=== PATIENT | female | born 2005 | race Caucasian/White ===

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

== ENCOUNTER 2024-01-13 11:43 | Outpatient (CLI) | payer BC, SELFPAY | END 2024-01-13 11:44 | disposition home or self-care (01) | LOC: ANHSURGERY 11:47 | PROVIDERS: Visit Provider Obstetrics & Gynecology | DX: N93.9 Abnormal uterine and vaginal bleeding, unspecified (principal) | CPT/HCPCS: 36415; 86850; 86900; 86901 ==

== ENCOUNTER 2024-01-20 01:33 | Day surgery (SDC) | payer BC, SELFPAY ==
[2024-01-12 12:51] VITALS: BMI 36.7
--- NOTE | 2024-01-12 13:01 | PC.NURSE ---
Addendum entered by Amirah Carrasco RN 01/13/24 09:30: Pt informed that she may take Vraylar and Topamax the morning of surgery with a small sip of water and to bring inhaler with her to the hospital. Original Note: Report to the Outpatient Waiting Room, entrance under the green pavilion located off [facility], at time _0815_ on date ___01/20/24__. Planned Procedure Time: 1015_.? Time changes happen often and if your time is changed the preop area will call you the afternoon before. - You and your visitor will be asked to self-screen and do not enter if you have any COVID symptoms. Please call surgeon if you need to reschedule. - A mask is optional within the hospital at this time. Patients may have clear liquids (water, carbonated beverages, clear teas, apple juice) until 3 hours prior to surgery with a maximum of 20 ounces. - No food from midnight until time of surgery and no smoking - Infants may have breast milk until 4 hours before surgery, formula 6 hours prior to surgery. - Children will be allowed to drink immediately following surgery.? If applicable, please bring a bottle or sippy cup to assist with drinking. Juice, water, soda, and popsicles are readily available.? For infants on formula, please bring formula the day of surgery.? Pacifiers are allowed. Take only the following medications with a SIP of water on the morning of surgery: __ESCITALOPRAM DO NOT STOP ANY OF YOUR OTHER PRESCRIPTION MEDICATIONS PRIOR TO SURGERY EXCEPT THE FOLLOWING Medications to discontinue per physician NONE Date to take last dose Please no make-up, nail italian, hairspray, perfume, deodorant, or body powder the day of surgery.? No jewelry (including any body piercings) or valuables the day of surgery, leave them at home.? Please take a shower or bath the night before, or the morning of, surgery with an antibacterial soap.? Wear comfortable, loose fitting clothing.? Children are encouraged to wear pajamas. - Jewelry must be removed prior to entering the operating room.? Rings and piercings that are not removed may be cut off. - The hospital will not accept responsibility for valuables.? - Please leave all valuables, including medications, at home the day of surgery. If you are going home after surgery, a licensed backhaul driver must drive you home.? - NO public transportation without another adult if you receive anesthesia. - We recommend that an adult stay with you for 24 hours following discharge. - We also recommend that you do not drive, make important decision, drink alcoholic beverages, or take any drugs that were not prescribed by your health care provider for at least 24 hours after your discharge time. For Pediatric surgeries, we recommend two adults accompany the child home. Follow any additional instructions given to you from your surgeon. Telephone instructions given to _PATIENT___and asked if any additional questions and then verbalized understanding. Patient advised to call surgeon office or pre surgery nurse liaison [phone] if any additional questions.
--- NOTE | 2024-01-17 12:49 | PM.IMHP ---
H&P: HPI History of Present Illness Date/Time: 01/17/24 12:49 Chief Complaint: pelvic pain Narrative: 19-year-old 0 admitted for diagnostic laparoscopy secondary to severe pelvic pain. Is a family history of endometriosis. She would also like to have her tubes looked at where there was will undertake chromopertubation risks and benefits reviewed this procedure included exclusive of , aspiration voiding bleeding, transfusion, perforation injury to bowel, bladder, ureters, or other internal organs with need for open laparotomy. She received the [employer] handout entitled laparoscopy. She had all questions answered. She asked to proceed PMFSH Past Medical History Medical History Abdominal bloating Constipation Diarrhea Nausea UTI (urinary tract infection) Surgical History Surgical History No pertinent past surgical history Social History Social History Smoking status: Never smoker Tobacco type: e-cigarettes/vaping Additional smoking assessment comments: VAPING FOR 1 YR Alcohol intake: current Alcohol use details: 2 PER MONTH Substance use: never Substance use type: does not use Living arrangements: with family Spiritual care concerns: No Meds Home Medications and Allergies Home Medications Medication Instructions Recorded Confirmed Type escitalopram oxalate 10 mg tablet 10 mg PO DAILY 08/31/23 01/12/24 History albuterol sulfate 90 mcg/actuation 2 puff inhalation QID PRN 01/12/24 01/12/24 History aerosol inhaler Shortness Of Breath Or Wheezing cariprazine 1.5 mg capsule 1.5 mg PO DAILY 01/12/24 01/12/24 History topiramate 25 mg sprinkle capsule 25 mg PO DAILY 01/12/24 01/12/24 History (Topamax) Allergies Allergy/AdvReac Type Severity Reaction Status Date / Time No Known Allergies Allergy Verified 01/12/24 12:48 Exam Const: General: cooperative, healthy appearing, comfortable and average body habitus Nutritional Appearance: overweight Orientation/consciousness: oriented to person, oriented to place and oriented to time HENMT: Head: normal to inspection Resp: Effort & Inspection: normal respiratory effort Cardio: Rate: regular rate Rhythm: regular rhythm Heart sounds: S1 normal heart sound present and S2 normal heart sound present GI: Inspection: normal to inspection : External Female Exam: normal external appearance Speculum Exam - Vagina: normal appearance of the vagina Speculum Exam - Cervix: normal appearance of the cervix Bimanual exam- vagina & uterus: uterine shape normal and Uterine tenderness Bimanual Exam- Adnexa, other: tender bilaterally Assessment and Plan Assessment and plan (1) Pelvic pain: Code(s): R10.2 - Pelvic and perineal pain Status: Acute Assessment and Plan: proceed with diagnostic laparoscopy
[2024-01-20] VITALS (9 sets, daily range): BP systolic 103–120; BP diastolic 54–91; PULSE 67–89; RESP 14–20; TEMP 36.3–36.9; O2SAT 96–100
--- NOTE | 2024-01-20 05:29 | WPDHPUPDATE1 ---
History and Physical Update Update Date/Time: 01/20/24 05:29 History and Physical has been reviewed, including an updated exam of the patient. There are NO changes in the patient's condition. Risks, benefits, and alternatives have been discussed and questions answered. Patient agrees to proceed with procedure.
[2024-01-20] MEDS: ACETAMINOPHEN 500 MG TABLET 1000 MG PO (08:45)
[2024-01-20] MEDS: LACTATED RINGERS 1,000 ML 30 ML IV CONT ×2 (08:50→11:33)
[2024-01-20] MEDS: KETOROLAC 15 MG/ML VIAL (*BKC) IV PUSH (08:55)
--- NOTE | 2024-01-20 10:31 | WPDANESEPPF ---
Anes - Initial Pre Proc Eval Procedure: Operation Date: 01/20/24 10:15 Proposed Procedures p Diagnostic Laparoscopy, Chromopertubation - Kody Stout MD Date/Time: 01/20/24 10:31 Surgeon: Kody Stout MD Pre Op Diagnosis: pelvic pain, dysmennorhea, heavy bleeding Patient Data Age: 19 Gender: F Height: 1.63 m Weight: 98.4 kg Last Vital Signs Temp 36.3 C L 01/20/24 08:36 Pulse 89 01/20/24 08:36 Resp 18 01/20/24 08:36 BP 105/91 H 01/20/24 08:36 Pulse Ox 98 01/20/24 08:36 O2 Del Method Room Air 01/20/24 08:36 Allergies Allergy/AdvReac Type Severity Reaction Status Date / Time No Known Allergies Allergy Verified 01/20/24 08:54 Home Medications Medication Instructions Recorded Confirmed Type escitalopram oxalate 10 mg tablet 10 mg PO DAILY 08/31/23 01/20/24 History albuterol sulfate 90 mcg/actuation 2 puff inhalation QID PRN 01/12/24 01/20/24 History aerosol inhaler Shortness Of Breath Or Wheezing cariprazine 1.5 mg capsule 1.5 mg PO DAILY 01/12/24 01/20/24 History topiramate 25 mg sprinkle capsule 25 mg PO DAILY 01/12/24 01/20/24 History (Topamax) hydrocodone 5 mg-acetaminophen 325 1 tablet PO Q4H PRN pain #20 tabs 01/20/24 Rx mg tablet Patient hx anesthesia problems: none Family hx anesthesia problems: none Results Review: All pre-operative results and documents have been reviewed as part of the pre-operative evaluation. [facility] Past Medical History Medical History Abdominal bloating Constipation Diarrhea Nausea UTI (urinary tract infection) Surgical History Surgical History No pertinent past surgical history Social History Social History Smoking status: Never smoker Tobacco type: e-cigarettes/vaping Additional smoking assessment comments: VAPING FOR 1 YR Alcohol intake: current Alcohol use details: 2 PER MONTH Substance use: never Substance use type: does not use Living arrangements: with family Spiritual care concerns: No Anes - Eval Final PreProcedure Day of Procedure 01/20/24 10:31 Patient weight: obese Heart: regular rate and rhythm Lungs: clear to auscultation Airway: Mallampati scale class II Neurological: alert and oriented Last oral intake: >/= 8 hours ASA classification: III Emergent: no Anesthetic plan: proceed Anesthesia type and monitoring: general ETT and standard monitoring Results Review: All pre-operative results and documents have been reviewed as part of the pre-operative evaluation. Informed Consent: The patient's anesthetic plan and its attendant risks and benefits were discussed with the patient/family/POA. Questions were solicited and answers provided to the satisfaction of the patient/family/POA.
[2024-01-20 11:12] LABS: BEDSIDEPREGUCG Negative (Negative)
--- NOTE | 2024-01-20 11:25 | P.OP_ITS ---
Procedure Note - Detailed Date of Procedure 01/20/24 Pre-op Diagnosis pelvic pain, dysmennorhea, heavy bleeding Post-op Diagnosis Other (Pelvic pain/ dysmenorrhea/ bilateral ovarian cysts/ endometriosis) Procedure Performed laparoscopy destruction bilateral ovarian cysts/cautery of endometriosis/ chromopertubation Surgeon Kody Stout MD Anesthesia General Indications 19-year-old female with pelvic pain dyspareunia Findings normal-appearing uterus. Normal-appearing gallbladder and liver edge. Normal- appearing tubes. Bilateral simple ovarian cyst. Small area of endometriosis on right ovary. Description of Procedure Patient was prepped draped in the sterile fashion placed in dorsal lithotomy position. General tracheal anesthesia weighted speculum placed in posterior fornix vagina. The JORGE was placed in the cervix to be used for uterine manipulation and passage of the methylene blue. Bladder was emptied of clear urine in the weighted speculum was removed. The gloves were changed. Infraumbilical incision made the Veress needle passed in the abdomen. Abdomen filled with CO2 gas [id number]. The 5mm trocar advanced under direct visualization with the disc opened in no injury seen. Patient placed in Trendelenburg and a suprapubic incision made. The 5mm trocar advanced direct visualization assuring injury. The above findings were seen in photo documentation undertaken each of the fallopian tube was were open by passage of methylene blue the right was somewhat more difficult to see the blue but eventually it passed. The area of endometriosis on the right ovary was cauter ized at 35 w per 2nd. Irrigation undertaken to clear and photo documentation was undertaken. The lower site removed. The gas removed from the abdomen. The upper site removed. The incisions closed with 4 Monocryl glue. The instruments removed from the vagina. The patient went to recovery in satisfactory condition. All sponge covered view of a instrument counts were correct. There were no immediate complications Estimated Blood Loss 5 Drains No Packing No Pathology None sent Complications No immediate complications Condition Stable Disposition PACU
[2024-01-20] MEDS: fentaNYL CITRATE INJ (*CRX) 100 MCG/2 ML VIAL 25 MCG IV PUSH ×4 (11:55→12:14)
[2024-01-20] MEDS: oxyCODONE HCL (*CRX) 5 MG TAB IR PO (12:52)
== END 2024-01-20 13:45 | disposition home or self-care (01) ==
PROVIDERS: Visit Provider Obstetrics & Gynecology
PROC: (CPT 49320; principal; 2024-01-20 10:15)
DX: R10.2 Pelvic and perineal pain (principal); N94.6 Dysmenorrhea, unspecified; N83.202 Unspecified ovarian cyst, left side; N83.201 Unspecified ovarian cyst, right side
CPT/HCPCS: 58662; 58350; A9270; J1100; J1885; J2250; J2405; J2704; J3010; J7030; J7120; Q9968

== ENCOUNTER 2024-06-17 23:55 | Emergency (ER) | payer BC, SELFPAY ==
--- OUTSIDE RECORDS SUMMARY | 2024-06-17 23:59 | XMS_ITS ---
Author Organization [facility] Address [address] [place] [address] Care Team Providers Care Curb Supervisor Name Role Phone Amirah Palacios Primary Care Provider Allergies Allergen (clinical drug ingredient) Drug/Non Drug Allergy documented on EMR Reaction Allergy Type Onset Date Status No Known Drug Allergy Unknown Drug Allergy Active REASON FOR VISIT Psych F/U, last seen 03/31/23 Medications Medication SIG (Take, Route, Frequency, Duration) Notes Start Date End Date Status Vraylar 3 MG 1 capsule Orally Once a day for 14 days NEEDS TO SCHEDULE APPOINTMENT Not-Taking Vraylar 4.5 MG 1 capsule Orally Once a day for 30 days Active Escitalopram Oxalate 10 MG 1 tablet Orally Once a day for 30 days Active Amphetamine-Dextroa mphet ER 20 MG 1 capsule in the morning Orally Once a day for 30 days 07/28/2023 Active Social History Tobacco Use: Social History Observation Description Date Details (start date - stop date) Current Smoker NA - NA Sex Assigned At : Social History Observation Description Sex Assigned At Female Dont use, Tobacco Use/Smoking Question Answer Notes Are you a current every day smoker Additional Findings: Tobacco User e-Cigarette Tobacco Control (Standard) Question Answer Notes Tobacco use: Current every day smoker Additional Findings: Tobacco user e-cigarette Vital Signs Height 64.50 in 07/28/2023 Weight 164.8 lbs 07/28/2023 BMI 27.85 kg/m2 07/28/2023 BMI Percentile 89.69 % 07/28/2023 Blood pressure systolic 106 mm Hg 07/28/19 24 Blood pressure diastolic 68 mm Hg 024 Heart Rate 79 /min 07/28/2023 Oximetry 98 % 07/28/2023 Temperature 97.4 degrees Fahrenheit 07/28/19 24 Encounters Encounter Location Date Provider Diagnosis [address] [place] [address] 07/28/2023 Amirah Suzanne Bipolar 2 disorder F31.81 ; ADHD (attention deficit hyperactivity disorder) F90.9 ; JASON (generalized anxiety disorder) F41.1 ; Body mass index (BMI) pediatric, 85th percentile to less than 95th percentile for age Z68.53 ; Nutritional counseling Z71.3 and Exercise counseling Z71.82 Assessments Encounter Date Diagnosis (ICD Code) Assessment Notes Treatment Notes Treatment Clinical Notes Section Notes 07/28/2023 Bipolar 2 disorder (ICD-10 - F31.81) 07/28/2023 ADHD (attention deficit hyperactivity disorder) (ICD-10 - F90.9) 07/28/2023 JASON (generalized anxiety disorder) (ICD-10 - F41.1) 07/28/2023 Body mass index (BMI) pediatric, 85th percentile to less than 95th percentile for age (ICD-10 - Z68.53) 07/28/2023 Nutritional counseling (ICD-10 - Z71.3) 07/28/2023 Exercise counseling (ICD-10 - Z71.82) 07/28/2023 Other May self-administer medications or be administered own oral medications per [facility] protocols. Provided informed consent with understanding of side effects, adverse effects, risks and benefits as well as alternative treatments as previously discussed and with the above recommended medications & other aspects of the treatment program. Agrees to return sooner if symptoms worsen or suicidal or homicidal ideations occur. Plan Of Treatment Medication Medication Name Sig Start Date Stop Date Notes Vraylar 4.5 MG 1 capsule Orally Onc e a day for 30 days Vyvanse 50 MG 1 capsule in the mor yordan Orally Once a day for 30 days Escitalopram Oxalate 10 MG 1 tablet Oral ly Once a day for 30 days Amphetamine-Dextroamphet ER 20 MG 1 capsule in the morning Orally Once a day for 30 days 07/28/2023 Treatment Notes Assessment Notes Other May self-administer medications or be administered own oral medications per [facility] protocols. Provided informed consent with understanding of side effects, adverse effects, risks and benefits as well as alternative treatments as previously discussed and with the above recommended medications & other aspects of the treatment program. Agrees to return sooner if symptoms worsen or suicidal or homicidal ideations occur. Next Appt Details Follow Up: 4 Weeks, Reason: Psychiatric Follow-up & Medication Management Progress Notes * Merlyn ROBLERODOB:[birth year] (18 yo F)Acc No.[id number]:07/28/2023 Patient: Merlyn FISHER Provider: Saad Palacios, DNP, APPEALS AND GENERALIST CLERK, PMHNP-BC :2005 A ge:18 Y S ex:Female Date:07/28/2023 Address: [address], [id number] Check In:12:10 PM INTERMEDIATE ACCOUNTANT Subjective: * Chief Complaints: * P sych F/ULast seen 03/31/23 * HPI: I nterim History: Emergency room visit N o. Was hospitalized N o. D epression Screening: PHQ-9 L ittle interest or pleasure in doing things?Several days F eeling down, depressed, or hopeless N early every day T rouble falling or staying asleep, or sleeping too much N early every day F eeling tired or having little energy N early every day P oor appetite or overeating N early every day F eeling bad about yourself or that you are a failure, or have let yourself or your family down M ore than half the days T rouble concentrating on things, such as reading the newspaper or watching television N early every day M oving or speaking so slowly that other people could have noticed; or the opposite, being so fidgety or restless that you have been moving around a lot more than usual N early every day T houghts that you would be better off or of hurting yourself in some way N ot at all T otal Score 2 1 I nterpretation S evere Depression S creening: Bland Suicide Severity Rating Scale (LF) D o you want to initiate with S creener form 1 . Wish to be : Have you wished you were or wished you could go to sleep and not wake up? N o 2 . Suicidal Thoughts: Have you actually had any thoughts of killing yourself? N o 6 . Suicide Behaviour: Have you ever done anything,started to do anything, or prepared to end your life? N o I nterpretation: L ow Risk P elsie Note: 18-year-old female client presents in-person for follow-up psychiatric and medication management appointment. Client was last seen on 03/31/2023 as a new client evaluation and is being followed for the management of bipolar 2 disorder and ADHD. Client is amenable to appointment today. Changes since the last visit: Likes the Vraylar and Lexapro. The Vyvanse is making her tired and feeling like a zombie and make her feel worried, restless and have poor concentration. She would like to try something else for ADHD. Goals: Management of ADHD signs and symptoms and mood stabilization Medications effective.: Reports that medications are somewhat effective Medication Adherence: Not taking Vyvanse due to above complaints Side effects.: See above Sleep: Reports difficulty getting to sleep - takes several hours to get to sleep. Nightmares/Night terrors: Denies Appetite: Good - reports overeating Mood: More depressed lately, worried Depression Rating (10/10 being the worst): 6-7 Suicidal ideation: Denies Homicidal ideation: Denies Anxiety Rating (10/10 being the worst): 9 Anger/Irritability Rating (10/10 being the worst): 9 Psychotic Symptoms/Behaviors: None observed or reported Manic Behaviors: None observed or reported Obsessive/Compulsive Behaviors: None observed or reported Signs/Symptoms of trauma/PTSD: None observed or reported Substance Use: Caffeine - Not assessed this visit, N icotine - Vaping daily, A lcohol - on weekends--3-4 drinks on Fridays and Saturdays, M arijuana - None, O ther Substances - None Medical concerns or hospitalizations: No medical concerns at this time Therapy: Not currently in therapy. C SSRS Interpretation and Follow Up Plan: CSSRS Interpretation and Follow Up Plan. CSSRS Interpretation and Follow Up Plan C SSRS Screen documented using SF Y es M oderate or High risk requires selection of a follow up plan C SSRS No/Low: intervention not needed at this time * ROS: P sych ROS: Constitutional A ll systems negative unless indicated otherwise. , Denies past suicide attempt. , Denies SI/HI/AH/VH , . * Medical History: * Surgical History: n ose 2004 * Hospitalization/Major Diagno stic Procedure: D enies Past Hospitalization * Family History: F ather: alive. M other: alive. 1 sister(s) - healthy. . * Social History: P rimary Social History: L iving Arrangement L iving Arrangement: Dependent Living ,Living with: Parent(s),Sister ,Is this a supportive environment? Yes .. 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[facility] [employer] T obacco Use: T obacco Use/Smoking A re you a c urrent every day smoker A dditional Findings: Tobacco User e -Cigarette Tobacco Control (Standard) T obacco use: C urrent every day smoker A dditional Findings: Tobacco user e -cigarette M iscellaneous: M ethod of learning P referred method of learning: D iscussion,Demonstration,Hearing * Medications: T akingEscitalopram Oxalate 10 MG Tablet 1 tablet Orally Once a day Vyvanse 50 MG Capsule 1 capsule in the morning Orally Once a day Taking Escitalopram Oxalate 10 MG Tablet 1 tablet Orally Once a day Taking Vyvanse 50 MG Capsule 1 capsule in the morning Orally Once a day Not-TakingVraylar 3 MG Capsule 1 capsule Orally Once a day , Notes to Pharmacist: NEEDS TO SCHEDULE APPOINTMENTMedication List reviewed and reconciled with the patientNot-Taking Vraylar 3 MG Capsule 1 capsule Orally Once a day , Notes to Pharmacist: NEEDS TO SCHEDULE APPOINTMENTMedication List reviewed and reconciled with the patient * Allergies: N o Known Drug Allergyno[Allergies Verified] Objective: * Vitals: I nitials: kjs, Wt:164.8, Ht:64.50, BMI:27.85, BP:106/68, HR:79, Oxygen sat %:98, Temp:97.4, BMI %:89.69, LMP:03, Pain scale:0, Wt %:89.89, Ht %:53.26. * Examination: P sychiatry: APPEARANCE: a ppropriately dressed/groomed, appears stated age. ATTENTION: g ood. ORIENTATION: p erson, place and time. ATTITUDE: c ooperative, pleasant. AFFECT: a ppropriate, full range, congruent. MOOD: m ore depressed, worried. SPEECH: c lear, normal/R/V/R, talkative. PSYCHOMOTOR ACTIVITY: w ithin normal range. ABNORMAL BODY MOVEMENTS: n one. CURRENT HOMICIDALITY: n one. CURRENT SUICIDALITY: d enies. THOUGHT PROCESS: l inear, goal-directed. THOUGHT CONTENT: u nremarkable. PERCEPTUAL DISORDERS: n o perceptual disorder noted. INSIGHT: f air. JUDGEMENT: f air. INTELLIGENCE (estimate): a verage. Assessment: * Assessment: 1. B ipolar 2 disorder - F31.81 2 . A DHD (attention deficit hyperactivity disorder) - F90.9 3 . G AD (generalized anxiety disorder) - F41.1 4 . B alaina mass index (BMI) pediatric, 85th percentile to less than 95th percentile for age - Z68.53 (Primary) 5 . N utritional counseling - Z71.3 6 . E xercise counseling - Z71.82 Plan: * Treatment: 2. A DHD (attention deficit hyperactivity disorder) Stop Vyvanse Capsule, 50 MG, 1 capsule in the morning, Orally, Once a day, 30 days, 30; S tart Amphetamine-Dextroamphet ER Capsule Extended Release 24 Hour, 20 MG, 1 capsule in the morning, Orally, Once a day, 30 days, 30 Capsule, Refills 0. 3. G AD (generalized anxiety disorder) Continue Escitalopram Oxalate Tablet, 10 MG, 1 tablet Orally Once a day, 30 days, 30. 4. O thers Notes: May self-administer medications or be administered own oral medications per [facility] protocols. Provided informed consent with understanding of side effects, adverse effects, risks and benefits as well as alternative treatments as previously discussed and with the above recommended medications & other aspects of the treatment program. Agrees to return sooner if symptoms worsen or suicidal or homicidal ideations occur. * Recommended Wellness and Pre vention Guidelines: * S ozzy álvarez L ast Done N ext Due A ction Taken N ONCOMPLIANT H IV screening - 0 07/28/2023 - * Procedure Codes: 3 008F BODY MASS INDEX [id number] MEDICAL NUTRITION, INDIV, [id number] MEDICAL NUTRITION, INDIV, [id number] BEHAV CHNG SMOKING 3-10 MIN * Preventive Medicine: Counseling: C are goal follow-up plan: BMI management provided Y es Above Normal BMI Follow-up L ifestyle education regarding diet C ommunication to patient: Counseling for physical activity provided Y es Counseling for nutrition provided Y es S MOKING: Patient counselled on the dangers of tobacco use and urged to quit. . * Follow Up: 4 Weeks (Reason: Psychiatric Follow-up & Medication Management) * * Sign off status: Completed true * Provider: Saad Palacios DNP, APPEALS AND GENERALIST CLERK, PMHNP- Date: 07/28/2023 Generated for Printing/Faxing/eTransmitting on: 0 06/17/2024 11:59 PM INTERMEDIATE ACCOUNTANT History and Physical Notes * HPI (History of Present Illness) Category Sub-Category Detail Notes Category Not es Interim History Was hospitalized No Emergency room visit No Progress Note 18-year-old female client presents in-person for follow-up psychiatric and medication management appointment. Client was last seen on 03/31/2023 as a new client evaluation and is being followed for the management of bipolar 2 disorder and ADHD. Client is amenable to appointment today. Changes since the last visit: Likes the Vraylar and Lexapro. The Vyvanse is making her tired and feeling like a zombie and make her feel worried, restless and have poor concentration. She would like to try something else for ADHD. Goals: Management of ADHD signs and symptoms and mood stabilization Medications effective.: Reports that medications are somewhat effective Medication Adherence: Not taking Vyvanse due to above complaints Side effects.: See above Sleep: Reports difficulty getting to sleep - takes several hours to get to sleep. Nightmares/Night terrors: Denies Appetite: Good - reports overeating Mood: More depressed lately, worried Depression Rating (10/10 being the worst): 6-7 Suicidal ideation: Denies Homicidal ideation: Denies Anxiety Rating (10/10 being the worst): 9 Anger/Irritability Rating (10/10 being the worst): 9 Psychotic Symptoms/Behaviors: None observed or reported Manic Behaviors: None observed or reported Obsessive/Compulsive Behaviors: None observed or reported Signs/Symptoms of trauma/PTSD: None observed or reported Substance Use: Caffeine - Not assessed this visit, Nicotine - Vaping daily, Alcohol - on weekends--3-4 drinks on Fridays and Saturdays, Marijuana - None, Other Substances - None Medical concerns or hospitalizations: No medical concerns at this time Therapy: Not currently in therapy Depression Screening PHQ-9 Little inte rest or pleasure in doing things: Several days Feeling down, depressed, or hopeless: Ne molly every day Trouble falling or staying asleep, or sl eeping too much: Nearly every day Feeling tired or having little energy: N early every day Poor appetite or overeating: Nearly ever y day Feeling bad about yourself o r that you are a failure, or have let yourself or your family down: More than half the days Trouble concentrating on thi ngs, such as reading the newspaper or watching television: Nearly every day Moving or speaking so slowly that other people could have noticed; or the opposite, being so fidgety or restless that you have been moving around a lot more than usual: Nearly every day Thoughts that you would be b oliver off or of hurting yourself in some way: Not at all Total Score: 21 Interpretation: Severe Depression Screening Bland Suicide Sev erity Rating Scale (LF) Do you want to initiate with: Screener form 1. Wish to be : Have you wished you were or wished you could go to sleep and not wake up?: No 2. Suicidal Thoughts: Have you actually had any thoughts of killing yourself?: No 6. Suicide Behavior Question: Have you ever done anything,started to do anything, or prepared to end your life?: No Interpretation:: Low Risk Do Not Use CSSRS Interpretation and Follow Up Plan CSSRS Interpretation and Follow Up Plan CSSRS Screen documented using SF: Yes Moderate or High risk requir es selection of a follow up plan: CSSRS No/Low: intervention not needed at this time Examination Category Sub-Category Detail Notes Category Not es Psychiatry APPEARANCE: appropriately dr dunn/gt, appears stated age ATTITUDE: cooperative, pleasan t PSYCHOMOTOR ACTIVITY: within normal rang e ABNORMAL BODY MOVEMENTS: none ATTENTION: good ORIENTATION: person, place and ti me AFFECT: appropriate, full ra nge, congruent MOOD: more depressed, worr ied SPEECH: clear, normal/R/V/R, talkative INSIGHT: fair JUDGEMENT: fair THOUGHT PROCESS: linear, goal-directe d THOUGHT CONTENT: unremarkable PERCEPTUAL DISORDERS: no perceptual diso rder noted CURRENT SUICIDALITY: denies CURRENT HOMICIDALITY: none INTELLIGENCE (estimate): average
--- OUTSIDE RECORDS SUMMARY | 2024-06-17 23:59 | XMS_ITS | Continuity of Care Document ---
Author Organization [facility] Address [address] [place] [address] Phone Care Team Providers Care Web Analytics Specialist Name Role Phone Tabitha PT, DPT, Irais Unavailable Unavaila ble Procedures Procedure Date PT Re-evaluation Therapeutic Exercise Therapeutic Activities Therapeutic Activities Therapeutic Exercise Manual Therapy Therapeutic Activities Manual Therapy Neuromuscular Re-Ed Therapeutic Activities Neuromuscular Re-Ed Therapeutic Exercise Manual Therapy Therapeutic Activities Therapeutic Exercise Manual Therapy Manual Therapy PT Evaluation Low Complexity Therapeutic Activities Therapeutic Exercise Advance Directives Directive Yes / No Effective Date File Name No Information Encounters Encounter Description Practice Location Reason(s) For Visit Diagnoses Date Provider Providers Copied on Encounter [facility] [facility], [place], [place], [id number], tel:[phone] [place] No Information Tabitha Pierre Referring Provider: Kumar Rivera [address] [facility] [address], [place], [address]. tel:[phone] [facility], [place], [place], [id number], tel:[phone] [place] No Information Lu Irais. . Referring Provider: Daysi Blackburn [address] [address], [place], [place], [facility]. tel:[phone] [address], [place], [place], [id number], tel:[phone] [place] No Information Lu Irais. . Referring Provider: Daysi Blackburn [address] [address], [place], [place], [facility]. tel:[phone] [place] [address], [id number], tel:[phone] [place] No Information Lu Irais. . Referring Provider: Daysi Blackburn [address] [address], [place], [place], [facility]. tel:[phone], [place], [id number], tel:[phone] [place] No Information Lu Irais. . Referring Provider: Daysi Blackburn [address] [address], [place], [place], [facility]. tel:[phone], [id number], tel:[phone] [place] No Information Lu Irais. . Referring Provider: Daysi Blackburn [address] [address], [place], [place], [facility]. tel:[phone] Family History Family Member Type Diagnosis Age At Onset No Information Payers Payer name Insurance type Covered republican ID Authorthaliaa edgar(s) [facility] [id number] Social History Type Description Quantity Date Captured [...]
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
--- OUTSIDE RECORDS SUMMARY | 2024-06-17 23:59 | XMS_ITS | Patient Health Record ---
Author Organization [facility] Address [address] [place] [address] Care Team Providers Care Refrigeration Supervisor Name Role Phone Amirah Palacios Primary Care Provider [phone] Allergies Allergen (clinical drug ingredient) Drug/Non Drug Allergy documented on EMR Reaction Allergy Type Onset Date Status No Known Drug Allergy Unknown Drug Allergy Active Reason For Referral No Information Medications Medication SIG (Take, Route, Frequency, Duration) Notes Start Date End Date Status Amphetamine-Dextroamphet ER 25 MG 1 capsule in the morning Orally Once a day for 30 days 09/28/2023 Active Vraylar 4.5 MG 1 capsule Orally Onc e a day for 30 days Active Escitalopram Oxalate 20 MG 1 tablet Oral ly Once a day for 30 days Active Social History Tobacco Use: Social History [...] day smoker Additional Findings: Tobacco user e-cigarette Problems Problem Type SNOMED Code ICD Code Onset Dates Problem Status W/U Status Risk Notes Problem Attention deficit hyperactivity disorder (257186090) ADHD (attention deficit hyperactivity disorder) (F90.9) Active confirmed Problem Generalized anxiety disorder (74025721) JASON (generalized anxiety disorder) (F41.1) Active confirmed Problem Bipolar 2 disorder (98079212) Bipolar 2 disorder (F31.81) Active confirmed Vital Signs Heart Rate 79 /min 07/28/2023 Temperature 97.4 degrees Fahrenheit 07/28/2023 Blood pressure diastolic 68 mm Hg 07/28/2023 Oximetry 98 % 07/28/2023 Height 64.50 in 07/28/2023 BMI Percentile 89.69 % 07/28/2023 Blood pressure systolic 106 mm Hg 07/28/2023 Weight 164.8 lbs 07/28/2023 BMI 27.85 kg/m2 07/28/2023 Encounters Encounter Location Date Provider Diagnosis [address] [place] [address] 07/28/2023 Amirah Palacios Bipolar 2 disorder F31.81 ; ADHD (attention deficit hyperactivity disorder) F90.9 ; JASON (generalized anxiety disorder) F41.1 ; Body mass index (BMI) pediatric, 85th percentile to less than 95th percentile for age Z68.53 ; Nutritional counseling Z71.3 and Exercise counseling Z71.[address] [facility] [place] [address] 09/28/2023 Amirah Palacios Bipolar 2 disorder F31.81 ; ADHD (attention deficit hyperactivity disorder) F90.9 ; JASON (generalized anxiety disorder) F41.1 ; Body mass index (BMI) pediatric, 85th percentile to less than 95th percentile for age Z68.53 ; Nutritional counseling Z71.3 and Exercise counseling Z71.82 Assessments Encounter Date Diagnosis (ICD Code) Assessment Notes Treatment Notes Treatment Clinical Notes Section Notes 09/28/2023 Bipolar 2 disorder (ICD-10 - F31.81) 07/28/2023 Bipolar 2 disorder (ICD-10 - F31.81) 07/28/2023 ADHD (attention deficit hyperactivity disorder) (ICD-10 - F90.9) 09/28/2023 ADHD (attention deficit hyperactivity disorder) (ICD-10 - F90.9) 09/28/2023 JASON (generalized anxiety disorder) (ICD-10 - F41.1) 07/28/2023 JASON (generalized anxiety disorder) (ICD-10 - F41.1) 07/28/2023 Body mass index (BMI) pediatric, 85th percentile to less than 95th percentile for age (ICD-10 - Z68.53) 09/28/2023 Body mass index (BMI) pediatric, 85th percentile to less than 95th percentile for age (ICD-10 - Z68.53) 09/28/2023 Nutritional counseling (ICD-10 - Z71.3) 07/28/2023 Nutritional counseling (ICD-10 - Z71.3) 07/28/2023 Exercise counseling (ICD-10 - Z71.82) 09/28/2023 Exercise counseling (ICD-10 - Z71.82) 07/28/2023 Other May self-administer medications or be administered own oral medications per [facility] protocols. Provided informed consent with understanding of side effects, adverse effects, risks and benefits as well as alternative treatments as previously discussed and with the above recommended medications & other aspects of the treatment program. Agrees to return sooner if symptoms worsen or suicidal or homicidal ideations occur. 09/28/2023 Other May self-administer medications or be administered own oral medications per [facility] protocols. Provided informed consent with understanding of side effects, adverse effects, risks and benefits as well as alternative treatments as previously discussed and with the above recommended medications & other aspects of the treatment program. Agrees to return sooner if symptoms worsen or suicidal or homicidal ideations occur. Plan Of Treatment No Information Insurance Providers Payer Name Payer Address Payer Phone Subscriber Number Group Number Insured Name Patient Relationship to Insured Coverage Start Date Coverage End Date [facility] [address] [place] [address] [phone] [id number] Merlyn Mota Self - patient is the insured 3 Medical (General) History Medical History History ICD Code bipolar disorder ADHD Surgical History Surgery Date(Month/Year) 2004 Hospitalization History Reason Date(Month/Year)
--- OUTSIDE RECORDS SUMMARY | 2024-06-17 23:59 | XMS_ITS | Encounter Summary ---
Author Organization [facility] Address [address] [place] [address] Care Team Providers Care Trim Crew Supervisor Name Role Phone Elaine Hill MD Primary Care Provider [phone] Elaine Hill MD Primary Care Provider [phone] Karla Galan APRN-HANDLE MACHINE OPERATOR Primary Care Provider + Reason for Visit * Reason Onset Date Comments Results 06/07/2014 Encounter Details Date Type Department Care Team (Late st Contact Info) Description 06/07/2014 Telephone [facility] Pediatrics - Dermatology [address] [place] [address] Nicole Urbina MD [address] [facility] [address] [place] [address] Results Social History Tobacco Use Types Packs/Day Years Used Date Smoking Tobacco: Never Alcohol Use Standard Drinks/Week Comments Not Asked 0 (1 standard drink = 0.6 oz pur e alcohol) Sex and Gender Information Value Date Recorded Sex Assigned at Not on file Gender Identity Not on file Sexual Orientation Not on file documented as of this encounter Miscellaneous Notes * Telephone Encounter - Henry Rascon MD - 06/19/2014 1:13 PM CST Called patient's parent at [phone] (M) Discussed with her that outside consultation for the path lab at [facility] also concurredd with our benign findings for the biopsy. Mom appreciative of the phone call Henry Rascon MD SERVICE ASSOCIATE * Telephone Encounter - Henry Rascon MD - 06/07/2014 10:36 AM CST Mom called back 1/2 hour later with more questions. Called her at [phone] Discussed the results with her in detail. 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 We have sent the specimen to another lab - [facility] for confirmation. Will follow up for the same Also discussed with dad to follow up in the clinic of the lesion recurs or they notice atypical changes at the biopsy site Mom also mentioned that the site is taking longer to heal . No fevers or chills. Reassured her about the healing process and continue the recommended wound care Mom appreciated the phone call Henry Rascon MD SERVICE ASSOCIATE * Telephone Encounter - Henry Rascon MD - 06/07/2014 8:28 AM CST 06/07/2014 Called patient's parent at [phone] (M) Discussed the results of the biopsy with her dad Mr. Aroldo Villatoro [phone] (M) - Benign CMP (Not present at margin). 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 We have sent the specimen to another lab - [facility] for confirmation. Will follow up for the same Also discussed with dad to follow up in the clinic of the lesion recurs or they notice atypical changes at the biopsy site Dad stated understanding and appreciated the phone call Henry Rascon MD SERVICE ASSOCIATE documented in this encounter Plan of Treatment Not on file documented as of this encounter Visit Diagnoses Not on filedocumented in this encounter Additional Health Concerns Infection Onset Date Last Indicated Resolved Time COVID-19 Under Investigation 06/04/2024 06/04/2024 06/04/2024 4:26 AM FOOD SERVICE ASSOCIATE documented as of this encounter Care Teams Trim Crew Supervisor Relationship Specialty Start Date End Date Elaine Hill MD [address] [address] PCP - General 02/25/10 08/17/16 Elaine Hill MD [address] [address] PCP - General Pediatrics 08/18/16 01/08/20 Karla Galan APRN-HANDLE MACHINE OPERATOR [address] [address] PCP - General Nurse Practitioner 01/09/20 documented as of this encounter
--- OUTSIDE RECORDS SUMMARY | 2024-06-17 23:59 | XMS_ITS ---
Author Organization [facility] Address [address] [place] [address] Care Team Providers Care Associate Store Manager Name Role Phone Amirah Palacios Primary Care Provider [phone] REASON FOR VISIT 1 Month Psych F/U & Med Refill Social History Sex Assigned At : Social History Observation Description Sex Assigned At Female Encounters Encounter Location Date Provider Diagnosis [address] [place] [address] 08/25/2023 Amirah Palacios Plan Of Treatment No Information Progress Notes * Merlyn ROBLERODOB:[birth year] (19 yo F)Acc No.[id number]:08/25/2023 UNLOCKED PROGRESS NOTE Patient: Merlyn FISHER Provider: Saad Palacios DNP, APRN, PMHNP-BC :2005 A ge:18 Y S ex:Female Date:08/25/2023 [facility] [facility] Subjective: * Chief Complaints: * 1 . 1 Month Psych F/U & Med Refill. * Medical History: Objective: * Vitals: Assessment: Plan: * Treatment: * * Electronic signature of Sherley Eckert , [id number] on 06/17/2024 at 11:59 PM ANIMAL IMPERSONATOR Sign off status: Pending * Provider: Saad Palacios DNP, APRN, PMHNP-BC Date: 0 08/25/2023 Generated for Printing/Faxing/eTransmitting on: 0 06/17/2024 11:59 PM ANIMAL IMPERSONATOR
--- OUTSIDE RECORDS SUMMARY | 2024-06-17 23:59 | XMS_ITS | Encounter Summary ---
Author Organization [facility] Address [address] [place] [address] Care Team Providers Care Diabetic Educator Name Role Phone Kody Francisco MD Primary Care Provider [phone] Encounter Details Date Type Department Care Team (Late st Contact Info) Description 06/08/2024 Results Follow-Up [facility] Primary Care [address] [address] Chaitanya Vickers PA-C [address] [place] [address] CBC WITH DIFFERENTIAL, HEMOGLOBIN A1C, TSH REFLEXIVE, Additional followed-up results: 2 Social History Tobacco Use Types Packs/Day Years Used Date Smoking Tobacco: Never Smokeless Tobacco: Never Alcohol Use Standard Drinks/Week Comments Never 0 (1 standard drink = 0.6 oz pur e alcohol) Feeling Safe Answer Date Recorded Are you in a relationship wi th someone who hurts you emotionally and/or physically? No 05/31/2024 Comments No Sex and Gender Information Value Date Recorded Sex Assigned at Female 05/31/2024 8:03 AM INSPECTOR ELEVATORS Legal Sex Female 1:02 PM CDT Gender Identity Not on file Sexual Orientation Straight 05/31/2024 8: 03 AM INSPECTOR ELEVATORS documented as of this encounter Miscellaneous Notes * Result Encounter Note - Chaitanya Vickers PA-C - 06/08/2024 8:59 AM CST LDL 130 and HDL 39. Recommended low-cholesterol diet and regular exercise. Additional labs within normal limits. ECTOR ELEVATORS documented in this encounter Plan of Treatment Upcoming Encounters Date Type Department Care Team (Late st Contact Info) Description 08/24/2024 9:30 AM CDT Office Visit [facility] Minimally Invasive Gynecology [address] [facility] [address] [place] [address] oBone Tanner MD [address] [place] [address] 09/04/2024 9:00 AM CDT Office Visit [facility] Primary Care [facility] [address] [place] [address] Chaitanya Vickers PA-C [address] [address] documented as of this encounter Visit Diagnoses Not on filedocumented in this encounter Care Teams Diabetic Educator Relationship Specialty Start Date End Date Kody Francisco MD [address] [place] [address] PCP - General Internal Medicine 06/07/24 documented as of this encounter
--- OUTSIDE RECORDS SUMMARY | 2024-06-17 23:59 | XMS_ITS | Clinical Summary ---
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 for informational/ educational purposes only.) 03/23/2024 3:53 PM [facility] 03/23/2024 3:54 PM [facility] Narrative Resulting Agency Comment Performing Organization Information: Site ID: [id number] Name: [employer] Address: [address] [place] [address] Director: Rasta Alfaro MD Linda Benavidez NP LABORATORY Final Result [facility] [address] [place] [address], * CHLAMYDIA GC RNA (09/29/2023 7:18 AM CDT) SPECIMEN SOURCE URINE 7:18 AM CDT [facility] CHLAMYDIA PCR NEGATIVE NEGATIVE 09/30/2023 12:48 AM CDT [facility] Comment:PERFORMED BY NUCLEIC ACID AMPLIFICATION N.GONORRHOEAE RNA TMA NEGATIVE NEGATIVE 09/30/2023 12:48 AM CDT [facility] Comment:PERFORMED BY NUCLEIC ACID AMPLIFICATION URINE SPECIMEN / Unknown 09/29/2023 7:18 AM CDT Sheldon Eaton DO MICROBIOLOGY - GENERAL ORDERAB LES Final Result [facility] [address] [place] [address], [place] [phone] [facility] [address] [place] [address], from Last 3 Months or Most Recently Relevant to Health Maintenance Insurance [employer] Director Of Cardiology Service Line Relationship Specialty [place] [id number] [facility] [address] [place] [address] PCP - General Nurse Practitioner Family 12/30/23 Kody Sumner MD [address] [address] [address] [place] [address] OBGYN 01/26/23
--- OUTSIDE RECORDS SUMMARY | 2024-06-17 23:59 | XMS_ITS | Clinical Summary ---
Author Organization [facility] Address [address] [place] [address] Care Team Providers Care Employee Training Specialist Name Role Phone Kody Francisco MD Primary Care Provider [phone] Allergies No known active allergies Medications escitalopram oxalate (LEXAPRO) 10 mg tablet Take 10 mg by mouth daily. 4 Active lisdexamfetamin e (Vyvanse) 30 mg capsule Take 30 mg by mouth daily in the morning. 3 Active albuterol sulfate HFA 90 mcg/actuation aerosol inhaler INHALE 2 PUFFS INTO THE LUNGS EVERY 6 HOURS NEEDED FOR WHEEZE Active topiramate (TOPAMAX) 50 mg tabletIndicatio ns:Binge eating disorder, unspecified severity Take 1 Tablet (50 mg) by mouth daily. 30 Tablet 5 Active topiramate (TOPAMAX) 25 mg tablet Take 50 mg by mouth daily. 4 06/07/19 25 Discontinued Active Problems Problem Noted Date Diagnosed Date Generalized anxiety disorder 01/04/2024 Hx of colonic polyps 09/27/2023 Binge eating disorder 11/05/2022 ADHD (attention deficit hyperactivity disorder) 12/26/2021 Irritable bowel syndrome with mixed bowel habits 04/27/2020 Chronic idiopathic constipation 01/09/2020 Overview (06/06/2024): Last Assessment & Plan: A&P - chronic [...] Pelvic floor dysfunction 10/08/2019 Depressive disorder 07/19/2019 Resolved Problems Problem Noted Date Diagnosed Date Resolved Date Bipolar 1 disorder 11/05/2022 5 Anxiety 12/26/2021 06/06/2024 Encounters Date Type Department Care Team Description 06/08/2024 Results Follow-Up [place] [address] [facility] [address] [place] [phone] Chaitanya Vickers PA-C CBC WITH DIFFERENTIAL, HEMOGLOBIN A1C, TSH REFLEXIVE, Additional followed-up results: 2 06/07/2024 11:00 AM RADIO TIME SALESPERSON Office Visit [facility] [address] [place] [phone] Chaitanya Vickers PA-C Encounter for medical examination to establish care (Primary Dx); Attention deficit hyperactivity disorder (ADHD), unspecified ADHD type; Generalized anxiety disorder; Depressive disorder; Binge eating disorder, unspecified severity; Irritable bowel syndrome with mixed bowel habits; Interstitial cystitis; Endometriosis; Pelvic floor dysfunction; Pre-syncope; Screening for thyroid disorder; Screening for lipid disorders; Screening for diabetes mellitus; Class 1 obesity due to excess calories without serious comorbidity with body mass index (BMI) of 31.0 to 31.9 in adult 06/05/2024 External Device Data [facility] Provider, Abstract 06/05/2024 External Device Data [facility] Provider, Abstract 06/05/2024 External Device Data [facility] Provider, Abstract 05/31/2024 11:55 AM RADIO TIME SALESPERSON - 05/31/2024 1:27 PM RADIO TIME SALESPERSON [facility] Emergency Department [address] [place] [address] Martha Manuel MD Generalized abdominal pain (Primary Dx); Interstitial cystitis; Irritable bowel syndrome with both constipation and diarrhea; Endometriosis Discharge Disposition: Home or Self Care 05/31/2024 Telephone [facility] Gastroenterology [facility] [address] [facility] [address] [place] [address] Provider, Abstract Returning pt's call 05/29/2024 External Device Data [facility] Provider, Abstract 05/23/2024 External Device Data [facility] Provider, Abstract 05/23/2024 External Device Data [facility] Provider, Abstract from Last 3 Months Immunizations Immunization Administration Dates Next Due (ADACEL/BOOSTRIX)(10 YR UP) TDAP VACCINE, 0.5ML, IM 10/26/2023,02/17/2016 (GARDASIL 9)(9-45 YRS) HUMAN PAPILLOMAVIRUS VACCINE, TYPES 6, 11, 16, 18, 31, 33, 45, 52, 58, NONAVALENT (9VHPV), 2 OR 3 DOSE, IM 12/01/2016,02/17/2016 (INFANRIX)(6 WKS-6 YRS) DIPT HERIA, TETANUS TOXOIDS, AND ACCELLULAR PERTUSSIS VACCINE (DTAP), 0.5 ML IM 05/13/2005 (KINRIX/QUADRACEL)(4 - 6 YRS ) DIPHTHERIA, TETANUS TOXOIDS AND ACELLULAR PERTUSSIS VACCINE, POLIO, INACTIVATED (DTAP-IPV) (PF) IM 02/13/2010 (M-M-R II/PRIORIX)(12 MO UP) MEASLES, MUMPS AND RUBELLA VIRUS VACCINE, 0.5 ML IM/SUBCUT 02/13/2010,07/20/2005,05/13/2005 (MENVEO)(1 VIAL/2 VIAL)(10-5 5 YRS/2 MOS-55 YRS) MENINGOCOCCAL ACYW OLIGOSACCHARIDE CONJUGATE VACCINE, (PF) IM 02/20/2016 (PEDIARIX)(6 WKS-6 YRS) DIPT HERIA, TETANUS TOXOIDS, ACELLULAR PERTUSSIS, HEPATITIS B, AND INACTIVATED POLIOVIRUS VACCINE (UARH-SDUM-KIO), 0.5ML, IM 07/15/2005,2004,2004,03/02 (VARIVAX)(12 MOS UP)VARICELL A VIRUS VACCINE (PF) 0.5 ML, SUB CUT 02/13/2010,2005 HIB, Unspecified Formulation 07/20/2005, 2004,2004,03/02 Hepatitis A Vaccine, Unspeci fied Formulation 02/13/2010,2006 INFLUENZA VACCINE QUADRIVALE NT 6 MOS UP IM 02/06/2019 Influenza, Unspecified Formulation 06/10,07/06/2022,02/06/2019,01/30,07/20/2005,05/13/2005 Pneumococcal 7-valent conjug ate vaccine IM 07/20/2005,05/13/2005,2004,05/02,2004 Social History Tobacco Use Types Packs/Day Years Used Date Smoking Tobacco: Never Smokeless Tobacco: Never Tobacco Cessation:Counseling Given: Not Answered Alcohol Use Standard Drinks/Week Comments Never 0 (1 standard drink = 0.6 oz pur e alcohol) Feeling Safe Answer Date Recorded Are you in a relationship wi th someone who hurts you emotionally and/or physically? No 05/31/2024 Comments No Sex and Gender Information Value Date Recorded Sex Assigned at Female 05/31/2024 8:03 AM RADIO TIME SALESPERSON Legal Sex Female 1:02 PM CDT Gender Identity Not on file Sexual Orientation Straight 05/31/2024 8: 03 AM RADIO TIME SALESPERSON Last Filed Vital Signs Vital Sign Reading Time Taken Comments Blood Pressure 120/64 06/07/2024 10:52 AM RADIO TIME SALESPERSON Pulse 95 06/07/2024 10:52 AM RADIO TIME SALESPERSON Temperature 36.2 C (97.1 F) 06/07/2024 10:52 AM RADIO TIME SALESPERSON Respiratory Rate 18 05/31/2024 1:27 PM RADIO TIME SALESPERSON Oxygen Saturation 98% 06/07/2024 10:52 AM RADIO TIME SALESPERSON Inhaled Oxygen Concentration - - Weight 85.5 kg (188 lb 6.4 oz) 06/07/2024 10:52 AM RADIO TIME SALESPERSON Height 162.6 cm (5' 4 ) 06/07/2024 10:52 AM RADIO TIME SALESPERSON Body Mass Index 32.34 06/07/2024 10:52 AM RADIO TIME SALESPERSON Plan of Treatment Upcoming Encounters Date Type Department Care Team (Late st Contact Info) Description 08/24/2024 9:30 AM CDT Office Visit [facility] Minimally Invasive Gynecology [address] [place] [address] Boone Tanner MD [address] [place] [address] 09/04/2024 9:00 AM CDT Office Visit [facility] Primary Care [address] [address] Chaitanya Vickers PA-C [address] [place] [phone] Health Maintenance Due Date Last Done Comments CHLAMYDIA SCREENING (ANNUAL) 11-24 YEARS 01/12/2015 INFLUENZA VACCINE (#1) 2023 02/06/2019 Preventative Visit- Commercial 05/02/2024 DTAP/TDAP/TD VACCINES (8 - T d or Tdap) 10/25/2033 10/26/2023, 02/17/2016, 02/13/2010, Additional history exists HEPATITIS B VACCINES Completed 07/15/2005, 2004, 2004, Additional history exists HPV VACCINES Completed 12/01/2016, 02/17/2016 Procedures Procedure Name Priority Date/Time Associated Diagnosis Comments COMPREHENSIVE METABOLIC PANEL Routine 06/07/2024 11:30 AM RADIO TIME SALESPERSON Encounter for medical examination to establish care LIPID PANEL Routine 06/07/2024 11:30 AM RADIO TIME SALESPERSON Encounter for medical examination to establish care Screening for lipid disorders TSH REFLEXIVE Routine 06/07/2024 11:30 AM RADIO TIME SALESPERSON Encounter for medical examination to establish care Generalized anxiety disorder Screening for thyroid disorder HEMOGLOBIN A1C Routine 06/07/2024 11:30 AM RADIO TIME SALESPERSON Encounter for medical examination to establish care Screening for diabetes mellitus CBC WITH DIFFERENTIAL Routine 06/07/2024 11:30 AM RADIO TIME SALESPERSON Encounter for medical examination to establish care EKG 12-LEAD Stat 05/31/2024 12:47 PM RADIO TIME SALESPERSON POC GLUCOSE Stat 05/31/2024 12:09 PM RADIO TIME SALESPERSON URINALYSIS W/REFLEX MICROSCOPIC Stat 05/31/2024 8:51 AM RADIO TIME SALESPERSON COMPREHENSIVE METABOLIC PANEL Stat 05/31/2024 8:51 AM RADIO TIME SALESPERSON CBC WITH DIFFERENTIAL Stat 05/31/2024 8:51 AM RADIO TIME SALESPERSON from Last 3 Months Results * TSH REFLEXIVE (06/07/2024 11:30 AM RADIO TIME SALESPERSON) TSH 1.05 mIU/L [facility] Comment: Reference Range > or = 20 Years 0.40-4.50 Ranges First trimester 0.26-2.66 Second trimester 0.55-2.73 Third trimester 0.43-2.91 FASTING:YES FASTING: YES Test Performed at: [facility] [address] [address] Rasta Alfaro MD Blood 06/07/2024 11:3 0 AM RADIO TIME SALESPERSON 06/07/2024 11:33 AM RADIO TIME SALESPERSON us Chaitanya Vickers PA-C CHEMISTRY ORDERABL ES Final Result [facility] [phone] [facility] [address] [place] [address] * CBC WITH DIFFERENTIAL (06/07/2024 11:30 AM RADIO TIME SALESPERSON) Only the most recent of2 resultswithin the time period is included. WBC 7.5 3.8 - 10.8 Thousand/u L [facility] RBC 4.30 3.80 - 5.10 Million/uL [facility] HEMOGLOBIN 13.7 11.7 - 15.5 g/dL [facility] HEMATOCRIT 40.5 35.0 - 45.0 % [facility] MCV 94.2 80.0 - 100.0 fL [facility] MCH 31.9 27.0 - 33.0 pg [facility] MCHC 33.8 32.0 - 36.0 g/dL [facility] Comment: For adults, a slight decrease in the calculated MCHC value (in the range of 30 to 32 g/dL) is most likely not clinically significant; however, it should be interpreted with caution in correlation with other red cell parameters and the patient's clinical condition. RDW 12.1 11.0 - 15.0 % [facility] PLATELETS 315 140 - 400 Thousand/u L [facility] MPV 10.1 7.5 - 12.5 fL [facility] NEUTROPHIL ABSOLUTE 4,725 1,500 - 7,800 cells/uL [facility] LYMPHOCYTE ABSOLUTE 2,228 850 - 3,900 cells/uL [facility] MONOCYTE ABSOLUTE 458 200 - 950 cells/uL [facility] EOSINOPHIL ABSOLUTE 53 15 - 500 cells/uL [facility] BASOPHILS ABSOLUTE 38 0 - 200 cells/uL [facility] NEUTROPHIL 63 % [facility] LYMPHOCYTES 29.7 % [facility] MONOCYTE 6.1 % [facility] EOSINOPHILS 0.7 % [facility] BASOPHILS 0.5 % [facility] Comment: FASTING:YES FASTING: YES Test Performed at: [facility] [address] [facility] [place] [address] Rasta Alfaro MD Blood 06/07/2024 11:3 0 AM RADIO TIME SALESPERSON 06/07/2024 11:33 AM RADIO TIME SALESPERSON Chaitanya Vickers PA-C HEMATOLOGY ORDERAB LES Final Result Performing Organization Address [facility]/ZIP Co de Phone Number [facility] [phone] [facility] [address] [place] [address] * HEMOGLOBIN A1C (06/07/2024 11:30 AM RADIO TIME SALESPERSON) HEMOGLOBIN A1C 4.7 <5.7 % of total Hgb [facility] Comment: For the purpose of screening for the presence of diabetes: <5.7% Consistent with the absence of diabetes 5.7-6.4% Consistent with increased risk for diabetes (prediabetes) > or =6.5% Consistent with diabetes This assay result is consistent with a decreased risk of diabetes. Currently, no consensus exists regarding use of hemoglobin A1c for diagnosis of diabetes in children. According to [place] Diabetes Association (ADA) guidelines, hemoglobin A1c <7.0% represents optimal control in non- diabetic patients. Different metrics may apply to specific patient populations. Standards of Medical Care in Diabetes(ADA). ESTIMATED AVERAGE GLUCOSE (MG/DL) 88 mg/dL [facility] ESTIMATED AVERAGE GLUCOSE (MMOL/L) 4.9 mmol/L [facility] Comment: FASTING:YES FASTING: YES Test Performed at: [facility] [address] [facility] [place] [address] Rasta Alfaro MD Blood 06/07/2024 11:3 0 AM RADIO TIME SALESPERSON 06/07/2024 11:33 AM RADIO TIME SALESPERSON Chaitanya Vickers PA-C CHEMISTRY ORDERABL ES Final Result [facility] [phone] [facility] [address] [place] [address] * (ABNORMAL) LIPID PANEL (06/07/2024 11:30 AM RADIO TIME SALESPERSON) CHOLESTEROL 171 <200 mg/dL [facility] HDL 39(L) > OR = 50 mg/dL [facility] TRIGLYCERIDE 117 <150 mg/dL [facility] LDL CALCULATED 110(H) mg/dL (calc) [facility] Comment: Reference range: <100 Desirable range <100 mg/dL for primary prevention; <70 mg/dL for patients with CHD or diabetic patients with > or = 2 CHD risk factors. LDL-C is now calculated using the Cristy calculation, which is a validated novel method providing better accuracy than the Friedewald equation in the estimation of LDL-C. Harpreet SS et al. DANIEL. 2013;310(19): 7271-6813 (http://education.[employer]/faq/GXM224) CHOL/HDL RATIO 4.4 <5.0 (calc) [facility] NON-HDL CHOLESTEROL 132(H) <130 mg/dL (calc) [facility] Comment: For patients with diabetes plus 1 major ASCVD risk factor, treating to a non-HDL-C goal of <100 mg/dL (LDL-C of <70 mg/dL) is considered a therapeutic option. Test Performed at: [facility] [address] [place] [address] Rasta Alfaro MD Blood 06/07/2024 11:3 0 AM RADIO TIME SALESPERSON 06/07/2024 11:33 AM RADIO TIME SALESPERSON us Chaitanya Vickers PA-C CHEMISTRY ORDERABL ES Final Result [facility] [phone] [facility] [address] * COMPREHENSIVE METABOLIC PANEL (06/07/2024 11:30 AM RADIO TIME SALESPERSON) Only the most recent of2 resultswithin the time period is included. GLUCOSE 87 65 - 99 mg/dL [facility] Comment: Fasting reference interval BUN 8 7 - 25 mg/dL [facility] CREATININE 0.61 0.50 - 0.96 mg/dL [facility] GFR 131 > OR = 60 mL/min/1. 73m2 [facility] BUN/CREAT RATIO SEE NOTE: 6 - 22 (calc) [facility] Comment: Not Reported: BUN and Creatinine are within reference range. SODIUM 140 135 - 146 mmol/L [facility] POTASSIUM 4.3 3.5 - 5.3 mmol/L [facility] CHLORIDE 109 98 - 110 mmol/L [facility] CO2 24 20 - 32 mmol/L [facility] CALCIUM 9.4 8.6 - 10.2 mg/dL [facility] TOTAL PROTEIN 7.1 6.1 - 8.1 g/dL [facility] ALBUMIN 4.7 3.6 - 5.1 g/dL [facility] GLOBULIN 2.4 1.9 - 3.7 g/dL (calc) [facility] ALBUMIN/GLOBULIN RATIO 2.0 1.0 - 2.5 (calc) [facility] BILIRUBIN TOTAL 0.6 0.2 - 1.2 mg/dL [facility] ALKALINE PHOSPHATASE 69 31 - 125 U/L [facility] AST 12 10 - 30 U/L [facility] ALT 9 6 - 29 U/L [facility] Comment: FASTING:YES FASTING: YES Test Performed at: [facility] [address] [place] [address] Rasta Alfaro MD Blood 06/07/2024 11:3 0 AM RADIO TIME SALESPERSON 06/07/2024 11:33 AM RADIO TIME SALESPERSON us Chaitanya Vickers PA-C CHEMISTRY ORDERABL ES Final Result [facility] [phone] [facility] [address] [address] * EKG 12-LEAD (05/31/2024 12:47 PM RADIO TIME SALESPERSON) 05/31/2024 12:4 7 PM RADIO TIME SALESPERSON Narrative INTERFACE SYSTEM - 05/31/2024 1:58 PM RADIO TIME SALESPERSON [facility] [address] [place] [address] Test Date: 2024-05-31 Pat Name: [facility] Department: 40 Room: 30 30 Gender: Female 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 : 2005 Requested By: MARTHA MANUEL Order Number: [id number] Reading MD: Henrry Pablo Measurements Intervals [place] Rate: 93 P: 17 RI: 161 QRS: 10 QRSD: 81 T: 53 QT: 352 QTc: 438 Interpretive Statements Sinus rhythm Electronically Signed On 05-31-2024 13:58:32 RADIO TIME SALESPERSON by Henrry Pablo Procedure Note Henrry Pablo MD - 05/31/2024 [facility] [address] [place] [address] Test Date: 2024-05-31 Pat Name: [facility] Department: 40 Room: 30 30 Gender: Female Road Mechanic: noydaniel : 2005 Requested By: MARTHA MANUEL Order Number: [id number] Reading MD: Henrry Pablo Measurements Intervals [place] Rate: 93 P: 17 RI: 161 QRS: 10 QRSD: 81 T: 53 QT: 352 QTc: 438 Interpretive Statements Sinus rhythm Electronically Signed On 05-31-2024 13:58:32 RADIO TIME SALESPERSON by Henrry Pablo us Martha Manuel MD ECG ORDERABLES Final Result INTERFACE SYSTEM Refer to clinic/hospital department * POC GLUCOSE (05/31/2024 12:09 PM RADIO TIME SALESPERSON) GLUCOSE POC 94 74 - 99 mg/dL 05/31/2024 12:09 PM RADIO TIME SALESPERSON [facility] SPECIMEN SOURCE, GLUCOSE POC Whole Blood 05/31/2024 12:09 PM RADIO TIME SALESPERSON [facility] - [facility] COMMENT, GLU POC Notified RN/MD 05/31/2024 12:09 PM [email or web address] Blood, whole 05/31/2024 12:0 9 PM RADIO TIME SALESPERSON 05/31/2024 12:17 PM RADIO TIME SALESPERSON us Interface Provider Poct POINT OF CARE TESTING Fi nal Result [facility] [employer] [facility] CLIA# [id number] [address] [place] [address] * (ABNORMAL) URINALYSIS WITH REFLEX MICROSCOPIC (05/31/2024 8:51 AM RADIO TIME SALESPERSON) COLOR UA Yellow Pale to Dark Yellow 05/31/2024 9:35 AM [facility] [employer] [facility] CLARITY UA Slightly Cloudy(A) Clear 05/31/2024 9:35 AM [facility] [employer] SERVICES [facility] SPECIFIC GRAVITY UA 1.027 1.003 - 1.035 05/31/2024 9:35 AM [facility] [employer] SERVICES [facility] PH UA 6.0 5.0 - 8.0 05/31/2024 9:35 AM [facility] [employer] [facility] LEUKOCYTE ESTERASE UA Negative Negative 05/31/2024 9:35 AM [facility] [employer] [facility] NITRITE UA Negative Negative 05/31/2024 9:35 AM [facility] [employer] [facility] PROTEIN UA 1+(A) Negative 05/31/2024 9:35 AM [facility] [employer] SERVICES [facility] GLUCOSE UA Negative Negative 05/31/2024 9:35 AM [facility] [employer] SERVICES [facility] KETONES UA Negative Negative 05/31/2024 9:35 AM [facility] [employer] SERVICES [facility] UROBILINOGEN UA Normal <2.0 mg/dL 9:35 AM [facility] [employer] LABORATORY SERVICES [facility] BILIRUBIN UA Negative Negative 05/31/2024 9:35 AM [facility] [employer] SERVICES [facility] BLOOD UA Negative Negative 05/31/2024 9:35 AM RADIO TIME SALESPERSON [employer] LABORATORY SERVICES [facility] WBC UA 0-2 0 - 2 /hpf 05/31/2024 9:35 AM RADIO TIME SALESPERSON [employer] LABORATORY SERVICES - . [facility] RBC UA 0-2 0 - 2 /hpf 05/31/2024 9:35 AM RADIO TIME SALESPERSON [employer] [facility]ORATORY SERVICES - . [facility] BACTERIA UA 2+(A) Negative /hpf 05/31/2024 9:35 AM RADIO TIME SALESPERSON [facility] EPITHELIAL CELLS, URINE 6-10(A) 0 - 5 /hpf 05/31/2024 9:35 AM RADIO TIME SALESPERSON [facility] - [facility] Urine URINE SPECIMEN OBTAINED BY CLEAN CATCH PROCEDURE / Unknown Collection / Unknown 05/31/2024 8:51 AM RADIO TIME SALESPERSON 05/31/2024 9:07 AM RADIO TIME SALESPERSON Martha Manuel MD URINE ORDERABLES Final Result [facility] [employer] [facility]# [id number] [address] [facility] [place] [address] from Last 3 Months Insurance OUT OF STATE [facility] BLUE ACCESS/TRUE BLUE PPO Care Teams Employee Training Specialist Relationship Specialty Start Date End Date Kody Francisco MD [address] [address] PCP - General Internal Medicine 06/07/24
--- OUTSIDE RECORDS SUMMARY | 2024-06-18 | XMS_ITS ---
Author Organization [facility]ly [facility] Address [address] [place] [address] Care Team Providers Care Tong Setter Name Role Phone Amirah Palacios Primary Care Provider [phone] Allergies Allergen (clinical drug ingredient) Drug/Non Drug Allergy documented on EMR Reaction Allergy Type Onset Date Status No Known Drug Allergy Unknown Drug Allergy Active REASON FOR VISIT 1 Month Psych F/U & Med Refill Medications Medication SIG (Take, Route, Frequency, Duration) Notes Start Date End Date Status Amphetamine-Dextroamphet ER 25 MG 1 capsule in the morning Orally Once a day for 30 days 09/28/2023 Active Vraylar 4.5 MG 1 capsule Orally Onc e a day for 30 days Active Escitalopram Oxalate 20 MG 1 tablet Oral ly Once a day for 30 days Active Social History Sex Assigned At : Social History Observation Description Sex Assigned At Female Encounters Encounter Location Date Provider Diagnosis [address] [place] [address] 09/28/2023 Amirah Palacios Bipolar 2 disorder F31.81 [...] 09/28/2023 Bipolar 2 disorder (ICD-10 - F31.81) 09/28/2023 ADHD (attention deficit hyperactivity disorder) (ICD-10 - F90.9) 09/28/2023 JASON (generalized anxiety disorder) (ICD-10 - F41.1) 09/28/2023 Body mass index (BMI) pediatric, 85th percentile to less than 95th percentile for age (ICD-10 - Z68.53) 09/28/2023 Nutritional counseling (ICD-10 - Z71.3) 09/28/2023 Exercise counseling (ICD-10 - Z71.82) 09/28/2023 Other May self-administer medications or be administered own oral medications per [facility] protocols. Provided informed consent with understanding of side effects, adverse effects, risks and benefits as well as alternative treatments as previously discussed and with the above recommended medications & other aspects of the treatment program. Agrees to return sooner if symptoms worsen or suicidal or homicidal ideations occur. Plan Of Treatment Medication Medication Name Sig Start Date Stop Date Notes Amphetamine-Dextroamphet ER 25 MG 1 capsule in the morning Orally Once a day for 30 days 09/28/2023 Vraylar 4.5 MG 1 capsule Orally Onc e a day for 30 days Escitalopram Oxalate 20 MG 1 tablet Oral ly Once a day for 30 days Treatment Notes Assessment Notes Other May self-administer medications or be administered own oral medications per [facility] protocols. 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 Subjective: * Chief Complaints: * 1 Month Psych F/U & Med Refill * HPI: D epression Screening: PHQ-9 L ittle interest or pleasure in doing things?Several days F eeling down, depressed, or hopeless S everal days T rouble falling or staying asleep, or sleeping too much N ot at all F eeling tired or having little energy S everal days P oor appetite or overeating S everal days F eeling bad about yourself or that you are a failure, or have let yourself or your family down N ot at all T rouble concentrating on things, such as reading the newspaper or watching television S ever days M oving or speaking so slowly that other people could have noticed; or the opposite, being so fidgety or restless that you have been moving around a lot more than usual N ot at all T houghts that you would be better off or of hurting yourself in some way N ot at all T otal Score 5 I nterpretation M ild Depression S creening: Nixon Suicide Severity Rating Scale (LF) D o [...] o I nterpretation: L ow Risk P sych F/U: 18-year-old female client presents for follow-up psychiatric and medication management appointment. Client is being followed for the management of bipolar 2 disorder, ADHD, and JASON. Client is amenable to appointment today. Client reports that she recently moved to [place] for a brief time to help her boyfriend help with some of his family issues, and then moved back, which she believes may have affected her mental health. She reports that her anxiety has been worse lately (-10/09) and wonders if her Lexapro needs adjustment. She also mentions that her focus has been decreasing and thinks her Adderall might need a higher dose. She reports that her depression has not been too bad (-07/09). Denies anger/irritability. She also mentions that she was very thapa, upset, and had no motivation when she was in [place], but once she came back home, everything went back to normal. She reports that her sleep is good, and she has no nightmares. Her appetite is not bad, although she was binge eating when she was in [place]. She denies any thoughts of wanting to hurt herself or anyone else. No reports or observations of psychotic symptoms/behaviors, manic behaviors, obsessive/compulsive behaviors or trauma/PTSD. Denies substance use. Denies any medical concerns at this time. Client is not currently engaged in individual therapy services. . * ROS: P sych ROS: Constitutional A ll systems negative unless indicated otherwise. , Denies past suicide attempt, Denies SI/HI/AH/VH, Reports depression/anxiety. ? * Medical History: * Surgical History: n ose 2004 * Hospitalization/Major Diagno stic Procedure: D enies Past Hospitalization * Family History: F ather: alive. M other: alive. 1 sister(s) - healthy. . 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[facility] [employer] * Medications: T akingVraylar 4.5 MG Capsule 1 capsule Orally Once a day Escitalopram Oxalate 10 MG Tablet 1 tablet Orally Once a day Amphetamine-Dextroamphet ER 20 MG Capsule Extended Release 24 Hour 1 capsule in the morning Orally Once a day Medication List reviewed and reconciled with the patientTaking Vraylar 4.5 MG Capsule 1 capsule Orally Once a day Taking Escitalopram Oxalate 10 MG Tablet 1 tablet Orally Once a day Taking Amphetamine-Dextroamphet ER 20 MG Capsule Extended Release 24 Hour 1 capsule in the morning Orally Once a day Medication List reviewed and reconciled with the patient * Allergies: N o Known Drug Allergyno[Allergies Verified] Objective: * Vitals: Unable to obtain vital signs due to telehealth visit . * Examination: P sychiatry: APPEARANCE: a ppropriately dressed/groomed, appears stated age. ATTENTION: g ood. ORIENTATION: p amber, david and time. ATTITUDE: c ooperative, pleasant. AFFECT: a ppropriate, full range, congruent. MOOD: good - better since moving back from [place] .? SPEECH: c lear, normal/R/V/R, talkative. PSYCHOMOTOR ACTIVITY: [...] 2. A DHD (attention deficit hyperactivity disorder) Increase Amphetamine-Dextroamphet ER Capsule Extended Release 24 Hour, 25 MG, 1 capsule in the morning, Orally, Once a day, 30 days, 30 Capsule, Refills 0. 3. G AD (generalized anxiety disorder) Increase Escitalopram Oxalate Tablet, 20 MG, 1 tablet Orally Once a day, 30 days, 30, Refills 0.? 4. O thers Notes: May self-administer medications or be administered own oral medications per [facility] protocols. Provided informed consent with understanding of side effects, adverse effects, risks and benefits as well as alternative treatments as previously discussed and with the above recommended medications & other aspects of the treatment program. Agrees to return sooner if symptoms worsen or suicidal or homicidal ideations occur. 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 History and Physical Notes * HPI (History of Present Illness) Category Sub-Category Detail Notes Category Not es Depression Screening PHQ-9 Little inte rest or pleasure in doing things: Several days Feeling down, depressed, or hopeless: Se veral days Trouble falling or staying asleep, or sl eeping too much: Not at all Feeling tired or having little energy: S everal days Poor appetite or overeating: Several day s Feeling bad about yourself o r that you are a failure, or have let yourself or your family down: Not at all Trouble concentrating on thi ngs, such as reading the newspaper or watching television: Several days Moving or speaking so slowly that other people could have noticed; or the opposite, being so fidgety or restless that you have been moving around a lot more than usual: Not at all Thoughts that you would be b oliver off or of hurting yourself in some way: Not at all Total Score: 5 Interpretation: Mild Depression Psych F/U 18-year-old female client presents for follow-up psychiatric and medication management appointment. Client is being followed for the management of bipolar 2 disorder, ADHD, and JASON. Client is amenable to appointment today. Client reports that she recently moved to [place] for a brief time to help her boyfriend help with some of his family issues, and then moved back, which she believes may have affected her mental health. She reports that her anxiety has been worse lately (-10/09) and wonders if her Lexapro needs adjustment. She also mentions that her focus has been decreasing and thinks her Adderall might need a higher dose. She reports that her depression has not been too bad (2-07/09). Denies anger/irritability. She also mentions that she was very thapa, upset, and had no motivation when she was in [place], but once she came back home, everything went back to normal. She reports that her sleep is good, and she has no nightmares. Her appetite is not bad, although she was binge eating when she was in [place]. She denies any thoughts of wanting to hurt herself or anyone else. No reports or observations of psychotic symptoms/behaviors, manic behaviors, obsessive/compulsive behaviors or trauma/PTSD. Denies substance use. Denies any medical concerns at this time. Client is not currently engaged in individual therapy services. Screening Nixon Suicide Severity Rating Scale (LF) Do you want to [...] end your life?: No Interpretation:: Low Risk Examination Category Sub-Category Detail Notes Category Not es Psychiatry APPEARANCE: appropriately dr dunn/gt, appears stated age ATTITUDE: cooperative, pleasan t PSYCHOMOTOR ACTIVITY: within normal rang e ABNORMAL BODY MOVEMENTS: none ATTENTION: good ORIENTATION: person, place and ti me AFFECT: appropriate, full ra nge, congruent MOOD: good - better since moving back from [place] SPEECH: clear, normal/R/V/R, talkative INSIGHT: fair JUDGEMENT: fair THOUGHT PROCESS: linear, goal-directe d THOUGHT CONTENT: unremarkable PERCEPTUAL DISORDERS: no perceptual diso rder noted CURRENT SUICIDALITY: denies CURRENT HOMICIDALITY: none INTELLIGENCE (estimate): average
--- OUTSIDE RECORDS SUMMARY | 2024-06-18 | XMS_ITS | Patient Health Summary ---
Author Organization [facility] Address [address] [place] [address] Care Team Providers Care Flotation Tender Helper Name Role Phone Karla Galan APRN-PRODUCTION CLERK Primary Care Provider + Note from [facility],non-owned Affiliates and Associated Physician Practices is amultiple site organization consisting of ambulatory clinics and hospital sitesin [place], [place], [place] and [place]. This disclosure is being madepursuant to the Care Everywhere program and may not contain all information available regarding this patient. Last updated 18.[facility] Allergies No known active allergies Medications * Be aware that medications may not be up to date on this document. Alwaysverify current medications with the patient. * Norethin Hawk-Eth Estrad-FE (TAYTULLA) 1-20 MG-MCG(24) CAPS Take by mouth at bedtime * ALBUTEROL IN Inhale by mouth every 4 hours as needed * acetaminophen (TYLENOL) 325 MG tablet(Started 11/28/2018) Take 2 tablets by mouth every 6 hours as needed for Fever or Pain Maximum allowable Acetaminophen amount = 4 Grams (4000 mg) / 24 hours. * ibuprofen (MOTRIN) 200 MG tablet(Started 11/28/2018) Take 2 tablets by mouth every 6 hours as needed for Pain * medroxyPROGESTERone (DEPO-PROVERA) 150 MG/ML vial medroxyprogesterone 150 mg/mL intramuscular suspension * polyethylene glycol 3350 (MIRALAX) 17 GM/SCOOP powder(Started 01/09/2020) Take 17 g by mouth once daily 7 refills by 01/08/2021 Active Problems Problem Noted Date Diagnosed Date Dysuria 01/09/2020 Chronic idiopathic constipation 01/09/2020 Encounter for surgical aftcr following surgery on the sys 12/18/2018 Nevus 05/29/2014 Social History Tobacco Use Types Packs/Day Years Used Date Smoking Tobacco: Never Smokeless Tobacco: Never Tobacco Cessation:Counseling Given: No Alcohol Use Standard Drinks/Week Comments No 0 (1 standard drink = 0.6 oz pur e alcohol) Sex and Gender Information Value Date Recorded Sex Assigned at Not on file Gender Identity Not on file Sexual Orientation Not on file Last Filed Vital Signs Vital Sign Reading Time Taken Comments Blood Pressure 108/61 06/04/2024 2:45 AM SMELLER Pulse 78 06/04/2024 2:45 AM SMELLER Temperature 36.6 C (97.8 F) 06/04/2024 2:45 AM SMELLER Respiratory Rate 20 06/04/2024 2:45 AM SMELLER Oxygen Saturation 99% 06/04/2024 2:45 AM SMELLER Inhaled Oxygen Concentration - - Weight 72.9 kg (160 lb 11.5 oz) 01/09/2020 2:10 PM CDT Height 162.5 cm (5' 3.98 ) 01/09/2020 2:10 PM CD T Body Mass Index 27.61 01/09/2020 2:10 PM CDT Procedures * CARDIAC EKG ORDER(Performed 06/05/2024) * SARS-COV-2 (COVID-19) FLU A/B RSV PCR RAPID(Performed 06/04/2024) * HCG BETA BLOOD QUANTITATIVE(Performed 06/03/2024) * TROPONIN-I HIGH SENSITIVE(Performed 06/03/2024) * COMPREHENSIVE METABOLIC PANEL(Performed 06/03/2024) * CBC W AUTO DIFFERENTIAL(Performed 06/03/2024) * EKG 12-LEAD(Performed 06/03/2024) Performed for Syncope and collapse * URINALYSIS REFLEX MICROSCOPIC REFLEX CULTURE(Performed 06/03/2024) * XR CHEST 2VW(Performed 06/03/2024) Performed for Syncope and collapse * CALCIUM/CREAT RATIO URINE RANDOM PANEL(Performed 01/09/2020) Performed for Dysuria * CULTURE URINE(Performed 01/09/2020) Performed for Dysuria * URINALYSIS W/MICROSCOPIC NO CULTURE(Performed 01/09/2020) Performed for Dysuria * US KIDNEYS W BLADDER(Performed 01/09/2020) Performed for Recurrent UTI * PATHOLOGY TISSUE EXAM (STL)(Performed 11/28/2018) Performed for Bladder disease, Urinary tract infection without hematuria, site unspecified * CULTURE URINE(Performed 11/28/2018) Performed for Bladder mass * ENDOTRACHEAL TUBE NOTE(Performed 11/28/2018) * CYSTOSCOPY WITH BIOPSY(Performed 11/28/2018) Performed for Bladder disease, Urinary tract infection without hematuria, site unspecified * HCG URINE QUALITATIVE - POCT (IP) INTERFACED(Performed 11/28/2018) * HCG URINE QUAL POCT NOTIFICATION(Performed 11/28/2018) Performed for Preop examination * CALCIUM/CREAT RATIO URINE RANDOM PANEL(Performed 10/19/2018) Performed for Recurrent UTI * URINALYSIS W/MICROSCOPIC NO CULTURE(Performed 10/19/2018) Performed for Recurrent UTI * CULTURE URINE(Performed 10/19/2018) Performed for Recurrent UTI * US KIDNEYS W BLADDER(Performed 10/19/2018) Performed for Urinary tract infection without hematuria, site unspecified * URINE MICROSCOPIC ONLY(Performed 08/31/2016) Performed for History of recurrent UTIs * CALCIUM/CREAT RATIO URINE RANDOM PANEL(Performed 08/31/2016) Performed for History of recurrent UTIs * URINALYSIS REFLEX TO MICROSCOPIC NO CULTURE(Performed 08/31/2016) Performed for History of recurrent UTIs * CULTURE URINE(Performed 08/31/2016) Performed for History of recurrent UTIs * US KIDNEYS W BLADDER(Performed 08/31/2016) Performed for Acute cystitis without hematuria * LAB RESULTS ORDER(Performed 07/23/2014) * DERMATOPATHOLOGY(Performed 05/29/2014) * DERMATOPATHOLOGY(Performed 05/29/2014) * BORDETELLA PCR(Performed 11/04/2013) * AUDIOLOGY/TYMPANOMETRY ORDER(Performed 04/01/2010) Results * CARDIAC EKG ORDER (06/05/2024 8:38 PM SMELLER) Narrative 06/05/2024 8:38 PM SMELLER Ordered by an unspecified provider. Scanned Document CARDIAC SERVICES ORD ERABLES * SARS-COV-2 (COVID-19) FLU A/B RSV PCR RAPID (06/04/2024 3:43 AM SMELLER) COVID-19 PCR Not detected Not detected 06/04/19 4:26 AM SMELLER [facility] Influenza A PCR Not detected Not detected 06/04/2024 4:26 AM SMELLER [facility] Influenza B PCR Not detected Not detected 06/04/2024 4:26 AM [facility] RSV PCR Not detected Not detected 06/04/2024 4:26 AM [facility] Microbiology SPECIMEN FROM NASOPHARYNGEAL STRUCTURE / Unknown Collection / Unknown 06/04/2024 3:43 AM SMELLER 06/04/2024 3:48 AM SMELLER Narrative [facility] - 06/04/2024 4:26 AM SMELLER This nucleic acid amplification assay has been authorized by the Food and Drug administration (FDA) under an Emergency Use Authorization (EUA). This test is only authorized for the duration of time the declaration that circumstances exist justifying the authorization of emergency use of in vitro diagnostic tests for detection of SARS-CoV-2 virus and/or diagnosis of COVID-19 infection under section 564(b)(1) of the Act, 21 U.S.C 360bbb-3 (b)(1), unless the authorization is terminated or revoked sooner. Fact Sheets for this EUA assay are available upon request. Damion Osullivan MD LAB - MICROBIO LOGY ORDERABLES [facility] [address] [place] [address] * TROPONIN-I HIGH SENSITIVE (06/03/2024 9:50 PM SMELLER) Troponin I High Sensitive <3 <=14 ng/L 06/03/2024 10:20 PM SMELLER [facility] Blood BLOOD SPECIMEN / Unknown Venipuncture / Unknown 06/03/2024 9:50 PM SMELLER 06/03/2024 9:56 PM SMELLER Fannie FAUST LAB - CHEMISTRY SHAN JOYCE [facility] [address] [place] [address] * (ABNORMAL) CBC W AUTO DIFFERENTIAL (06/03/2024 9:50 PM SMELLER) [facility] WBC 6.5 4.0 - 10.7 x10E9/L 06/03/2024 9:59 PM SMELLER [facility] RBC Count 4.15 3.90 - 5.20 x10E12/L 06/03/2024 9:59 PM [facility] Hemoglobin 12.8 11.9 - 15.8 g/dL 06/03/2024 9:59 PM [facility] Hematocrit 37.7 34.8 - 46.1 % 06/03/2024 9:59 PM [facility] MCV 90.8 80.0 - 98.0 fL 06/03/2024 9:59 PM [facility] MCH 30.8 26.7 - 33.6 pg 06/03/2024 9:59 PM [facility] MCHC 34.0 31.7 - 36.3 g/dL 06/03/2024 9:59 PM [facility] RDW-CV 12.2 11.3 - 14.8 % 06/03/2024 9:59 PM [facility] Platelet Count 296 150 - 420 x10E9/L 06/03/2024 9:59 PM [facility] MPV 9.1 7.8 - 11.4 fL 06/03/2024 9:59 PM [facility] Neutrophil % 41.4 41.0 - 74.0 % 06/03/2024 9:59 PM [facility] Lymphocyte % 47.7(H) 17.0 - 47.0 % 06/03/2024 9:59 PM [facility] Monocyte % 8.0 3.0 - 11.0 % 06/03/2024 9:59 PM [facility] Eosinophil % 1.8 0.0 - 7.0 % 06/03/2024 9:59 PM [facility] Basophil % 0.9 0.0 - 1.6 % 06/03/2024 9:59 PM [facility] Immature Granulocytes % 0.2 0.0 - 1.0 % 06/03/2024 9:59 PM [facility] Neutrophil Absolute 2.71 1.60 - 7.50 x10E9/L 06/03/2024 9:59 PM [facility] Lymphocyte Absolute 3.12 1.00 - 4.40 x10E9/L 06/03/2024 9:59 PM [facility] Monocyte Absolute 0.52 0.15 - 1.00 x10E9/L 06/03/2024 9:59 PM [facility] Eosinophil Absolute 0.12 0.00 - 0.60 x10E9/L 06/03/2024 9:59 PM [facility] Basophil Absolute 0.06 0.00 - 0.13 x10E9/L 06/03/2024 9:59 PM [facility] Blood BLOOD SPECIMEN / Unknown Venipuncture / Unknown 06/03/2024 9:50 PM SMELLER 06/03/2024 9:56 PM SMELLER Fannie FAUST LAB - HEMATOLOGY ORD ERABLES [facility] [address] [place] [address] * (ABNORMAL) COMPREHENSIVE METABOLIC PANEL (06/03/2024 9:50 PM SMELLER) [facility] Glucose 124(H) 70 - 99 mg/dL 06/03/2024 10:12 PM [facility] Sodium 137 136 - 145 mmol/L 06/03/2024 10:12 PM [facility] Potassium 3.8 3.5 - 5.1 mmol/L 06/03/2024 10:12 PM [facility] Chloride 112(H) 98 - 107 mmol/L 06/03/2024 10:12 PM [facility] CO2 18(L) 22 - 29 mmol/L 06/03/2024 10:12 PM [facility] Calcium 8.8 8.4 - 10.4 mg/dL 06/03/2024 10:12 PM [facility] Anion Gap 7 6 - 16 mmol/L 06/03/2024 10:12 PM [facility] BUN 12 5.3 - 18.7 mg/dL 06/03/2024 10:12 PM [facility] Creatinine 0.68 0.57 - 1.11 mg/dL 06/03/2024 10:12 PM [facility] Alkaline Phosphatase 65 40 - 150 U/L 06/03/2024 10:12 PM [facility] ALT 9 0 - 55 U/L 06/03/2024 10:12 PM [facility] AST 12 5 - 34 U/L 06/03/2024 10:12 PM [facility] Protein Total 7.1 6.4 - 8.3 gm/dL 06/03/2024 10:12 PM [facility] Albumin 4.1 3.4 - 5.0 gm/dL 06/03/2024 10:12 PM [facility] Bilirubin Total 0.5 0.2 - 1.2 mg/dL 06/03/2024 10:12 PM [facility] eGFR by CKD-EPI >90 >=90 mL/min/1.7 3 m2 06/03/2024 10:12 PM [facility] Blood BLOOD SPECIMEN / Unknown Venipuncture / Unknown 06/03/2024 9:50 PM SMELLER 06/03/2024 9:56 PM SMELLER Fannie FAUST LAB - CHEMISTRY SHAN JOYCE [facility] Organization Address City/State/[facility] Co de Phone Number [facility] [address] [place] [address] * HCG BETA BLOOD QUANTITATIVE (06/03/2024 9:50 PM SMELLER) Pathologist [facility] [place] hCG Quantitative <2.42 mIU/mL 06/03/19 10:16 PM SMELLER [facility] Blood BLOOD SPECIMEN / Unknown Venipuncture / Unknown 06/03/2024 9:50 PM SMELLER 06/03/2024 9:56 PM SMELLER Narrative [facility] - 06/03/2024 10:16 PM SMELLER hCG Reference Range, mIU/mL: Non Females 0-6.0 Perimenopausal Females ages 41-55* 0-7.7 Postmenopausal Females age >55* 0-14 Females, Weeks after Last Menstrual Period 0.2-1 week 5-50 1 - 2 weeks 50-500 2 - 3 weeks 100-5000 3 - 4 weeks 500-10,000 4 - 5 weeks 1000-50,000 5 - 6 weeks 10,000-100,000 6 - 8 weeks 15,000-200,000 2 - 3 months 10,000-100,000 Trophoblastic Disease >100,000 *In higher than expected hCG in females > age 40, a serum FSH >20 IU/L makes unlikely. Fannie FAUST LAB - CHEMISTRY ORDE MARIA DEL CARMEN Performing Organization Address [facility] Co de Phone Number [facility] [address] [place] [address] * EKG 12-LEAD (06/03/2024 9:45 PM SMELLER) Ventricular Rate 86 BPM [facility] Atrial Rate 86 BPM [facility] P-R Interval 154 ms [facility] QRS Duration ms 76 ms [facility] Q-T Interval ms 344 ms [facility] QTC Calculation (Bezet) 411 ms [facility] Calculated P Center 58 degrees [facility] Calculated R Center 83 degrees [facility] Calculated T Center 63 degrees [facility] Interpretation EKG NORMAL SINUS RHYTHM NORMAL ECG NO PREVIOUS ECGS AVAILABLE Confirmed by MD North, Rui ([id number]) on 06/04/2024 7:36:29 AM [facility] MUSE 06/03/2024 9:45 PM SMELLER 06/04/2024 7:36 AM SMELLER Fannie FAUST ECG ORDERABLES Performing Organization Address [facility] Co de Phone Number [facility] * URINALYSIS REFLEX MICROSCOPIC REFLEX CULTURE (06/03/2024 9:14 PM SMELLER) Color UA Yellow Yellow, Straw 06/03/2024 9:22 PM SMELLER [facility] Clarity UA Clear Clear 06/03/2024 9:22 PM SMELLER [facility] Glucose UA Normal Normal 06/03/2024 9:22 PM SMELLER [facility] Bilirubin UA Negative Negative 06/03/2024 9:22 PM SMELLER [facility] Ketone UA Negative Negative 06/03/2024 9:22 PM [facility] Specific [place] UA 1.023 1.005 - 1.030 06/03/2024 9:22 PM [facility] Blood UA Negative Negative 06/03/2024 9:22 PM [facility] pH UA 5.5 5.0 - 9.0 pH 06/03/2024 9:22 PM [facility] Protein UA Negative Negative 06/03/2024 9:22 PM [facility] Urobilinogen UA Normal Normal mg/dL 025 9:22 PM [facility] Nitrite UA Negative Negative 06/03/2024 9:22 PM [facility] Leukocyte UA Negative Negative 06/03/2024 9:22 PM [facility] Urine URINE SPECIMEN OBTAINED BY CLEAN CATCH PROCEDURE / Unknown Collection / Unknown 06/03/2024 9:14 PM SMELLER 06/03/2024 9:19 PM SMELLER Narrative [facility] - 06/03/2024 9:22 PM SMELLER Fannie FAUST LAB - URINALYSIS ORD ERABLES Performing Organization Address City/State/[facility] Co de Phone Number [facility] [address] [place], [place] [id number] * XR CHEST 2VW (06/03/2024 9:09 PM SMELLER) Anatomical Region Laterality Modality Chest Radiographic Peg ging 06/04/2024 10:0 1 AM SMELLER Impressions 06/04/2024 10:01 AM SMELLER IMPRESSION: No active cardiac or pulmonary disease. > Interpreting Provider: Sheldon Curry MD on 06/04/2024 10:01 AM Narrative 06/04/2024 10:01 AM SMELLER PROCEDURE: XR CHEST 2VW DATE/TIME OF EXAM: 06/03/2024 9:09 PM CLINICAL INFORMATION: None relevant/not provided if blank. Indication: R55: Syncope and collapse Additional History: COMPARISON: None. FINDINGS: PA and lateral views of the chest are obtained and demonstrates the lungs to be well expanded and appear clear. Heart, tyler, mediastinum, pleural regions and pulmonary vascular lung markings appeared within normal limits. Procedure Note Sheldon Curry MD - 06/04/2024 PROCEDURE: XR CHEST 2VW DATE/TIME OF EXAM: 06/03/2024 9:09 PM CLINICAL INFORMATION: None relevant/not provided if blank. Indication: R55: Syncope and collapse Additional History: COMPARISON: None. FINDINGS: PA and lateral views of the chest are obtained and demonstrates thelungs to be well expanded and appear clear. Heart, tyler, mediastinum, pleural regions and pulmonary vascular lung markings appeared within normallimits. IMPRESSION: No active cardiac or pulmonary disease. > Interpreting Provider: Sheldon Curry MD on 06/04/2024 10:01 AM Fannie FAUST DIAGNOSTIC IMAGING O RDERABLES * CULTURE URINE (01/09/2020 4:09 PM CDT) Only the most recent of4 resultswithin the time period is included. Culture Urine No growth (<100 CFU/mL) KAN 01/11/2020 8:28 AM CDT [facility] Urine URINE SPECIMEN OBTAINED BY CLEAN CATCH PROCEDURE / Unknown Collection / Unknown 01/09/2020 4:09 PM CDT 01/09/2020 4:12 PM CDT Yenifer Slade PA-C LAB - MICROBIOLOGY ORDERABLES [facility] [address] [place] [address], [facility] [phone] * CALCIUM/CREAT RATIO URINE RANDOM PANEL (01/09/2020 4:09 PM CDT) Only the most recent of3 resultswithin the time period is included. Calcium Urine 25.24 mg/dL 01/09/2020 5:37 PM CDT [facility] Creatinine Urine 198.05 mg/dL 01/09/2020 5:37 PM CDT [facility] Calcium/Creatin ine Ratio Urine 0.13 01/09/2020 5:37 PM CDT [facility] Urine URINE SPECIMEN OBTAINED BY CLEAN CATCH PROCEDURE / Unknown Collection / Unknown 01/09/2020 4:09 PM CDT 01/09/2020 4:12 PM CDT Narrative [facility] - 01/09/2020 5:37 PM CDT Normal <0.16 Borderline 0.16-0.20 Abnormal >0.20 Yenifer Slade PA-C LAB - URINE DIRECTOR ALUMNI RELATIONS RY ORDERABLES [facility] [place] [address] * (ABNORMAL) URINALYSIS W/MICROSCOPIC NO CULTURE (01/09/2020 4:08 PM CDT) Only the most recent of2 resultswithin the time period is included. Color UA Yellow Straw, Yellow 01/09/2020 5:32 PM CDT [facility] Clarity UA Slt Cloudy(A) Clear 01/09/2020 5:32 PM CDT [facility] Glucose UA Negative Negative 01/09/2020 5:32 PM CDT [facility] Bilirubin UA Negative Negative 01/09/2020 5:32 PM CDT [facility] Ketone UA Negative Negative 01/09/2020 5:32 PM CDT [facility] Specific [place] UA 1.025 1.005 - 1.030 01/09/2020 5:32 PM CDT [facility] Blood UA Negative Negative 01/09/2020 5:32 PM T [facility] pH UA 6.0 5.0 - 8.0 pH 01/09/2020 5:32 PM CDT [facility] Protein UA Negative Negative 01/09/2020 5:32 PM CDT [facility] Urobilinogen UA Negative Negative mg/dL 01/09/2020 5:32 PM CDT [facility] Nitrite UA Negative Negative 01/09/2020 5:32 PM CDT [facility] Leukocyte UA Negative Negative 01/09/2020 5:32 PM CDT [facility] RBC UA None Seen None Seen, 0-2, 3-5 # /hpf 01/09/2020 5:32 PM CDT [facility] WBC UA 0-5 None Seen, 0-5 # /hpf 01/09/2020 5:32 PM CDT [facility] Bacteria UA 1+(A) None Seen 01/09/2020 5:32 PM CDT [facility] Squamous Epithelial Cells 11-20(A) None Seen, 0-2, 3-5 /hpf 01/09/2020 5:32 PM CDT [facility] Mucus UA 2+ /LPF 01/09/2020 5:32 PM CDT [facility] Urine URINE SPECIMEN OBTAINED BY CLEAN CATCH PROCEDURE / Unknown Collection / Unknown 01/09/2020 4:08 PM CDT 01/09/2020 4:12 PM CDT Yenifer Slade PA-C LAB - URINALYSIS OR DERABLES [facility] [address] [place] [address] * US KIDNEYS W BLADDER (01/09/2020 2:02 PM CDT) Only the most recent of3 resultswithin the time period is included. Anatomical Region Laterality Modality Abdomen Ultrasound 01/09/2020 1:28 PM CDT Impressions 01/09/2020 2:18 PM CDT Normal renal ultrasound. Urinary Tract Dilation (UTD) Classification UTD P1: Low risk for uropathies * APRPD (AP Renal Pelvis Diameter) 1-1.5 cm * Central calyceal dilation even if APRPD < 1 cm UTD P2: Intermediate risk for uropathies * APRPD > 1.5 cm * Central + peripheral calyceal dilation even if APRPD < 1.5 cm * Dilated ureter * Normal renal parenchymal thickness and appearance * Normal bladder UTD P3: Increased risk for uropathies * APRPD > 1.5 cm and central and peripheral calyceal and/or ureteral dilation as with UTD P2 AND * Abnormal parenchyma even if APRPD < 1.5 cm (thinning, increased echogenicity and/or decreased corticomedullary differentiation) OR * Abnormal bladder (wall thickness, ureterocele and/or posterior urethral dilation) * UTD categorization is based on the most severe finding. Article: Madai JENNINGS, et al. Multidisciplinary consensus on the classification of and urinary tract dilation (UTD classification system). Journal of Pediatric Urology (2014) 10, 982-999. Reading Radiologist: Elsy Goldman on 01/09/2020 at 2:18 PM Narrative 01/09/2020 2:18 PM CDT INDICATION: Recurrent UTI ORDERING PROVIDER: ELVIRA MIXON COMPARISON: 10/19/2018 TECHNIQUE: Fontaine scale and color Doppler ultrasound imaging of the kidneys and urinary bladder per department protocol. FINDINGS: Right kidney: 11.3 cm in length(previously 11.7 cm) The cortical echotexture and thickness are normal. No urinary tract dilation is present. There is no shadowing calculus. The perinephric soft tissues are normal. Left kidney: 11.5 cm in length(previously 11.5 cm) The cortical echotexture and thickness are normal. No urinary tract dilation is present. There is no shadowing calculus. The perinephric soft tissues are normal. Urinary bladder: Urinary bladder is distended to a volume of 118 mL. There is no distal ureteral dilatation. Procedure Note Elsy Goldman, DO - 01/09/2020 INDICATION: Recurrent UTI ORDERING PROVIDER: ELVIRA MIXON COMPARISON: 10/19/2018 TECHNIQUE: Fontaine scale and color Doppler ultrasound imaging of the kidneysand urinary bladder per department protocol. FINDINGS: Right kidney: 11.3 cm in length(previously 11.7 cm) The cortical echotexture and thickness are normal. No urinary tractdilation is present. There is no shadowing calculus. The perinephric soft tissuesare normal. Left kidney: 11.5 cm in length(previously 11.5 cm) The cortical echotexture and thickness are normal. No urinary tractdilation is present. There is no shadowing calculus. The perinephric soft tissuesare normal. Urinary bladder: Urinary bladder is distended to a volume of 118 mL. Thereis no distal ureteral dilatation. IMPRESSION Normal renal ultrasound. Urinary Tract Dilation (UTD) Classification UTD P1: Low risk for uropathies * APRPD (AP Renal Pelvis Diameter) 1-1.5 cm * Central calyceal dilation even if APRPD < 1 cm UTD P2: Intermediate risk for uropathies * APRPD > 1.5 cm * Central + peripheral calyceal dilation even if APRPD < 1.5 cm * Dilated ureter * Normal renal parenchymal thickness and appearance * Normal bladder UTD P3: Increased risk for uropathies * APRPD > 1.5 cm and central and peripheral calyceal and/or ureteraldilation as with UTD P2 AND * Abnormal parenchyma even if APRPD < 1.5 cm (thinning, increasedechogenicity and/or decreased corticomedullary differentiation) OR * Abnormal bladder (wall thickness, ureterocele and/or posteriorurethral dilation) * UTD categorization is based on the most severe finding. Article: Madai JENNINGS, et al. Multidisciplinary consensus on theclassification of and urinary tract dilation (UTD classificationsystem). Journal of Pediatric Urology (2014) 10, 982999. Reading Radiologist: Elsy Goldman on 01/09/2020 at 2:18 PM Elvira Mixon PROPOSAL ANALYST-PRODUCTION CLERK US ORDERABLES * GROSS + MICRO EXAM (STL) (11/28/2018 12:04 PM CDT) Case Report Surgical Pathology Report Case: [id number] Authorizing Provider: Miguel Toledo MD Collected: 11/28/2018 12:04 PM Ordering Location: [facility] Received: 11/28/2018 01:02 PM Pathologist: Tyrone Moreno MD Specimen: Bladder Biopsy 11/29/2018 10:14 AM [facility] Final Diagnosis Urinary Bladder, Biopsy: - Urothelium associated with von Brunn's nests/islands (see comment). Comment: The biopsy sample shows von Brunn's nests/islands, precursors of cystitis cystica. 11/29/2018 10:14 AM [facility] Clinical History The patient is a 13-year-old girl with urinary tract infection who underwent urinary bladder biopsy. 11/29/2018 10:14 AM T [facility] Gross Description Submitted fresh in one container for gross and microscopic examination, labeled with the patient's name, Merlyn Villatoro, and biopsy, is a 3 x 2 x 1 mm fragment of pink-billingsley soft tissue submitted in toto as A1. (CT/jam) 11/29/2018 10:14 AM [facility] Microscopic Description 3 H&E. Sections show urothelium with basal proliferation overlying fibrous connective tissue containing urothelial buds/nodules (von Brunn's nests/islands) with no significant atypia. (DSB) 11/29/2018 10:14 AM CDT [facility] Disclaimer The performance characteristics of all immunohistochemical and indirect immunofluorescence stains (if any) cited in this report were determined by the Histopathology Laboratory of [facility] in compliance with Clinical Laboratory Improvement Amendments of 1988 (CLIA'88) regulations. Some of these tests rely on the use of analyte-specific reagents and are subject to specific labeling requirements by the U.S. Food and Drug Administration (FDA). Such tests were developed by the [facility] of [facility] and have not been cleared or approved by the FDA. The FDA has determined that such clearance or approval is not necessary. These tests are used for clinical purposes and should not be regarded as investigational or for research. This case has been personally reviewed and interpreted by the attending (teaching) pathologist. 11/29/2018 10:14 AM CDT [facility] Embedded Images 11/29/2018 10:14 AM CDT [facility] Pathology/Cytolo gy URINARY BLADDER BIOPSY SPECIMEN / Unknown 11/28/2018 12:04 PM CDT 11/28/2018 1:02 PM CDT Miguel Toledo MD LAB - PATHOLOGY/CYTO LOGY ORDERABLES [facility] [address] [place] [address] * HCG URINE QUALITATIVE - POCT (IP) INTERFACED (11/28/2018 10:31 AM CDT) HCG Qual Urine Negative Negative 11/28/2018 10:28 AM CDT [facility] Urine URINE / Unknown 11/28/2018 1 0:31 AM CDT 11/28/2018 10:28 AM CDT Miguel Toledo MD LAB - POINT OF CARE ORDERABLES [facility] [address] [place] [id number] * HCG URINE QUAL POCT NOTIFICATION (11/28/2018 10:16 AM CDT) Comment Notification Label Only - See Separate Report 11/28/2018 11:30 AM T [facility] Urine URINE / Unknown 11/28/2018 1 0:16 AM CDT 11/28/2018 10:16 AM CDT Miguel Toledo MD LAB - URINALYSIS ORD ERABLES Performing Organization Address [facility] Co de Phone Number [facility] [address] [place] [address] * (ABNORMAL) URINALYSIS ROUTINE AUTO (08/31/2016 11:20 AM CDT) Color UA Yellow Straw, Yellow, Dark Yellow 08/31/2016 2:03 PM T [facility] Clarity UA Clear 08/31/2016 2:03 PM T [facility] Specific [place] UA 1.025 1.005 - 1.030 08/31/2016 2:03 PM T [facility] pH UA 5.5 5.0 - 8.0 pH 08/31/2016 2:03 PM T [facility] Protein UA Negative Negative 08/31/2016 2:03 PM T [facility] Blood UA Trace(A) Negative 08/31/2016 2:03 PM T [facility] Leukocyte UA Negative Negative 08/31/2016 2:03 PM T [facility] Nitrite UA Negative Negative 08/31/2016 2:03 PM T [facility] Glucose UA Negative Negative 08/31/2016 2:03 PM T [facility] Ketone UA Negative Negative 08/31/2016 2:03 PM T [facility] Bilirubin UA Negative Negative 08/31/2016 2:03 PM T [facility] Urobilinogen UA 0.2 0.1 - 1.0 EU/dL 08/31/2016 2:03 PM T [facility] Urine URINE SPECIMEN OBTAINED BY CLEAN CATCH PROCEDURE / Unknown 08/31/2016 11:20 AM CDT 08/31/2016 11:27 AM CDT Elvira Mixon APRN-ELO LAB - URINALYS IS ORDERABLES Performing Organization Address [facility] Co de Phone Number [facility] [address] [place] [address] * URINALYSIS MICROSCOPIC ONLY (08/31/2016 11:20 AM CDT) RBC UA 0-2 0-2, 2-5 # /hpf 08/31/2016 2:03 PM CDT [facility] WBC UA 0-2 0-2, 2-5 # /hpf 08/31/2016 2:03 PM CDT [facility] Bacteria UA None Seen None Seen, Trace 08/31/2016 2:03 PM CDT [facility] Epithelial Cell UA 0-2 0-2, 2-5 # /hpf 08/31/2016 2:03 PM CDT [facility] Urine URINE SPECIMEN OBTAINED BY CLEAN CATCH PROCEDURE / Unknown 08/31/2016 11:20 AM CDT 08/31/2016 11:27 AM CDT Elvira Mixon PROPOSAL ANALYST-PRODUCTION CLERK LAB - URINALYS IS ORDERABLES [facility] [address] [facility] [place] [address] * LAB RESULTS ORDER (07/23/2014 1:22 AM CDT) Narrative 07/23/2014 1:22 AM CDT Ordered by an unspecified provider. Scanned Document LAB - THERAPEUTIC DR CAMPOS MONITORING ORDERABLES * PATHOLOGY TISSUE FOR DERMATOLOGY (05/29/2014 12:00 AM SMELLER) Only the most recent of2 resultswithin the time period is included. Result THIS IS AN ADDENDUM REPORT CASE: [id number] PATIENT: MERLYN VILLATORO THIS REPORT HAS BEEN ADDENDED Reason for Addendum #1: Outside consultation PATHOLOGIC DIAGNOSIS: Left thigh: COMPOUND MELANOCYTIC PROLIFERATION; NOT PRESENT AT SAMPLED MARGIN (see microscopic description and comment) CLINICAL DATA: Nevus (Spitz), I/I R/O atypia. GROSS DESCRIPTION: Received is one formalin filled container labeled with the patient's name and designated left thigh. The specimen consists of a shave biopsy measuring 10x6x3 mm. The margin is inked green. Jar 0. MICROSCOPIC DESCRIPTION: Sections show a compound melanocytic proliferation. There is a lentiginous proliferation of melanocytes between irregular nests of spindled melanocytes. Scattered melanocytes show evidence of upward migration within the epidermis. The melanocytes are large and have a jenny cytoplasm. Rare mitoses within epidermal melanocytes are noted. There are also amorphous eosinophilic deposits present within the epidermis. The dermis shows scattered nests of cytologically similar melanocytes. There is a focus of melanocytes within a dermal vessel (black dot). Co-immunostaining with MART-1/Melan-A and Ki-67 (Mib-1) highlights the melanocytes and reveals an increased proliferative rate with scattered co-labeling cells superficially and rare co-labeling cells deeply. p16 immunostaining highlights the majority of the junctional and dermal melanocytes. 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 Given this concerning finding, this case has been sent to the [facility] ([facility]) in consultation. An addendum will be issued as soon as the results of this consultation are available. This case was reviewed with Dr. Brittani Torres, who agrees with the diagnosis. Electronically signed out by Guillermina Persaud M.D., PhD. 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 Electronically signed out by Guillermina Persaud M.D., PhD. 06/12/2014 3:09:49PM [facility] Comment: Performed at: Dermatopathology Laboratory [facility] - Department of Dermatology [address] [facility] [address] [place] [address] Phone number: [phone] FAX: [phone] 05/29/2014 05/30/2014 Nicole Urbina MD LAB - PATHOLOGY/CY TOLOGY ORDERABLES [facility] [address] [facility]. [address] [place] [address], [facility] [phone] * BORDETELLA PERTUSSIS PCR (11/04/2013 12:47 PM CDT) Bordetella pertussis PCR Not detected Not detected, Invalid 11/04/2013 11:24 PM CDT PSYCHIATRIC MICROBIOLOGY Microbiology NASOPHARYNGEAL SWAB / Unknown 11/04/2013 12:47 PM CDT 11/04/2013 1:15 PM CDT Narrative PSYCHIATRIC MICROBIOLOGY - 11/04/2013 11:24 PM CDT This assay detects a single-copy gene in the toxin promoter region of B. pertussis. It is less sensitive, but more specific, than PCR assays that detect the multi- copy [id number] gene. Phoebe Valdes MD LAB - MICROBIOLOGY ORDERABLES PSYCHIATRIC MICROBIOLOGY [address] [place], [place] [address] [place] [address] * AUDIOLOGY/TYMPANOMETRY ORDER (04/01/2010 7:14 AM SMELLER) Narrative Procedure Note Document, Scanned - 03/31/2010 3:39 PM SMELLER Scanned Document AUDIOLOGY SERVICES O SOFÍAERABLES Care Teams Flotation Tender Helper Relationship Specialty Start Date End Date Karla Galan APRN-ELO [address] [facility] [address] [place] [address] PCP - General Nurse Practitioner 01/09/20
--- OUTSIDE RECORDS SUMMARY | 2024-06-18 | XMS_ITS | Clinical Summary ---
Author Organization [facility] Address [address] [place] [address] [address] Team Prov[address] Care [address] Sign Installer Name Role Phone Caranga Karla BANSAL-COMMUNITY ASSOCIATE Primary Care Provider + Source Comments [facility],non-owned Affiliates and Associated Physician Practices is amultiple site organization consisting of ambulatory clinics and hospital sitesin [place], [place], [place] and [place]. This disclosure is being madepursuant to the Care Everywhere program and may not contain all information available regarding this patient. Last updated 18.[facility] Allergies No known active allergies Medications * Be aware that medications may not be up to date on this document. Alwaysverify current medications with the patient. Medication Sig Dispensed Refills Start Date End Date Status Norethin Hawk-Eth Estrad-FE (TAYTULLA) 1-20 MG-MCG(24) CAPS Take by mouth at bedtime Active ALBUTEROL IN Inhale by mouth every 4 hours as needed Active acetaminophen (TYLENOL) 325 MG tablet Take 2 tablets by mouth every 6 hours as needed for Fever or Pain Maximum allowable Acetaminophen amount = 4 Grams (4000 mg) / 24 hours. 40 tablet 11/28/2018 Active ibuprofen (MOTRIN) 200 MG tablet Take 2 tablets by mouth every 6 hours as needed for Pain 40 tablet 11/28/2018 Active medroxyPROGESTE Mickey (DEPO-PROVERA) 150 MG/ML vial medroxyprogesterone 150 mg/mL intramuscular suspension Active polyethylene glycol 3350 (MIRALAX) 17 GM/SCOOP powder Take 17 g by mouth once daily 850 g 7 01/09/2020 Active Active Problems Problem Noted Date Diagnosed Date Dysuria 01/09/2020 Assessment & Plan (01/09/2020 3:49 PM CDT): A&P - recurrent dysuria, even with negative cultures and UAs; history of recurrent UTIs, none recently even off of nitrofurantoin prophylaxis She does have poor water intake, often drinks carbonated or caffeinated beverages, flavored mattson. She loves dairy as well. FH of nephrolithiasis in paternal grandparents. Recent history of hematuria and pelvic pain which resolved after a sharp pain with urination, which may have been a small stone passing. Possible concentrated urine (urine sample was darker than expected), hypercalciuria, recurrent UTIs. History of possible mass at bladder neck but none seen on cystoscopy and no structures or abnormalities seen on RBUS today. 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 Increase water consumption (64 ounces). UA, calcium/creatinine ratio, urine culture. Chronic idiopathic constipation 01/09/2020 Assessment & Plan (01/09/2020 3:54 PM CDT): A&P - chronic severe constipation, which most [...] spent in complex decision making and discussion. Encounter for surgical aftcr following surgery on the sys 12/18/2018 Assessment & Plan (12/18/2018 4:50 PM CDT): Assessment: - status post Cystoscopy and bladder biopsy. She is healing well and without pain. - bladder and bowel dysfunction and recurrent urinary tract infections Plan: Return to normal daily care. Continue prophylactic antibiotics for 6 months. Return in 6 months with ultrasound. Void every 2 hours, double void; girls should sit with their legs spread in wide V-shape, and with their feet on the floor or a stool. She may also straddle the toilet backwards. Urinary and bowel limitations and recommendations School letter Wiggle and wick -- girls who leak should wipe front to back. Take another piece of toilet paper, hold it against her private area, stand up and wiggle a little or jump. This will catch any drops of urine that may be caught in her private area. Use Dove or Tone bar soap for bathing. No additives or perfumes to soap. TENS unit therapy Pelvic Floor therapy Kt 05/29/2014 Overview (05/29/2014): L lateral thigh; onset age 8 05/29/2014 recent onset inflammation/discomfort; deep shave removal Encounters Date Type Department Care Team Description 06/04/2024 3:01 AM [employer] C[employer]ODIAN - 06/04/2024 4:12 AM [employer] C[employer]ODIAN [place] [address] Damion Osullivan MD Syncope and collapse (Primary Dx) Discharge Disposition: Home or Self Care 06/03/2024 Travel from Last 3 Months Family History Medical History Relation Name Comments Asthma Mother Relation Name Status Comments Mother history of ovar marisa cyst Social History Tobacco Use Types Packs/Day Years [...] Comments Blood Pressure 108/61 06/04/2024 2:45 AM [employer] C[employer]ODIAN Pulse 78 06/04/2024 2:45 AM [employer] CUSTODIAN Temperature 36.6 C (97.8 F) 06/04/2024 2:45 AM [employer]ODIAN Respiratory Rate 20 06/04/2024 2:45 AM [employer] C[employer]ODIAN Oxygen Saturation 99% 06/04/2024 2:45 AM [employer] C[employer]ODIAN Inhaled Oxygen Concentration - - Weight 72.9 kg (160 lb 11.5 oz) 01/09/2020 2:10 PM CDT Height 162.5 cm (5' 3.98 ) 01/09/2020 2:10 PM CD T Body Mass Index 27.61 01/09/2020 2:10 PM CDT Plan of Treatment Health Maintenance Due Date Last Done Comments HIV SCREENING 01/12/2019 HPV VACCINE (1 - 3-dose series) 01/12/2019 CHLAMYDIA/GONORRHEA SCREENING 2020 MENINGOCOCCAL (Group B) VACCINE (1 of 2 - Standard) 2020 HEPATITIS C SCREENING 01/08/2022 DTAP/TDAP/TD VACCINES (1 - Tdap) 01/12/2023 HEPATITIS B VACCINE (1 of 3 - 19+ 3-dose series) 01/12/2023 COVID-19 VACCINE (3 - season) 2024 07/09/2021, 03/28/2021 DEPRESSION SCREENING 05/02/2024 ZOSTER VACCINE (1 of 2) 01/12/2054 INFLUENZA VACCINE Completed 03/22/2024, , 07/06/2022, Additional history exists HIB VACCINE Aged Out No longer eligi ble based on patient's age to complete this topic MENINGOCOCCAL VACCINE Aged Out No christiano glendy eligible based on patient's age to complete this topic PNEUMOCOCCAL VACCINE Aged Out No long er eligible based on patient's age to complete this topic Procedures Procedure Name Priority Date/Time Associated Diagnosis Comments CARDIAC EKG ORDER 06/05/2024 8:3 8 PM [employer]ODIAN SARS-COV-2 (COVID-19) FLU A/B RSV PCR RAPID STAT 06/04/2024 3:43 AM [employer] C[employer]ODIAN HCG BETA BLOOD QUANTITATIVE STAT 06/03/2024 9:50 PM [employer] C[employer]ODIAN TROPONIN-I HIGH SENSITIVE STAT 06/03/2024 9:50 PM [employer] CUSTODIAN COMPREHENSIVE METABOLIC PANEL STAT 06/03/2024 9:50 PM [employer] C[employer]ODIAN CBC W AUTO DIFFERENTIAL STAT 06/03/2024 9:50 PM [employer] CUSTODIAN EKG 12-LEAD STAT 06/03/2024 9:45 PM [employer] CUSTODIAN Syncope and collapse URINALYSIS REFLEX MICROSCOPIC REFLEX CULTURE STAT 06/03/2024 9:14 PM [employer] C[employer]ODIAN XR CHEST 2VW STAT 06/03/2024 9:09 PM [employer] CUSTODIAN Syncope and collapse from Last 3 Months Results * CARDIAC EKG ORDER (06/05/2024 8:38 PM HEAD [employer] CUSTODIAN) Narrative 06/05/2024 8:38 PM [employer] CUSTODIAN Ordered by an unspecified provider. Scanned Document CARDIAC SERVICES ORD ERABLES * SARS-COV-2 (COVID-19) FLU A/B RSV PCR RAPID (06/04/2024 3:43 AM [employer] CUSTODIAN) COVID-19 PCR Not detected Not detected 06/04/19 4:[address] [facility] Influenza A PCR Not detected Not detected 06/04/2024 4:26 AM [employer]OL CUSTODIAN [facility] Influenza B PCR Not detected Not detected 06/04/2024 4:[address] [facility] RSV PCR Not detected Not detected 06/04/2024 4:[address] [facility] Microbiology SPECIMEN FROM NASOPHARYNGEAL STRUCTURE / Unknown Collection / Unknown 06/04/2024 3:43 AM [employer]ODIAN 06/04/2024 3:48 AM [employer]OL CUSTODIAN [facility] - 06/04/2024 4:26 AM [employer] C[employer]ODIAN This nucleic acid amplification assay has been [...] Osullivan MD LAB - MICROBIO LOGY ORDERABLES Performing Organization Address City/[facility]/ZIP Co de Phone Number [facility] [address] [place] [phone] * TROPONIN-I HIGH SENSITIVE (06/03/2024 9:50 PM [employer] C[employer]ODIAN) [facility] Troponin I High Sensitive <3 <=14 ng/L 06/03/2024 10:20 PM [employer] C[employer]ODIAN [facility] Blood BLOOD SPECIMEN / Unknown Venipuncture / Unknown 06/03/2024 9:50 PM [employer] C[employer]ODIAN 06/03/2024 9:56 PM [employer]ODIAN Fannie FAUST LAB - CHEMISTRY SHAN JOYCE Performing Organization Address [facility]/ZIP Co de Phone Number [facility] [address] [place] [phone] * (ABNORMAL) CBC W AUTO DIFFERENTIAL (06/03/2024 9:50 PM [employer] CUSTODIAN) [facility] WBC 6.5 4.0 - 10.7 x10E9/L 06/03/2024 9:59 PM [employer] C[employer]ODIAN [facility] RBC Count 4.15 3.90 - 5.20 x10E12/L 06/03/2024 9:59 PM [employer] C[employer]ODIAN [facility] Hemoglobin 12.8 11.9 - 15.8 g/dL 06/03/2024 9:59 PM [employer] C[employer]ODIAN [facility] Hematocrit 37.7 34.8 - 46.1 % 06/03/2024 9:59 PM [employer] CUSTODIAN [facility] MCV 90.8 80.0 - 98.0 fL 06/03/2024 9:[address] [facility] MCH 30.8 26.7 - 33.6 pg 06/03/2024 9:[address] [facility] MCHC 34.0 31.7 - 36.3 g/dL 06/03/2024 9:[address] [facility] RDW-CV 12.2 11.3 - 14.8 % 06/03/2024 9:[address] [facility] Platelet Count 296 150 - 420 x10E9/L 06/03/2024 9:[address] [facility] MPV 9.1 7.8 - 11.4 fL 06/03/2024 9:[address] [facility] Neutrophil % 41.4 41.0 - 74.0 % 06/03/2024 9:[address] [facility] Lymphocyte % 47.7(H) 17.0 - 47.0 % 06/03/2024 9:[address] [facility] Monocyte % 8.0 3.0 - 11.0 % 06/03/2024 9:[address] [facility] Eosinophil % 1.8 0.0 - 7.0 % 06/03/2024 9:[address] [facility] Basophil % 0.9 0.0 - 1.6 % 06/03/2024 9:[address] [facility] Immature Granulocytes % 0.2 0.0 - 1.0 % 06/03/2024 9:[address] [facility] Neutrophil Absolute 2.71 1.60 - 7.50 x10E9/L 06/03/2024 9:[address] [facility] Lymphocyte Absolute 3.12 1.00 - 4.40 x10E9/L 06/03/2024 9:[address] [facility] Monocyte Absolute 0.52 0.15 - 1.00 x10E9/L 06/03/2024 9:[address] [facility] Eosinophil Absolute 0.12 0.00 - 0.60 x10E9/L 06/03/2024 9:[address] [facility] Basophil Absolute 0.06 0.00 - 0.13 x10E9/L 06/03/2024 9:[address] [facility] Blood BLOOD SPECIMEN / Unknown Venipuncture / Unknown 06/03/2024 9:50 PM [employer]ODIAN 06/03/2024 9:56 PM [employer] C[employer]ODIAN Fannie FAUST LAB - HEMATOLOGY ORD ERABLES [facility] [address] [place] [address] * (ABNORMAL) COMPREHENSIVE METABOLIC PANEL (06/03/2024 9:50 PM [employer] CUSTODIAN) [facility] Glucose 124(H) 70 - 99 mg/dL 06/03/2024 10:[address] [facility] Sodium 137 136 - 145 mmol/L 06/03/2024 10:[address] [facility] Potassium 3.8 3.5 - 5.1 mmol/L 06/03/2024 10:[address] [facility] Chloride 112(H) 98 - 107 mmol/L 06/03/2024 10:[address] [facility] CO2 18(L) 22 - 29 mmol/L 06/03/2024 10:[address] [facility] Calcium 8.8 8.4 - 10.4 mg/dL 06/03/2024 10:[address] [facility] Anion Gap 7 6 - 16 mmol/L 06/03/2024 10:[address] [facility] BUN 12 5.3 - 18.7 mg/dL 06/03/2024 10:[address] [facility] Creatinine 0.68 0.57 - 1.11 mg/dL 06/03/2024 10:[address] [facility] Alkaline Phosphatase 65 40 - 150 U/L 06/03/2024 10:[address] [facility] ALT 9 0 - 55 U/L 06/03/2024 10:[address] [facility] AST 12 5 - 34 U/L 06/03/2024 10:[address] [facility] Protein Total 7.1 6.4 - 8.3 gm/dL 06/03/2024 10:[address] [facility] Albumin 4.1 3.4 - 5.0 gm/dL 06/03/2024 10:[address] [facility] Bilirubin Total 0.5 0.2 - 1.2 mg/dL 06/03/2024 10:[address] [facility] eGFR by CKD-EPI >90 >=90 mL/min/1.7 3 m2 06/03/2024 10:12 PM [employer]ODIAN [facility] Blood BLOOD SPECIMEN / Unknown Venipuncture / Unknown 06/03/2024 9:50 PM [employer] C[employer]ODIAN 06/03/2024 9:56 PM [employer]ODIAN [facility] LAB - CHEMISTRY SHAN JOYCE Performing Organization Address [facility] de Phone Number [facility] [address] [place] [phone] * HCG BETA BLOOD QUANTITATIVE (06/03/2024 9:50 PM [employer] C[employer]ODIAN) Pathologist [facility] hCG Quantitative <2.42 mIU/mL 06/03/19 10:16 PM [employer] C[employer]ODIAN [facility] Blood BLOOD SPECIMEN / Unknown Venipuncture / Unknown 06/03/2024 9:50 PM [employer] CUSTODIAN 06/03/2024 9:56 PM [employer] C[employer]ODIAN Narrative [facility] - 06/03/2024 10:16 PM [employer] CUSTODIAN hCG Reference Range, mIU/mL: Non Females 0-6.0 [...] makes unlikely. [facility] LAB - CHEMISTRY SHAN JOYCE Performing Organization Address [facility] de Phone Number [facility] [address] [place] [phone] * EKG 12-LEAD (06/03/2024 9:45 PM [employer] C[employer]ODIAN) Ventricular Rate 86 BPM [facility] Atrial Rate 86 BPM [facility] P-R Interval 154 ms [facility] QRS Duration ms 76 ms [facility] Q-T Interval ms 344 ms [facility] QTC Calculation (Bezet) 411 ms [facility] Calculated P [place] 58 degrees [facility] Calculated R [place] 83 degrees [facility] Calculated T [place] 63 degrees [facility] Interpretation EKG NORMAL SINUS RHYTHM NORMAL ECG NO PREVIOUS ECGS AVAILABLE Confirmed by MD North, Rui ([id number]) on 06/04/2024 7:36:29 AM [facility] 06/03/2024 9:45 PM [employer] C[employer]ODIAN 06/04/2024 7:36 AM [facility] Fannie FAUST ECG ORDERABLES [facility] * URINALYSIS REFLEX MICROSCOPIC REFLEX CULTURE (06/03/2024 9:14 PM [employer] C[employer]ODIAN) Color UA Yellow Yellow, Straw 06/03/2024 9:[address] [facility] Clarity UA Clear Clear 06/03/2024 9:[address] [facility] Glucose UA Normal Normal 06/03/2024 9:[address] [facility] Bilirubin UA Negative Negative 06/03/2024 9:[address] [facility] Ketone UA Negative Negative 06/03/2024 9:[address] [facility] Specific Oblong UA 1.023 1.005 - 1.030 06/03/2024 9:[address] [facility] Blood UA Negative Negative 06/03/2024 9:[address] [facility] pH UA 5.5 5.0 - 9.0 pH 06/03/2024 9:[address] [facility] Protein UA Negative Negative 06/03/2024 9:[address] [facility] Urobilinogen UA Normal Normal mg/dL 025 9:[address] [facility] Nitrite UA Negative Negative 06/03/2024 9:[address] [facility] Leukocyte UA Negative Negative 06/03/2024 9:[address] [facility] Urine URINE SPECIMEN OBTAINED BY CLEAN CATCH PROCEDURE / Unknown Collection / Unknown 06/03/2024 9:14 PM [employer] C[employer]ODIAN 06/03/2024 9:19 PM [employer]ODIAN Narrative [facility] - 06/03/2024 9:22 PM [employer]ODIAN Fannie FAUST LAB - URINALYSIS ORD ERABLES [facility] [address] [place] [address] * XR CHEST 2VW (06/03/2024 9:09 PM [employer] C[employer]ODIAN) Anatomical Region Laterality Modality Chest Radiographic Peg ging 06/04/2024 10:0 1 AM [employer]ODIAN Impressions 06/04/2024 10:01 AM [employer]ODIAN IMPRESSION: No active cardiac or pulmonary disease. > Interpreting Provider: Sheldon Curry MD on 06/04/2024 10:01 AM Narrative 06/04/2024 10:01 AM [employer]ODIAN PROCEDURE: XR CHEST 2VW DATE/TIME OF EXAM: [...] AM [facility] RDER[facility]LES from Last [address] Sign Installer Relationship Specialty Start Date End Date Karla Galan APRN-COMMUNITY ASSOCIATE [address] [id number] PCP - General Nurse Practitioner 01/09/20
--- OUTSIDE RECORDS SUMMARY | 2024-06-18 | XMS_ITS | Data Portability ---
Author Organization [facility]oss[facility] Address [address] [place] [address] Assessment No assessment recorded. Plan of Treatment Reminders Order Date Submit Date Provider Last Modified By Organization Details Last Modified Time Details Appointments None recorded. Lab unlisted lab - STD screening ([facility]) 2023 [place] [facility], [address] [place], [address], 4 13:07:28 test, urine 2023 [email or web address] [facility], [address] [place], [address], 4 16:31:18 bacterial vaginosis + vaginitis panel, vaginal 2023 024 [facility], [address] [place], [address], 4 15:10:55 Referral None recorded. Procedures None recorded. Surgeries None recorded. Imaging None recorded. Medication Orders NuvaRing 0.12 mg-0.015 mg/24 hr vaginal 2023 024 [id number], [address] [place], [place], [id number], 4 16:32:35 Patient TargetsNo targets recorded. Patient InstructionsNo instructions recorded. Reason for Referral None Reported. Results Created Date Observation Date Name Description Value Unit Range Abnormal Flag Note LastModifiedBy Organization Detail LastModifiedTime 04/09/20 24 04/10/2024 STD ALEXIS HOWARD ([facility] ) hep BS Ag Non-Re active non-re active normal Not Available [facility] [address] [place], [address], 04/10/2024 13:07:28 04/09/20 24 04/10/2024 STD SCREMiguel Angel HOWARD ([facility] ) hep C Ab Non-Re active non-re active normal Not Available [facility] [address] [place] [address], [address], 04/10/2024 13:07:28 04/09/20 24 04/10/2024 STD ALEXIS HOWARD ([facility] ) HIV 1/2 Ag/Ab Non-Re active non-re active normal Not Available [address], [address], 04/10/2024 13:07:28 04/09/20 24 04/10/2024 STD ALEXIS HOWARD ([facility] ) syphilis Ab Non-Re active non-re active normal Not Available [address], [address], 04/10/2024 13:07:28 04/09/20 24 04/11/2024 VAGIN ITIS PLUS STD PANEL bacterial vaginosis BV POS negati ve abnormal Not Available [address], [address], 04/11/2024 15:10:55 04/09/20 24 04/11/2024 VAGIN ITIS PLUS STD PANEL brynn species C. spp neg negati ve normal Not Available [facility] [address] [place] [address], [address], 04/11/2024 15:10:55 04/09/20 24 04/11/2024 VAGIN ITIS PLUS STD PANEL brynn glabrata C. gla neg negati ve normal Not Available [facility] [address] [place] [address], [address], 04/11/2024 15:10:55 04/09/20 24 04/11/2024 VAGIN ITIS PLUS STD PANEL trichomonas vaginalis CV/TV TRICH neg negati ve normal Not Available [facility] [address] [place], [address], 04/11/2024 15:10:55 04/09/20 24 04/11/2024 VAGIN ITIS PLUS STD PANEL chlamydia trachomatis CT neg negati ve normal This repor t is inten ded for us in clini brit monit oring and manag ement of patie nts. It is not inten ded for use in medic al-le gal appli catio n. Not Available [facility] [address] [place], [address], 04/11/2024 15:10:55 04/09/20 24 04/11/2024 VAGIN ITIS PLUS STD PANEL neisseria gonorrhoeae GC neg negati ve normal This repor t is inten ded for us in clini brit monit oring and manag ement of patie nts. It is not inten ded for use in medic al-le gal appli catio n. Not Available [facility] [address] [place], [address], 04/11/2024 15:10:55 04/09/20 24 04/09/2024 pregn sigrid test, urine HCG negati ve Not Available [facility] [address] [place], [address], 04/09/2024 15:23:16 Result Notes None recorded. Problems Name Problem SNOMED Code Status Onset Date Resolution Date Notes Provider Name and Address Organization Details Recorded Time Endometriosis (clinical) 284363477 Active 2023 Se myers [facility] 4 16:02:34 Problem Notes None recorded. Procedures Surgical History Date Name Laterality Status Provider Name and Address Organization Details Recorded Time 2 Date of Last Colonoscopy completed [facility] [employer] [facility] 04/09/2024 16:03:09 Colonoscopy completed [facility] [employer] [facility] 04/09/2024 15:54:14 Imaging Results None recorded. Procedure Notes None recorded. Medical Equipment None Reported. Allergies No known drug allergies Medications Name Sig Start Date Stop Date Status Note LastModified by Organization Details LastModified Time doxycycline hyclate 100 mg capsule TAKE 1 CAPSULE BY MOUTH 2 TIMES DAILY FOR 14 DAYS. 04/09 completed Not Available Not Available Not Available fluconazole 150 mg tablet TAKE 1 TABLET BY MOUTH ONCE AFTER ANTIBIOTI CS. MAY REPEAT ANOTHER TAB 72 HOURS LATER 04/09 completed Not Available Not Available Not Available hydrocodone 5 mg-acetamin ophen 325 mg tablet TAKE 1 TABLET BY MOUTH EVERY 4 HOURS NEEDED FOR PAIN 04/09 completed Not Available Not Available Not Available prednisone 20 mg tablet active Not Available Not Available Not Available penicillin V potassium 500 mg tablet TAKE 1 TABLET BY MOUTH EVERY 12 HOURS FOR 10 DAYS 04/09 completed Not Available Not Available Not Available topiramate 25 mg tablet TAKE 1 TABLET BY MOUTH EVERY DAY IN THE MORNING 04/09 completed Not Available Not Available Not Available metronidazo le 500 mg tablet Take 1 tablet every 12 hours by oral route for 7 days. active Not Available Not Available No t Available phentermine 37.5 mg tablet TAKE 1 TABLET BY MOUTH DAILY 04/09 completed Not Available Not Available Not Available valacyclovi r 500 mg tablet TAKE 1 TABLET BY MOUTH TWICE A DAY FOR 10 DAYS 04/09 completed Not Available Not Available Not Available amoxicillin 875 mg tablet 04/09 completed Not Available Not Available Not Available dextroamphe tamine-amph etamine ER 20 mg 24hr capsule,ext end release TAKE 1 CAPSULE BY MOUTH EVERY DAY IN THE MORNING FOR 30 DAYS 04/09 completed Not Available Not Available Not Available phenazopyri dine 100 mg tablet TAKE 1 TABLET BY MOUTH 3 TIMES DAILY NEEDED FOR PAIN. 04/09 completed Not Available Not Available Not Available cephalexin 500 mg capsule TAKE 1 CAPSULE BY MOUTH TWICE A DAY FOR 7 DAYS active Not Available Not Available No t Available ondansetron 4 mg disintegrat ing tablet DISSOLVE 1 TABLET ON TONGUE EVERY 8 HOURS NEEDED FOR NAUSEA AND VOMITING 04/09 completed Not Available Not Available Not Available cholecalcif eleni (vitamin D3) 125 mcg (5,000 unit) capsule TAKE 1 CAPSULE (125 MCG TOTAL) BY MOUTH DAILY. 04/09 completed Not Available Not Available Not Available dextroamphe tamine-amph etamine ER 25 mg 24hr capsule,ext end release TAKE 1 CAPSULE BY MOUTH EVERY DAY IN THE MORNING FOR 30 DAYS 04/09 completed Not Available Not Available Not Available azithromyci n 500 mg tablet TAKE 2 TABLETS BY MOUTH ONE TIME 04/09 completed Not Available Not Available Not Available escitalopra m 10 mg tablet TAKE 1 TABLET BY MOUTH DAILY IN THE MORNING active Not Available Not Available No t Available escitalopra m 20 mg tablet TAKE 1 TABLET BY MOUTH EVERY DAY FOR 30 DAYS active Not Available Not Available No t Available topiramate 50 mg tablet TAKE 1 TABLET BY MOUTH DAILY IN THE MORNING active Not Available Not Available No t Available nitrofurant oin monohydrate /macrocryst als 100 mg capsule 04/09 completed Not Available Not Available Not Available Vyvanse 30 mg capsule TAKE 1 CAPSULE BY MOUTH DAILY IN THE MORNING active Not Available Not Available No t Available Vraylar 1.5 mg capsule TAKE 1 CAPSULE BY MOUTH DAILY. 04/09 completed Not Available Not Available Not Available Vraylar 4.5 mg capsule TAKE 1 CAPSULE BY MOUTH EVERY DAY FOR 30 DAYS 04/09 completed Not Available Not Available Not Available Vraylar 3 mg capsule TAKE 1 CAPSULE BY MOUTH EVERY DAY FOR 14 DAYS 04/09 completed Not Available Not Available Not Available Caplyta 42 mg capsule TAKE 1 CAPSULE BY MOUTH DAILY AT BEDTIME 04/09 completed Not Available Not Available Not Available EnilloRing 0.12 mg-0.015 mg/24 hr vaginal ring Insert 1 vaginal ring every month by vaginal route. active Not Available Not Available No t Available Vitals Date Recorded Body weight Body temperature Body mass index (BMI) Percentile per age and sex Body mass index (BMI) Body height Systolic blood pressure Diastolic blood pressure Provider Name and Address Organization Details Last Updated DateTime 4 71522.7 8 g 97.5 [degF] 97 % 35.6 kg/m2 162.56 cm 110 mm[Hg] 74 mm[Hg] [facility] [employer] [facility] 4 16:09:12 Social History Question Answer Notes LastModified by Organizat ion Details LastModified Time Tobacco Smoking Status Never Smoker Se myers, [facility] 04/09/2024 15:54:10 What Is Your Level Of Alcohol Consumption? Occasional [email or web address] Information not available 04/09/2024 If You Are , What Was Your Level Of Alcohol Consumption Prior To ? None [email or web address] Information not available 04/09/2024 How Many Years Have You Consumed Alcohol? 1 [email or web address] Information not available 04/09/2024 Are You Blind Or Do You Have Difficulty Seeing? No [email or web address] Information not available 04/09/2024 Are You Currently Employed? No [email or web address] Information not available 04/09/2024 Are You Deaf Or Do You Have Serious Difficulty Hearing? No [email or web address] Information not available 04/09/2024 What Type Of Diet Are You Following? REGULAR [email or web address] Information not available 04/09/2024 How Many Children Do You Have? 0 [email or web address] Information not available 04/09/2024 What Is Your Relationship Status? Single [email or web address] Information not available 04/09/2024 Are You Sexually Active? Yes Information not available 04/09/2024 What Types Of Sporting Activities Do You Participate In? N/A [email or web address] Information not available 04/09/2024 Do You Use Any Illicit Or Recreational Drugs? No [email or web address] Information not available 04/09/2024 Sex: Unknown Functional Status Question Answer Note LastModified by Organization D etails LastModified Time What is your exercise level? Moderate [email or web address] Information not available 04/09/2024 Mental Status None recorded. Family History Relationship Description Onset Age of this Age Resolved Age Notes LastModified by Organization Details LastModified Time Father Irritable bowel syndrome [email or web address] Not available 04/09 15:54:26 Father Hypertensive disorder [email or web address] Not available 04/09 15:54:26 Mother Irritable bowel syndrome [email or web address] Not available 04/09 15:54:26 Mother Endometriosi s (clinical) Not available 15:54:26 Mother Depressive disorder [email or web address] Not available 04/09 15:54:26 Maternal Grandmother Malignant tumor of cervix [email or web address] Not available 04/09 15:54:26 Sister Depressive disorder [email or web address] Not available 04/09 15:54:26 Maternal Grandfather Myocardial infarction Not available 01/2024 15:54:26 Paternal Grandfather Cerebrovascu lar accident Not available 15:54:26 Paternal Grandfather Malignant tumor of breast Not available 04/09 15:54:26 Medical History Condition Response Depression Y ADD/ADHD Y Eating Disorder Y Anemia Y Anxiety Disorder Y Asthma Y Seasonal allergies Y IBS (Irritable Bowel Syndrome) Y Gynecological History Statement/Question Response Flow Heavy Date of last HPV Date of LMP 03/13/2024 HPV Vaccine Y Duration of Flow (days) 6 Most Recent Mammogram Current Control Method None Age at Menarche 8 Date of Last Colonoscopy 05/02/2021 Most Recent Bone Density Frequency of Cycle (Q days) 32 Date of Last Pap Smear Obstetrics History GPAL:G 0 P 0 0 0 0 Past Encounters Encounter ID Performer Location Encounter Start Date Encounter Closed Date Diagnosis/Indication Diagnosis SNOMED-CT Code Diagnosis ICD10 Code Diagnosis Note [id number] [facility] [address] [place] [address] 04/09/2024 15:47:34 04/09/2024 16:33:39 Contraceptive counseling 9224187210 2105 Z30.09 Acute vaginitis 15117243 N76.0 Pt comes in today for Infection/ STI testing. Discussed the various types of Infections and STIs, related symptoms and the potential consequenc es (including effects on fertility) of STI. Reviewed ways to limit exposure and prevention techniques . Vulvar care guidelines and safe sex practices reviewed. [place] pending results. Accepts STI blood work Venereal d isease screening 236580165 Z11.3 Health Concerns Section Related Observation LastModified by Organization Detai ls LastModified Time None Recorded Concern Status LastModified by Organization Details LastModified Time None Recorded Advance Directives Directive None Recorded Payers Encounter Date Sequence Insurance Name Policy Number Policy Coronel Covered Member ID Coronel Member ID Guarantor Name 04/09/2024 1 [place] [id number] Kirit [id number] Merlyn [place] Notes Date Note Type Note Provider Name and Address Organization Details Recorded Time 04/09/2024 text/html Pt is here to discuss starting control ring or patch. She states she's tried the pills and they are not for her. Pt LMP started 03/13/24. Pt c/o having a vaginal odor for about two weeks. She wants to know if she can be swabbed for BV. BARBIE FLORES, [facility]- [address] [place], [address], [facility] 04/09/2024 16:32:51 OBGyn Episode No OBEpisode recorded.
--- OUTSIDE RECORDS SUMMARY | 2024-06-18 | XMS_ITS | Referral Summary ---
Author Organization [facility] Address [address] [place] [address] Care Team Providers Care Screen Printing Supervisor Name Role Phone Karla Galan NIMISHA-VICE PRESIDENT MEDICAL AFFAIRS Primary Care Provider + Source Comments [facility],non-owned Affiliates and Associated Physician Practices is amultiple site organization consisting of ambulatory clinics and hospital sitesin [place], [place], [place] and [place]. This disclosure is being madepursuant to the Care Everywhere program and may not contain all information available regarding this patient. Last updated 18.[facility] Encounters Date Type Department Care Team Description 06/04/2024 3:01 AM CLAY MACHINE OPERATOR - 06/04/2024 4:12 AM CLAY MACHINE OPERATOR Emergency ER at [address] [address] Damion Osullivan MD Syncope and collapse (Primary Dx) Discharge Disposition: Home or Self Care 06/03/2024 Travel from Last 3 Months Allergies No known active allergies Medications * [...] 05/29/2014 recent onset inflammation/discomfort; deep shave removal Social History Tobacco Use Types Packs/Day Years [...] Comments Blood Pressure 108/61 06/04/2024 2:45 AM CLAY MACHINE OPERATOR Pulse 78 06/04/2024 2:45 AM CLAY MACHINE OPERATOR Temperature 36.6 C (97.8 F) 06/04/2024 2:45 AM CLAY MACHINE OPERATOR Respiratory Rate 20 06/04/2024 2:45 AM CLAY MACHINE OPERATOR Oxygen Saturation 99% 06/04/2024 2:45 AM CLAY MACHINE OPERATOR Inhaled Oxygen Concentration - - Weight 72.9 kg (160 lb 11.5 oz) 01/09/2020 2:10 PM CDT Height 162.5 cm (5' 3.98 ) 01/09/2020 2:10 PM CD T Body Mass Index 27.61 01/09/2020 2:10 PM CDT Plan of Treatment Not on file Procedures Procedure Name Priority Date/Time Associated Diagnosis Comments CARDIAC EKG ORDER 06/05/2024 8:3 8 PM CLAY MACHINE OPERATOR SARS-COV-2 (COVID-19) FLU A/B RSV PCR RAPID STAT 06/04/2024 3:43 AM CLAY MACHINE OPERATOR HCG BETA BLOOD QUANTITATIVE STAT 06/03/2024 9:50 PM CLAY MACHINE OPERATOR TROPONIN-I HIGH SENSITIVE STAT 06/03/2024 9:50 PM CLAY MACHINE OPERATOR COMPREHENSIVE METABOLIC PANEL STAT 06/03/2024 9:50 PM CLAY MACHINE OPERATOR CBC W AUTO DIFFERENTIAL STAT 06/03/2024 9:50 PM CLAY MACHINE OPERATOR EKG 12-LEAD STAT 06/03/2024 9:45 PM CLAY MACHINE OPERATOR Syncope and collapse URINALYSIS REFLEX MICROSCOPIC REFLEX CULTURE STAT 06/03/2024 9:14 PM CLAY MACHINE OPERATOR XR CHEST 2VW STAT 06/03/2024 9:09 PM CLAY MACHINE OPERATOR Syncope and collapse from Last 3 Months Results * CARDIAC EKG ORDER (06/05/2024 8:38 PM CLAY MACHINE OPERATOR) Narrative 06/05/2024 8:38 PM CLAY MACHINE OPERATOR Ordered by an unspecified provider. Scanned Document CARDIAC SERVICES ORD ERABLES * SARS-COV-2 (COVID-19) FLU A/B RSV PCR RAPID (06/04/2024 3:43 AM CLAY MACHINE OPERATOR) COVID-19 PCR Not detected Not detected 06/04/19 4:26 AM CLAY MACHINE OPERATOR [facility] Influenza A PCR Not detected Not detected 06/04/2024 4:26 AM CLAY MACHINE OPERATOR [facility] Influenza B PCR Not detected Not detected 06/04/2024 4:26 AM [facility] RSV PCR Not detected Not detected 06/04/2024 4:26 AM [facility] Microbiology SPECIMEN FROM NASOPHARYNGEAL STRUCTURE / Unknown Collection / Unknown 06/04/2024 3:43 AM CLAY MACHINE OPERATOR 06/04/2024 3:48 AM CLAY MACHINE OPERATOR Narrative [facility] - 06/04/2024 4:26 AM CLAY MACHINE OPERATOR This nucleic acid amplification assay has been [...] Osullivan MD LAB - MICROBIO LOGY ORDERABLES [facility] [address] [place] [address] * TROPONIN-I HIGH SENSITIVE (06/03/2024 9:50 PM CLAY MACHINE OPERATOR) Troponin I High Sensitive <3 <=14 ng/L 06/03/2024 10:20 PM CLAY MACHINE OPERATOR [facility] Blood BLOOD SPECIMEN / Unknown Venipuncture / Unknown 06/03/2024 9:50 PM CLAY MACHINE OPERATOR 06/03/2024 9:56 PM CLAY MACHINE OPERATOR Fannie FAUST LAB - CHEMISTRY SHAN JOYCE [facility] [address] [place] [address] * (ABNORMAL) CBC W AUTO DIFFERENTIAL (06/03/2024 9:50 PM CLAY MACHINE OPERATOR) [facility] WBC 6.5 4.0 - 10.7 x10E9/L 06/03/2024 9:59 PM CLAY MACHINE OPERATOR [facility] RBC Count 4.15 3.90 - 5.20 x10E12/L 06/03/2024 9:59 PM [facility] Hemoglobin 12.8 11.9 - 15.8 g/dL 06/03/2024 9:59 PM [facility] Hematocrit 37.7 34.8 - 46.1 % 06/03/2024 9:59 PM [facility] MCV 90.8 80.0 - 98.0 fL 06/03/2024 9:59 PM [facility] MCH 30.8 26.7 - 33.6 pg 06/03/2024 9:59 PM [facility] MCHC 34.0 31.7 - 36.3 g/dL 06/03/2024 9:59 PM [facility] RDW-CV 12.2 11.3 - 14.8 % 06/03/2024 9:59 PM [facility] Platelet Count 296 150 - 420 x10E9/L 06/03/2024 9:59 PM [facility] MPV 9.1 7.8 - 11.4 fL 06/03/2024 9:59 PM [facility] Neutrophil % 41.4 41.0 - 74.0 % 06/03/2024 9:59 PM [facility] Lymphocyte % 47.7(H) 17.0 - 47.0 % 06/03/2024 9:59 PM [facility] Monocyte % 8.0 3.0 - 11.0 % 06/03/2024 9:59 PM [facility] Eosinophil % 1.8 0.0 - 7.0 % 06/03/2024 9:59 PM [facility] Basophil % 0.9 0.0 - 1.6 % 06/03/2024 9:59 PM [facility] Immature Granulocytes % 0.2 0.0 - 1.0 % 06/03/2024 9:59 PM [facility] Neutrophil Absolute 2.71 1.60 - 7.50 x10E9/L 06/03/2024 9:59 PM [facility] Lymphocyte Absolute 3.12 1.00 - 4.40 x10E9/L 06/03/2024 9:59 PM [facility] Monocyte Absolute 0.52 0.15 - 1.00 x10E9/L 06/03/2024 9:59 PM [facility] Eosinophil Absolute 0.12 0.00 - 0.60 x10E9/L 06/03/2024 9:59 PM [facility] Basophil Absolute 0.06 0.00 - 0.13 x10E9/L 06/03/2024 9:59 PM [facility] Blood BLOOD SPECIMEN / Unknown Venipuncture / Unknown 06/03/2024 9:50 PM CLAY MACHINE OPERATOR 06/03/2024 9:56 PM CLAY MACHINE OPERATOR Fannie FAUST LAB - HEMATOLOGY ORD ERABLES [facility] [address] [place] [address] * (ABNORMAL) COMPREHENSIVE METABOLIC PANEL (06/03/2024 9:50 PM CLAY MACHINE OPERATOR) [facility] Glucose 124(H) 70 - 99 mg/dL 06/03/2024 10:12 PM [facility] Sodium 137 136 - 145 mmol/L 06/03/2024 10:12 PM [facility] Potassium 3.8 3.5 - 5.1 mmol/L 06/03/2024 10:12 PM [facility] Chloride 112(H) 98 - 107 mmol/L 06/03/2024 10:12 PM [facility] CO2 18(L) 22 - 29 mmol/L 06/03/2024 10:12 PM [facility] Calcium 8.8 8.4 - 10.4 mg/dL 06/03/2024 10:12 PM [facility] Anion Gap 7 6 - 16 mmol/L 06/03/2024 10:12 PM [facility] BUN 12 5.3 - 18.7 mg/dL 06/03/2024 10:12 PM [facility] Creatinine 0.68 0.57 - 1.11 mg/dL 06/03/2024 10:12 PM [facility] Alkaline Phosphatase 65 40 - 150 U/L 06/03/2024 10:12 PM [facility] ALT 9 0 - 55 U/L 06/03/2024 10:12 PM [facility] AST 12 5 - 34 U/L 06/03/2024 10:12 PM [facility] Protein Total 7.1 6.4 - 8.3 gm/dL 06/03/2024 10:12 PM [facility] Albumin 4.1 3.4 - 5.0 gm/dL 06/03/2024 10:12 PM [facility] Bilirubin Total 0.5 0.2 - 1.2 mg/dL 06/03/2024 10:12 PM [facility] eGFR by CKD-EPI >90 >=90 mL/min/1.7 3 m2 06/03/2024 10:12 PM [facility] Blood BLOOD SPECIMEN / Unknown Venipuncture / Unknown 06/03/2024 9:50 PM CLAY MACHINE OPERATOR 06/03/2024 9:56 PM CLAY MACHINE OPERATOR Fannie FAUST LAB - CHEMISTRY SHAN JOYCE [facility] Organization Address City/State/[facility] Co de Phone Number [facility] [address] [place] [address] * HCG BETA BLOOD QUANTITATIVE (06/03/2024 9:50 PM CLAY MACHINE OPERATOR) Pathologist [facility] hCG Quantitative <2.42 mIU/mL 06/03/19 10:16 PM CLAY MACHINE OPERATOR [facility] Blood BLOOD SPECIMEN / Unknown Venipuncture / Unknown 06/03/2024 9:50 PM CLAY MACHINE OPERATOR 06/03/2024 9:56 PM CLAY MACHINE OPERATOR Narrative [facility] - 06/03/2024 10:16 PM CLAY MACHINE OPERATOR hCG Reference Range, mIU/mL: Non Females 0-6.0 [...] ORDE MARIA DEL CARMEN Performing Organization Address [facility] Co de Phone Number [facility] [address] [place] [address] * EKG 12-LEAD (06/03/2024 9:45 PM CLAY MACHINE OPERATOR) Ventricular Rate 86 BPM [facility] Atrial Rate 86 BPM [facility] P-R Interval 154 ms [facility] QRS Duration ms 76 ms [facility] Q-T Interval ms 344 ms [facility] QTC Calculation (Bezet) 411 ms [facility] Calculated P [place] 58 degrees [facility] Calculated R [place] 83 degrees [facility] Calculated T [place] 63 degrees [facility] Interpretation EKG NORMAL SINUS RHYTHM NORMAL ECG NO PREVIOUS ECGS AVAILABLE Confirmed by MD North, Rui ([id number]) on 06/04/2024 7:36:29 AM [facility] MUSE 06/03/2024 9:45 PM CLAY MACHINE OPERATOR 06/04/2024 7:36 AM CLAY MACHINE OPERATOR Fannie FAUST ECG ORDERABLES Performing Organization Address [facility] Co de Phone Number [facility] * URINALYSIS REFLEX MICROSCOPIC REFLEX CULTURE (06/03/2024 9:14 PM CLAY MACHINE OPERATOR) Color UA Yellow Yellow, Straw 06/03/2024 9:22 PM CLAY MACHINE OPERATOR [facility] Clarity UA Clear Clear 06/03/2024 9:22 PM CLAY MACHINE OPERATOR [facility] Glucose UA Normal Normal 06/03/2024 9:22 PM CLAY MACHINE OPERATOR [facility] Bilirubin UA Negative Negative 06/03/2024 9:22 PM CLAY MACHINE OPERATOR [facility] Ketone UA Negative Negative 06/03/2024 9:22 PM [facility] Specific [place] UA 1.023 1.005 - 1.030 06/03/2024 9:22 PM [facility] Blood UA Negative Negative 06/03/2024 9:22 PM [facility] pH UA 5.5 5.0 - 9.0 pH 06/03/2024 9:22 PM [facility] Protein UA Negative Negative 06/03/2024 9:22 PM [facility] Urobilinogen UA Normal Normal mg/dL 025 9:22 PM [facility] Nitrite UA Negative Negative 06/03/2024 9:22 PM [facility] Leukocyte UA Negative Negative 06/03/2024 9:22 PM [facility] Urine URINE SPECIMEN OBTAINED BY CLEAN CATCH PROCEDURE / Unknown Collection / Unknown 06/03/2024 9:14 PM CLAY MACHINE OPERATOR 06/03/2024 9:19 PM CLAY MACHINE OPERATOR Narrative [facility] - 06/03/2024 9:22 PM CLAY MACHINE OPERATOR Fannie FAUST LAB - URINALYSIS ORD ERABLES Performing Organization Address City/State/[facility] Co de Phone Number [facility] [address] [place], [place] [id number] * XR CHEST 2VW (06/03/2024 9:09 PM CLAY MACHINE OPERATOR) Anatomical Region Laterality Modality Chest Radiographic Peg ging 06/04/2024 10:0 1 AM CLAY MACHINE OPERATOR Impressions 06/04/2024 10:01 AM CLAY MACHINE OPERATOR IMPRESSION: No active cardiac or pulmonary disease. > Interpreting Provider: Sheldon Curry MD on 06/04/2024 10:01 AM Narrative 06/04/2024 10:01 AM CLAY MACHINE OPERATOR PROCEDURE: XR CHEST 2VW DATE/TIME OF EXAM: [...] RDERABLES from Last 3 Months Care Teams Screen Printing Supervisor Relationship Specialty Start Date End Date Karla Galan APRN-ELO [address] [place] [phone] PCP - General Nurse Practitioner 01/09/20
[2024-06-18 00:15] VITALS: BP 115/70; PULSE 78; RESP 18; TEMP 36.4; O2SAT 100
[2024-06-18 01:35] LABS: Add Urine Microscopic? YES; Appearance Urine Turbid (Clear); Bacteria Urine 1+ /hpf; Bilirubin Urine Negative (Negative); Blood Urine 1+ (Negative); Color Urine Yellow (Yellow); Glucose Urine UA Negative (Negative); Ketones Urine Negative (Negative); Leukocyte Esterase Ur 2+ LEU/UL (Negative); Nitrate Urine Negative (Negative); Non Pathogenic Casts 0-2; Protein Urine Trace mg/dL (Negative); Specific Grav Ur 1.028 (1.001-1.035); Squamous Epithelial Cell Urine None Seen /hpf (Few); Urobilinogen Urine 0.2 mg/dL (<2.0); WBC Urine >100 /hpf (0-3)
[2024-06-18 01:59] LABS: Basophils Absolute Auto 0.1 K/mm3 (0.0-0.1); Basophils Percent Auto 0.5 % (0.2-1.2); Eosinophils Absolute Auto 0.1 K/mm3 (0-0.3); Hematocrit 40.2 % (37.0-47.0); Hemoglobin 13.4 g/dL (12.0-15.0); Immature Granulocyte Absolute 0.03 K/mm3 (0.00-0.031); Immature Granulocyte Percent A 0.3 % (0-0.5); Lymphocytes Absolute Auto 3.89 K/mm3 (0.9-3.2); Lymphocytes Percent Auto 34.8 % (18.3-44.2); Mean Corpuscular HGB Conc 33.3 g/dl (32-36); Mean Corpuscular Hemoglobin 31.9 pg (26-34); Mean Corpuscular Volume 95.7 fl (80-100); Mean Platelet Volume 9.1 fl (7.4-10.4); Monocytes Absolute Auto 0.8 K/mm3 (0.1-0.6); Monocytes Percent Auto 6.8 % (2.6-8.5); Neutrophils Absolute Auto 6.3 K/mm3 (1.3-6.7); Neutrophils Percent Auto 56.6 % (45.5-73.1); Platelet Count Result 320 k/mm3 (150-375); Red Cell Distribution Width 12.7 % (11.5-14.5); White Blood Count 11.2 K/mm3 (4.5-10.0)
[2024-06-18 02:13] LABS: Amphetamine Screen Urine Negative (Negative); Barbiturate Screen Urine Negative (Negative); Benzodiazepines Screen Urine Negative (Negative); Cannabinoid Screen Urine Negative (Negative); Cocaine Screen Urine Negative (Negative); Methadone Screen Urine Negative (Negative); Opiate Screen Urine Negative (Negative); Phencyclidine Screen Urine Negative (Negative)
[2024-06-18 02:13] LABS: Alanine Aminotransferase 13 U/L (6-35); Albumin Level 4.6 g/dL (3.5-5.1); Alkaline Phosphatase 59 U/L (38-126); Anion Gap 12 mmol/L (4-12); Aspartate Amino Transferase 17 U/L (14-36); Bilirubin,Total 0.5 mg/dL (0.2-1.3); Blood Urea Nitrogen 12 mg/dL (7-17); Calcium 9.4 mg/dL (8.4-10.2); Carbon Dioxide 25 mmol/L (22-30); Chloride 104 mmol/L (98-107); Estimated Glomerular Filt Rate > 60; Ethanol < 10 mg/dL (<10); Glucose 89 mg/dL (65-110); Potassium 3.5 mmol/L (3.4-5.0); Sodium 141 mmol/L (137-145)
[2024-06-18 02:35] LABS: Influenza A QL RT-PCR Negative (Negative); Influenza B QL RT-PCR Negative (Negative); RSV RNA, RT-PCR Negative (Negative); SARS-CoV-2 RNA PCR Negative (Negative)
--- OUTSIDE RECORDS SUMMARY | 2024-06-18 03:22 | XMS_ITS | Encounter Summary ---
Author Organization [facility] Address [address] [place] [address] Care Team Providers Care Metal Patternmaker Apprentice Name Role Phone Kody Francisco MD Primary Care Provider [phone] Encounter Details Date Type Department Care Team (Late st Contact Info) Description 06/08/2024 Results Follow-Up [facility] Primary Care [address] [address] Chaitanya Vickers PA-C [address] [place] [phone] CBC WITH DIFFERENTIAL, HEMOGLOBIN A1C, TSH [...] Sex Assigned at Female 05/31/2024 8:03 AM CHIEF ENTERPRISE ARCHITECT Legal Sex Female 1:02 PM CDT Gender Identity Not on file Sexual Orientation Straight 05/31/2024 8: 03 AM CHIEF ENTERPRISE ARCHITECT documented as of this encounter Miscellaneous Notes * Result Encounter Note - Chaitanya Vickers PA-C - 06/08/2024 8:59 AM CST LDL 130 and HDL 39. Recommended low-cholesterol diet and regular exercise. Additional labs within normal limits. F ENTERPRISE ARCHITECT documented in this encounter Plan of Treatment Upcoming Encounters Date Type Department Care Team (Late st Contact Info) Description 08/24/2024 9:30 AM CDT Office Visit [facility] Minimally Invasive Gynecology [address] [place] [address] Boone Tanner MD [address] [place] [address] 09/04/2024 9:00 AM CDT Office Visit [facility] Primary Care [facility] [address] [place] [phone] Chaitanya Vickers PA-C [address] [address] documented as of this encounter Visit Diagnoses Not on filedocumented in this encounter Care Teams Metal Patternmaker Apprentice Relationship Specialty Start Date End Date Kody Francisco MD [address] [place] [phone] PCP - General Internal Medicine 06/07/24 documented as of this encounter
--- OUTSIDE RECORDS SUMMARY | 2024-06-18 03:22 | XMS_ITS | Clinical Summary ---
Author Organization [facility] Address [address] [facility] [place] [address] Care Team Providers Care Film Composer Name Role Phone Caranga Karla BANSAL-SCRAP METAL BURNER Primary Care Provider + Source Comments [facility],non-owned Affiliates and Associated Physician Practices is amultiple site organization consisting of ambulatory clinics and hospital sitesin [place], [place], [place] and [place]. This disclosure is being madepursuant to the Care Everywhere program and may not contain all information available regarding this patient. Last updated 18.[facility] Allergies No known active allergies Medications * [...] Department Care Team Description 06/04/2024 3:01 AM [facility]ER - 06/04/2024 4:12 AM [facility] [place] [address] Damion Osullivan MD Syncope and collapse (Primary [...] Comments Blood Pressure 108/61 06/04/2024 2:45 AM [facility] BURNISHER Pulse 78 06/04/2024 2:45 AM EDGE BURNISHER Temperature 36.6 C (97.8 F) 06/04/2024 2:45 AM [facility]URNISHER Respiratory Rate 20 06/04/2024 2:45 AM ED[facility] BURNISHER Oxygen Saturation 99% 06/04/2024 2:45 AM ED[facility] BURNISHER Inhaled Oxygen Concentration - - Weight 72.9 [...] CARDIAC EKG ORDER 06/05/2024 8:3 8 PM [facility]ER SARS-COV-2 (COVID-19) FLU A/B RSV PCR RAPID STAT 06/04/2024 3:43 AM [facility]ER HCG BETA BLOOD QUANTITATIVE STAT 06/03/2024 9:50 PM [facility]ER TROPONIN-I HIGH SENSITIVE STAT 06/03/2024 9:50 PM [facility] BURN[facility]ER COMPREHENSIVE METABOLIC PANEL STAT 06/03/2024 9:50 PM [facility] BURNISHER CBC W AUTO DIFFERENTIAL STAT 06/03/2024 9:50 PM [facility] BURN[facility]ER EKG 12-LEAD STAT 06/03/2024 9:45 PM [facility]ER Syncope and collapse URINALYSIS REFLEX MICROSCOPIC REFLEX CULTURE STAT 06/03/2024 9:14 PM [facility]ER XR CHEST 2VW STAT 06/03/2024 9:09 PM [facility]URN[facility]ER Syncope and collapse from Last 3 Months Results * CARDIAC EKG ORDER (06/05/2024 8:38 PM EDGE BURNISHER) Narrative 06/05/2024 8:38 PM [facility]URN[facility]ER Ordered by an unspecified provider. Scanned Document CARDIAC SERVICES ORD ERABLES * SARS-COV-2 (COVID-19) FLU A/B RSV PCR RAPID (06/04/2024 3:43 AM EDGE BURNISHER) COVID-19 PCR Not detected Not detected 06/04/19 4:26 AM [facility] Influenza A PCR Not detected Not detected 06/04/2024 4:26 AM [facility] B[facility]ER [facility] Influenza B PCR Not detected Not detected 06/04/2024 4:26 AM [facility] RSV PCR Not detected Not detected 06/04/2024 4:26 AM [facility] Microbiology SPECIMEN FROM NASOPHARYNGEAL STRUCTURE / Unknown Collection / Unknown 06/04/2024 3:43 AM [facility]ER 06/04/2024 3:48 AM ED[facility] BURN[facility]ER [facility] - 06/04/2024 4:26 AM ED[facility] BURNISHER This nucleic acid amplification assay has been [...] - MICROBIO LOGY ORDERABLES Performing Organization Address City/[facility]/ZIP Co de Phone Number [facility] [address] [place] [phone] * TROPONIN-I HIGH SENSITIVE (06/03/2024 9:50 PM EDGE BURNISHER) [facility] Troponin I High Sensitive <3 <=14 ng/L 06/03/2024 10:20 PM [facility]ER [facility] Blood BLOOD SPECIMEN / Unknown Venipuncture / Unknown 06/03/2024 9:50 PM [facility] BURN[facility]ER 06/03/2024 9:56 PM [facility] - CHEMISTRY SHAN JOYCE Performing Organization Address [facility]/ZIP Co de Phone Number [facility] [address] [place] [phone] * (ABNORMAL) CBC W AUTO DIFFERENTIAL (06/03/2024 9:50 PM EDGE BURNISHER) [facility] WBC 6.5 4.0 - 10.7 x10E9/L 06/03/2024 9:59 PM [facility]URN[facility]ER [facility] RBC Count 4.15 3.90 - 5.20 x10E12/L 06/03/2024 9:59 PM [facility]ER [facility] Hemoglobin 12.8 11.9 - 15.8 g/dL 06/03/2024 9:59 PM [facility]ER [facility] Hematocrit 37.7 34.8 - 46.1 % 06/03/2024 9:59 PM [facility]URN[facility]ER [facility] MCV 90.8 80.0 - 98.0 fL 06/03/2024 9:59 PM [facility] MCH 30.8 26.7 - 33.6 pg 06/03/2024 9:59 PM [facility] MCHC 34.0 31.7 - 36.3 g/dL 06/03/2024 9:59 PM [facility] RDW-CV 12.2 11.3 - 14.8 % 06/03/2024 9:59 PM [facility] Platelet Count 296 150 - 420 x10E9/L 06/03/2024 9:59 PM [facility] MPV 9.1 7.8 - 11.4 fL 06/03/2024 9:59 PM [facility] Neutrophil % 41.4 41.0 - 74.0 % 06/03/2024 9:59 PM [facility] Lymphocyte % 47.7(H) 17.0 - 47.0 % 06/03/2024 9:59 PM [facility] Monocyte % 8.0 3.0 - 11.0 % 06/03/2024 9:59 PM [facility] Eosinophil % 1.8 0.0 - 7.0 % 06/03/2024 9:59 PM [facility] Basophil % 0.9 0.0 - 1.6 % 06/03/2024 9:59 PM [facility] Immature Granulocytes % 0.2 0.0 - 1.0 % 06/03/2024 9:59 PM [facility] Neutrophil Absolute 2.71 1.60 - 7.50 x10E9/L 06/03/2024 9:59 PM [facility] Lymphocyte Absolute 3.12 1.00 - 4.40 x10E9/L 06/03/2024 9:59 PM [facility] Monocyte Absolute 0.52 0.15 - 1.00 x10E9/L 06/03/2024 9:59 PM [facility] Eosinophil Absolute 0.12 0.00 - 0.60 x10E9/L 06/03/2024 9:59 PM [facility] Basophil Absolute 0.06 0.00 - 0.13 x10E9/L 06/03/2024 9:59 PM [facility] Blood BLOOD SPECIMEN / Unknown Venipuncture / Unknown 06/03/2024 9:50 PM [facility]URN[facility]ER 06/03/2024 9:56 PM [facility] - HEMATOLOGY ORD ERABLES [facility] [address] [place] [address] * (ABNORMAL) COMPREHENSIVE METABOLIC PANEL (06/03/2024 9:50 PM ED[facility] BURNISHER) [facility] Glucose 124(H) 70 - 99 mg/dL 06/03/2024 10:12 PM [facility] Sodium 137 136 - 145 mmol/L 06/03/2024 10:12 PM [facility] Potassium 3.8 3.5 - 5.1 mmol/L 06/03/2024 10:12 PM [facility] Chloride 112(H) 98 - 107 mmol/L 06/03/2024 10:12 PM [facility] CO2 18(L) 22 - 29 mmol/L 06/03/2024 10:12 PM [facility] Calcium 8.8 8.4 - 10.4 mg/dL 06/03/2024 10:12 PM [facility] Anion Gap 7 6 - 16 mmol/L 06/03/2024 10:12 PM [facility] BUN 12 5.3 - 18.7 mg/dL 06/03/2024 10:12 PM [facility] Creatinine 0.68 0.57 - 1.11 mg/dL 06/03/2024 10:12 PM [facility] Alkaline Phosphatase 65 40 - 150 U/L 06/03/2024 10:12 PM [facility] ALT 9 0 - 55 U/L 06/03/2024 10:12 PM [facility] AST 12 5 - 34 U/L 06/03/2024 10:12 PM [facility] Protein Total 7.1 6.4 - 8.3 gm/dL 06/03/2024 10:12 PM [facility] Albumin 4.1 3.4 - 5.0 gm/dL 06/03/2024 10:12 PM [facility] Bilirubin Total 0.5 0.2 - 1.2 mg/dL 06/03/2024 10:12 PM [facility] eGFR by CKD-EPI >90 >=90 mL/min/1.7 3 m2 06/03/2024 10:12 PM [facility]ER [facility] Blood BLOOD SPECIMEN / Unknown Venipuncture / Unknown 06/03/2024 9:50 PM [facility] BURNISHER 06/03/2024 9:56 PM [facility] - CHEMISTRY SHAN JOYCE Performing Organization Address [facility] de Phone Number [facility] [address] [place] [phone] * HCG BETA BLOOD QUANTITATIVE (06/03/2024 9:50 PM ED[facility] BURNISHER) Pathologist [facility] hCG Quantitative <2.42 mIU/mL 06/03/19 10:16 PM [facility] BURN[facility]ER [facility] Blood BLOOD SPECIMEN / Unknown Venipuncture / Unknown 06/03/2024 9:50 PM [facility] BURNISHER 06/03/2024 9:56 PM [facility] BURNISHER Narrative [facility] - 06/03/2024 10:16 PM [facility] BURN[facility]ER hCG Reference Range, mIU/mL: Non Females 0-6.0 [...] - CHEMISTRY SHAN JOYCE Performing Organization Address [facility] de Phone Number [facility] [address] [place] [phone] * EKG 12-LEAD (06/03/2024 9:45 PM ED[facility] BURNISHER) Ventricular Rate 86 BPM [facility] Atrial Rate 86 BPM [facility] P-R Interval 154 ms [facility] QRS Duration ms 76 ms [facility] Q-T Interval ms 344 ms [facility] QTC Calculation (Bezet) 411 ms [facility]USE Calculated P [place] 58 degrees [facility] MUSE Calculated R [place] 83 degrees [facility] MUSE Calculated T [place] 63 degrees [facility] Interpretation EKG NORMAL SINUS RHYTHM NORMAL ECG NO PREVIOUS ECGS AVAILABLE Confirmed by MD North, Rui ([id number]) on 06/04/2024 7:36:29 AM [facility] 06/03/2024 9:45 PM [facility]URN[facility]ER 06/04/2024 7:36 AM [facility] ECG ORDERABLES [facility] * URINALYSIS REFLEX MICROSCOPIC REFLEX CULTURE (06/03/2024 9:14 PM [facility] BURNISHER) Color UA Yellow Yellow, Straw 06/03/2024 9:22 PM [facility] Clarity UA Clear Clear 06/03/2024 9:22 PM [facility] Glucose UA Normal Normal 06/03/2024 9:22 PM [facility] Bilirubin UA Negative Negative 06/03/2024 9:22 PM [facility] Ketone UA Negative Negative 06/03/2024 9:22 PM [facility] Specific [place] UA 1.023 1.005 - 1.030 06/03/2024 9:22 PM [facility] Blood UA Negative Negative 06/03/2024 9:22 PM [facility] pH UA 5.5 5.0 - 9.0 pH 06/03/2024 9:22 PM [facility] Protein UA Negative Negative 06/03/2024 9:22 PM [facility] Urobilinogen UA Normal Normal mg/dL 025 9:22 PM [facility] Nitrite UA Negative Negative 06/03/2024 9:22 PM [facility] Leukocyte UA Negative Negative 06/03/2024 9:22 PM [facility] Urine URINE SPECIMEN OBTAINED BY CLEAN CATCH PROCEDURE / Unknown Collection / Unknown 06/03/2024 9:14 PM [facility]URN[facility]ER 06/03/2024 9:19 PM [facility] BURN[facility]ER Narrative [facility] - 06/03/2024 9:22 PM [facility] - URINALYSIS ORD ERABLES [facility] [address] [place] [address] * XR CHEST 2VW (06/03/2024 9:09 PM [facility] BURN[facility]ER) Anatomical Region Laterality Modality Chest Radiographic Peg ging 06/04/2024 10:0 1 AM [facility]URN[facility]ER Impressions 06/04/2024 10:01 AM [facility] BURN[facility]ER IMPRESSION: No active cardiac or pulmonary disease. > Interpreting Provider: Sheldon Curry MD on 06/04/2024 10:01 AM Narrative 06/04/2024 10:01 AM [facility]ER PROCEDURE: XR CHEST 2VW DATE/TIME OF EXAM: [...] RDERABLES from Last 3 Months Care Teams Film Composer Relationship Specialty Start Date End Date Karla Galan APRN-SCRAP METAL BURNER [address] [id number] PCP - General Nurse Practitioner 01/09/20
--- OUTSIDE RECORDS SUMMARY | 2024-06-18 03:22 | XMS_ITS | Clinical Summary ---
Author Organization [facility] Address [address] [place] [address] Care Team Providers Care Mechanic Sound Technician Name Role Phone Kody Francisco MD Primary Care Provider [phone] Allergies No known active allergies Medications escitalopram [...] Department Care Team Description 06/08/2024 Results Follow-Up [place] [address] [facility] [address] [place] [phone] Chaitanya Vickers PA-C CBC WITH DIFFERENTIAL, HEMOGLOBIN A1C, TSH REFLEXIVE, Additional followed-up results: 2 06/07/2024 11:00 AM DRAY TRUCK DRIVER Office Visit [facility] [address] [place] [phone] Chaitanya Vickers PA-C Encounter for medical examination [...] STL ABSTRACTION Provider, Abstract 05/31/2024 11:55 AM DRAY TRUCK DRIVER - 05/31/2024 1:27 PM DRAY TRUCK DRIVER Emergency [facility] Emergency Department [address] [place] [address] Martha Manuel MD Generalized abdominal pain (Primary Dx); Interstitial cystitis; Irritable bowel syndrome with both constipation and diarrhea; Endometriosis Discharge Disposition: Home or Self Care 05/31/2024 Telephone [facility] Gastroenterology [facility] [address] [place] [address] Provider, Abstract Returning pt's call [...] PERTUSSIS, HEPATITIS B, AND INACTIVATED POLIOVIRUS VACCINE ([id number]), 0.5ML, IM 07/15/2005,2004,2004,03/02 (VARIVAX)(12 MOS UP)VARICELL A [...] Sex Assigned at Female 05/31/2024 8:03 AM DRAY TRUCK DRIVER Legal Sex Female 1:02 PM CDT Gender Identity Not on file Sexual Orientation Straight 05/31/2024 8: 03 AM DRAY TRUCK DRIVER Last Filed Vital Signs Vital Sign Reading Time Taken Comments Blood Pressure 120/64 06/07/2024 10:52 AM DRAY TRUCK DRIVER Pulse 95 06/07/2024 10:52 AM DRAY TRUCK DRIVER Temperature 36.2 C (97.1 F) 06/07/2024 10:52 AM DRAY TRUCK DRIVER Respiratory Rate 18 05/31/2024 1:27 PM DRAY TRUCK DRIVER Oxygen Saturation 98% 06/07/2024 10:52 AM DRAY TRUCK DRIVER Inhaled Oxygen Concentration - - Weight 85.5 kg (188 lb 6.4 oz) 06/07/2024 10:52 AM DRAY TRUCK DRIVER Height 162.6 cm (5' 4 ) 06/07/2024 10:52 AM DRAY TRUCK DRIVER Body Mass Index 32.34 06/07/2024 10:52 AM DRAY TRUCK DRIVER Plan of Treatment Upcoming Encounters Date Type Department Care Team (Late st Contact Info) Description 08/24/2024 9:30 AM CDT Office Visit [facility] Minimally Invasive Gynecology [address] [facility] [address] [address] [place] [address] Boone Tanner MD [address] [place] [address] 09/04/2024 9:00 AM CDT Office Visit [facility] Primary Care [address] [address] Chaitanya Vickers PA-C [address] [place] [phone] Health Maintenance Due Date Last Done [...] COMPREHENSIVE METABOLIC PANEL Routine 06/07/2024 11:30 AM DRAY TRUCK DRIVER Encounter for medical examination to establish care LIPID PANEL Routine 06/07/2024 11:30 AM DRAY TRUCK DRIVER Encounter for medical examination to establish care Screening for lipid disorders TSH REFLEXIVE Routine 06/07/2024 11:30 AM DRAY TRUCK DRIVER Encounter for medical examination to establish care Generalized anxiety disorder Screening for thyroid disorder HEMOGLOBIN A1C Routine 06/07/2024 11:30 AM DRAY TRUCK DRIVER Encounter for medical examination to establish care Screening for diabetes mellitus CBC WITH DIFFERENTIAL Routine 06/07/2024 11:30 AM DRAY TRUCK DRIVER Encounter for medical examination to establish care EKG 12-LEAD Stat 05/31/2024 12:47 PM DRAY TRUCK DRIVER POC GLUCOSE Stat 05/31/2024 12:09 PM DRAY TRUCK DRIVER URINALYSIS W/REFLEX MICROSCOPIC Stat 05/31/2024 8:51 AM DRAY TRUCK DRIVER COMPREHENSIVE METABOLIC PANEL Stat 05/31/2024 8:51 AM DRAY TRUCK DRIVER CBC WITH DIFFERENTIAL Stat 05/31/2024 8:51 AM DRAY TRUCK DRIVER from Last 3 Months Results * TSH REFLEXIVE (06/07/2024 11:30 AM DRAY TRUCK DRIVER) TSH 1.05 mIU/L [facility] Comment: Reference Range > or = 20 Years 0.40-4.50 Ranges First trimester 0.26-2.66 Second trimester 0.55-2.73 Third trimester 0.43-2.91 FASTING:YES FASTING: YES Test Performed at: [email or web address] [address] [address] Rasta Alfaro MD Blood 06/07/2024 11:3 0 AM DRAY TRUCK DRIVER 06/07/2024 11:33 AM DRAY TRUCK DRIVER us Chaitanya Vickers PA-C CHEMISTRY ORDERABL ES Final Result [facility] [phone] [email or web address] [address] [place] [address] * CBC WITH DIFFERENTIAL (06/07/2024 11:30 AM DRAY TRUCK DRIVER) Only the most recent of2 resultswithin the [...] Comment: FASTING:YES FASTING: YES Test Performed at: [email or web address] [address] [facility] [place] [address] Rasta Alfaro MD Blood 06/07/2024 11:3 0 AM DRAY TRUCK DRIVER 06/07/2024 11:33 AM DRAY TRUCK DRIVER Chaitanya Vickers PA-C HEMATOLOGY ORDERAB LES Final Result Performing Organization Address City/[facility]/ZIP Co de Phone Number [facility] [phone] [facility] [address] [place] [address] * HEMOGLOBIN A1C (06/07/2024 11:30 AM DRAY TRUCK DRIVER) HEMOGLOBIN A1C 4.7 <5.7 % of total Hgb [facility] Comment: For the purpose of screening for the presence of diabetes: <5.7% Consistent with the absence of diabetes 5.7-6.4% Consistent with increased risk for diabetes (prediabetes) > or =6.5% Consistent with diabetes This assay result is consistent with a decreased risk of diabetes. Currently, no consensus exists regarding use of hemoglobin A1c for diagnosis of diabetes in children. According to [place] Diabetes Association (ADA) guidelines, hemoglobin A1c <7.0% represents optimal control in non- diabetic patients. Different metrics may apply to specific patient populations. Standards of Medical Care in Diabetes(ADA). ESTIMATED AVERAGE GLUCOSE (MG/DL) 88 mg/dL [facility] ESTIMATED AVERAGE GLUCOSE (MMOL/L) 4.9 mmol/L [facility] Comment: FASTING:YES FASTING: YES Test Performed at: [facility] [address] [facility] [place] [address] Rasta Alfaro MD Blood 06/07/2024 11:3 0 AM DRAY TRUCK DRIVER 06/07/2024 11:33 AM DRAY TRUCK DRIVER Chaitanya Vickers PA-C CHEMISTRY ORDERABL ES Final Result [facility] [phone] [facility] [address] [place] [address] * (ABNORMAL) LIPID PANEL (06/07/2024 11:30 AM DRAY TRUCK DRIVER) CHOLESTEROL 171 <200 mg/dL [email or web address] HDL 39(L) > OR = 50 [...] LDL-C. Harpreet SS et al. DANIEL. 2013;310(19): 8131-9196 (http://education.Inventorum/faq/WCC736) CHOL/HDL RATIO 4.4 <5.0 (calc) [facility] NON-HDL CHOLESTEROL 132(H) <130 mg/dL (calc) [email or web address] Comment: For patients with diabetes plus 1 major ASCVD risk factor, treating to a non-HDL-C goal of <100 mg/dL (LDL-C of <70 mg/dL) is considered a therapeutic option. Test Performed at: [facility] [address] [place] [id number] Rasta Alfaro MD Blood 06/07/2024 11:3 0 AM DRAY TRUCK DRIVER 06/07/2024 11:33 AM DRAY TRUCK DRIVER us Chaitanya Vickers PA-C CHEMISTRY ORDERABL ES Final Result [facility] [email or web address] [address] * COMPREHENSIVE METABOLIC PANEL (06/07/2024 11:30 AM DRAY TRUCK DRIVER) Only the most recent of2 resultswithin the time period is included. GLUCOSE 87 65 - 99 mg/dL [facility] Comment: Fasting reference interval BUN 8 [...] Comment: FASTING:YES FASTING: YES Test Performed at: [facility] [address] [place] [address] Rasta Alfaro MD Blood 06/07/2024 11:3 0 AM DRAY TRUCK DRIVER 06/07/2024 11:33 AM DRAY TRUCK DRIVER us Chaitanya Vickers PA-C CHEMISTRY ORDERABL ES Final Result [facility] [phone] [email or web address] [address] [address] [address] * EKG 12-LEAD (05/31/2024 12:47 PM DRAY TRUCK DRIVER) 05/31/2024 12:4 7 PM DRAY TRUCK DRIVER Narrative INTERFACE SYSTEM - 05/31/2024 1:58 PM DRAY TRUCK DRIVER [facility] [address] [place] [address] Test Date: 2024-05-31 Pat Name: [facility] Department: 40 Room: 30 30 Gender: Female Assistant Facility Manager: josé miguel : 2005 Requested By: MARTHA MANUEL Order Number: [id number] Reading MD: Henrry Pablo Measurements Intervals [place] Rate: 93 P: 17 PA: 161 QRS: 10 QRSD: 81 T: 53 QT: 352 QTc: 438 Interpretive Statements Sinus rhythm Electronically Signed On 05-31-2024 13:58:32 DRAY TRUCK DRIVER by Henrry Pablo Procedure Note Henrry Pablo MD - 05/31/2024 [facility] [address] [place] [address] Test Date: 2024-05-31 Pat Name: [facility] Department: 40 Room: 30 30 Gender: Female Assistant Facility Manager: [email or web address] : 2005 Requested By: MARTHA MANUEL Order Number: [id number] Reading MD: Henrry Pablo Measurements Intervals [place] Rate: 93 P: 17 PA: 161 QRS: 10 QRSD: 81 T: 53 QT: 352 QTc: 438 Interpretive Statements Sinus rhythm Electronically Signed On 05-31-2024 13:58:32 DRAY TRUCK DRIVER by Henrry Pablo us Martha Manuel MD ECG ORDERABLES Final Result INTERFACE SYSTEM Refer to clinic/hospital department * POC GLUCOSE (05/31/2024 12:09 PM DRAY TRUCK DRIVER) GLUCOSE POC 94 74 - 99 mg/dL 05/31/2024 12:09 PM DRAY TRUCK DRIVER [facility] SPECIMEN SOURCE, GLUCOSE POC Whole Blood 05/31/2024 12:09 PM DRAY TRUCK DRIVER [facility] SERVICES - [facility] COMMENT, GLU POC Notified RN/MD 05/31/2024 12:09 PM [facility] Blood, whole 05/31/2024 12:0 9 PM DRAY TRUCK DRIVER 05/31/2024 12:17 PM DRAY TRUCK DRIVER us Interface Provider Poct POINT OF CARE TESTING Fi nal Result [facility] [employer] [facility] CLIA# [id number] [address] [place] [address] * (ABNORMAL) URINALYSIS WITH REFLEX MICROSCOPIC (05/31/2024 8:51 AM DRAY TRUCK DRIVER) COLOR UA Yellow Pale to Dark Yellow 05/31/2024 9:35 AM [facility] [employer] [facility] CLARITY UA Slightly Cloudy(A) Clear 05/31/2024 9:35 AM [facility] [employer] SERVICES [facility] SPECIFIC GRAVITY UA 1.027 1.003 - 1.035 05/31/2024 9:35 AM [facility] [employer] SERVICES [facility] PH UA 6.0 5.0 - 8.0 05/31/2024 9:35 AM [facility] [employer] [facility] LEUKOCYTE ESTERASE UA Negative Negative 05/31/2024 9:35 AM [facility] [employer] [facility] NITRITE UA Negative Negative 05/31/2024 9:35 AM [facility] [employer] [facility] PROTEIN UA 1+(A) Negative 05/31/2024 9:35 AM [facility] [employer] SERVICES [facility] GLUCOSE UA Negative Negative 05/31/2024 9:35 AM [facility] [employer] SERVICES [facility] KETONES UA Negative Negative 05/31/2024 9:35 AM [facility] [employer] SERVICES [facility] UROBILINOGEN UA Normal <2.0 mg/dL 9:35 AM [facility] [employer] LABORATORY SERVICES [facility] BILIRUBIN UA Negative Negative 05/31/2024 9:35 AM [facility] [employer] SERVICES [facility] BLOOD UA Negative Negative 05/31/2024 9:35 AM DRAY TRUCK DRIVER [employer] LABORATORY SERVICES [facility] WBC UA 0-2 0 - 2 /hpf 05/31/2024 9:35 AM DRAY TRUCK DRIVER [employer] [facility] RBC UA 0-2 0 - 2 /hpf 05/31/2024 9:35 AM DRAY TRUCK DRIVER [employer] [facility] BACTERIA UA 2+(A) Negative /hpf 05/31/2024 9:35 AM DRAY TRUCK DRIVER [employer] LABORATORY [facility] EPITHELIAL CELLS, URINE 6-10(A) 0 - 5 /hpf 05/31/2024 9:35 AM DRAY TRUCK DRIVER [employer] LABORATORY SERVICES - [facility] Urine URINE SPECIMEN OBTAINED BY CLEAN CATCH PROCEDURE / Unknown Collection / Unknown 05/31/2024 8:51 AM DRAY TRUCK DRIVER 05/31/2024 9:07 AM DRAY TRUCK DRIVER Martha Manuel MD URINE ORDERABLES Final Result [facility] [employer] [facility]# [id number] [address] [facility] [place] [address] from Last 3 Months Insurance OUT OF STATE [facility] BLUE ACCESS/TRUE BLUE PPO Care Teams Mechanic Sound Technician Relationship Specialty Start Date End Date Kody Francisco MD [address] [address] PCP - General Internal Medicine 06/07/24
--- OUTSIDE RECORDS SUMMARY | 2024-06-18 03:22 | XMS_ITS | Referral Summary ---
Author Organization [facility] Address [address] [place] [address] Care Team Providers Care Senior Care Assistant Name Role Phone Karla Galan NIMISHA-SYRUP MAKER COOK Primary Care Provider + Source Comments [facility],non-owned Affiliates and Associated Physician Practices is amultiple site organization consisting of ambulatory clinics and hospital sitesin [place], [place], [place] and [place]. This disclosure is being madepursuant to the Care Everywhere program and may not contain all information available regarding this patient. Last updated 18.[facility] Encounters Date Type Department Care Team Description 06/04/2024 3:01 AM CALENDER ROLL PRESS OPERATOR - 06/04/2024 4:12 AM CALENDER ROLL PRESS OPERATOR Emergency ER at [address] [address] Damion Osullivan MD Syncope and [...] Comments Blood Pressure 108/61 06/04/2024 2:45 AM CALENDER ROLL PRESS OPERATOR Pulse 78 06/04/2024 2:45 AM CALENDER ROLL PRESS OPERATOR Temperature 36.6 C (97.8 F) 06/04/2024 2:45 AM CALENDER ROLL PRESS OPERATOR Respiratory Rate 20 06/04/2024 2:45 AM CALENDER ROLL PRESS OPERATOR Oxygen Saturation 99% 06/04/2024 2:45 AM CALENDER ROLL PRESS OPERATOR Inhaled Oxygen Concentration - - Weight 72.9 kg (160 lb 11.5 oz) 01/09/2020 2:10 PM CDT Height 162.5 cm (5' 3.98 ) 01/09/2020 2:10 PM CD T Body Mass Index 27.61 01/09/2020 2:10 PM CDT Plan of Treatment Not on file Procedures Procedure Name Priority Date/Time Associated Diagnosis Comments CARDIAC EKG ORDER 06/05/2024 8:3 8 PM CALENDER ROLL PRESS OPERATOR SARS-COV-2 (COVID-19) FLU A/B RSV PCR RAPID STAT 06/04/2024 3:43 AM CALENDER ROLL PRESS OPERATOR HCG BETA BLOOD QUANTITATIVE STAT 06/03/2024 9:50 PM CALENDER ROLL PRESS OPERATOR TROPONIN-I HIGH SENSITIVE STAT 06/03/2024 9:50 PM CALENDER ROLL PRESS OPERATOR COMPREHENSIVE METABOLIC PANEL STAT 06/03/2024 9:50 PM CALENDER ROLL PRESS OPERATOR CBC W AUTO DIFFERENTIAL STAT 06/03/2024 9:50 PM CALENDER ROLL PRESS OPERATOR EKG 12-LEAD STAT 06/03/2024 9:45 PM CALENDER ROLL PRESS OPERATOR Syncope and collapse URINALYSIS REFLEX MICROSCOPIC REFLEX CULTURE STAT 06/03/2024 9:14 PM CALENDER ROLL PRESS OPERATOR XR CHEST 2VW STAT 06/03/2024 9:09 PM CALENDER ROLL PRESS OPERATOR Syncope and collapse from Last 3 Months Results * CARDIAC EKG ORDER (06/05/2024 8:38 PM CALENDER ROLL PRESS OPERATOR) Narrative 06/05/2024 8:38 PM CALENDER ROLL PRESS OPERATOR Ordered by an unspecified provider. Scanned Document CARDIAC SERVICES ORD ERABLES * SARS-COV-2 (COVID-19) FLU A/B RSV PCR RAPID (06/04/2024 3:43 AM CALENDER ROLL PRESS OPERATOR) COVID-19 PCR Not detected Not detected 06/04/19 4:26 AM CALENDER ROLL PRESS OPERATOR [facility] Influenza A PCR Not detected Not detected 06/04/2024 4:26 AM CALENDER ROLL PRESS OPERATOR [facility] Influenza B PCR Not detected Not detected 06/04/2024 4:[address] [facility] RSV PCR Not detected Not detected 06/04/2024 4:[address] [facility] Microbiology SPECIMEN FROM NASOPHARYNGEAL STRUCTURE / Unknown Collection / Unknown 06/04/2024 3:43 AM CALENDER ROLL PRESS OPERATOR 06/04/2024 3:48 AM CALENDER ROLL PRESS OPERATOR Narrative [facility] - 06/04/2024 4:26 AM CALENDER ROLL PRESS OPERATOR This nucleic acid amplification assay has [...] Osullivan MD LAB - MICROBIO LOGY ORDERABLES [facility] [address] [place] [address] * TROPONIN-I HIGH SENSITIVE (06/03/2024 9:50 PM CALENDER ROLL PRESS OPERATOR) Troponin I High Sensitive <3 <=14 ng/L 06/03/2024 10:20 PM CALENDER ROLL PRESS OPERATOR [facility] Blood BLOOD SPECIMEN / Unknown Venipuncture / Unknown 06/03/2024 9:50 PM CALENDER ROLL PRESS OPERATOR 06/03/2024 9:56 PM CALENDER ROLL PRESS OPERATOR Fannie FAUST LAB - CHEMISTRY SHAN JOYCE [facility] [address] [place] [address] * (ABNORMAL) CBC W AUTO DIFFERENTIAL (06/03/2024 9:50 PM CALENDER ROLL PRESS OPERATOR) [facility] WBC 6.5 4.0 - 10.7 x10E9/L 06/03/2024 9:59 PM CALENDER ROLL PRESS OPERATOR [facility] RBC Count 4.15 3.90 - 5.20 x10E12/L 06/03/2024 9:[address] [facility] Hemoglobin 12.8 11.9 - 15.8 g/dL 06/03/2024 9:[address] [facility] Hematocrit 37.7 34.8 - 46.1 % 06/03/2024 9:[address] [facility] MCV 90.8 80.0 - 98.0 fL 06/03/2024 9:[address] [facility] MCH 30.8 26.7 - 33.6 pg 06/03/2024 9:[address] [facility] MCHC 34.0 31.7 - 36.3 g/dL 06/03/2024 9:[address] [facility] RDW-CV 12.2 11.3 - 14.8 % 06/03/2024 9:[address] [facility] Platelet Count 296 150 - 420 x10E9/L 06/03/2024 9:[address] [facility] MPV 9.1 7.8 - 11.4 fL 06/03/2024 9:[address] [facility] Neutrophil % 41.4 41.0 - 74.0 % 06/03/2024 9:[address] [facility] Lymphocyte % 47.7(H) 17.0 - 47.0 % 06/03/2024 9:[address] [facility] Monocyte % 8.0 3.0 - 11.0 % 06/03/2024 9:[address] [facility] Eosinophil % 1.8 0.0 - 7.0 % 06/03/2024 9:[address] [facility] Basophil % 0.9 0.0 - 1.6 % 06/03/2024 9:[address] [facility] Immature Granulocytes % 0.2 0.0 - 1.0 % 06/03/2024 9:[address] [facility] Neutrophil Absolute 2.71 1.60 - 7.50 x10E9/L 06/03/2024 9:[address] [facility] Lymphocyte Absolute 3.12 1.00 - 4.40 x10E9/L 06/03/2024 9:[address] [facility] Monocyte Absolute 0.52 0.15 - 1.00 x10E9/L 06/03/2024 9:[address] [facility] Eosinophil Absolute 0.12 0.00 - 0.60 x10E9/L 06/03/2024 9:[address] [facility] Basophil Absolute 0.06 0.00 - 0.13 x10E9/L 06/03/2024 9:[address] [facility] Blood BLOOD SPECIMEN / Unknown Venipuncture / Unknown 06/03/2024 9:50 PM CALENDER ROLL PRESS OPERATOR 06/03/2024 9:56 PM CALENDER ROLL PRESS OPERATOR Fannie FAUST LAB - HEMATOLOGY ORD ERABLES [facility] [address] [place] [address] * (ABNORMAL) COMPREHENSIVE METABOLIC PANEL (06/03/2024 9:50 PM CALENDER ROLL PRESS OPERATOR) [facility] Glucose 124(H) 70 - 99 mg/dL 06/03/2024 10:[address] [facility] Sodium 137 136 - 145 mmol/L 06/03/2024 10:[address] [facility] Potassium 3.8 3.5 - 5.1 mmol/L 06/03/2024 10:[address] [facility] Chloride 112(H) 98 - 107 mmol/L 06/03/2024 10:[address] [facility] CO2 18(L) 22 - 29 mmol/L 06/03/2024 10:[address] [facility] Calcium 8.8 8.4 - 10.4 mg/dL 06/03/2024 10:[address] [facility] Anion Gap 7 6 - 16 mmol/L 06/03/2024 10:[address] [facility] BUN 12 5.3 - 18.7 mg/dL 06/03/2024 10:[address] [facility] Creatinine 0.68 0.57 - 1.11 mg/dL 06/03/2024 10:[address] [facility] Alkaline Phosphatase 65 40 - 150 U/L 06/03/2024 10:[address] [facility] ALT 9 0 - 55 U/L 06/03/2024 10:[address] [facility] AST 12 5 - 34 U/L 06/03/2024 10:[address] [facility] Protein Total 7.1 6.4 - 8.3 gm/dL 06/03/2024 10:[address] [facility] Albumin 4.1 3.4 - 5.0 gm/dL 06/03/2024 10:[address] [facility] Bilirubin Total 0.5 0.2 - 1.2 mg/dL 06/03/2024 10:[address] [facility] eGFR by CKD-EPI >90 >=90 mL/min/1.7 3 m2 06/03/2024 10:[address] [facility] Blood BLOOD SPECIMEN / Unknown Venipuncture / Unknown 06/03/2024 9:50 PM CALENDER ROLL PRESS OPERATOR 06/03/2024 9:56 PM CALENDER ROLL PRESS OPERATOR Fannie FAUST LAB - CHEMISTRY SHAN JOYCE [facility] Organization Address City/State/[facility] Co de Phone Number [facility] [address] [place] [address] * HCG BETA BLOOD QUANTITATIVE (06/03/2024 9:50 PM CALENDER ROLL PRESS OPERATOR) Pathologist [facility] hCG Quantitative <2.42 mIU/mL 06/03/19 10:16 PM CALENDER ROLL PRESS OPERATOR [facility] Blood BLOOD SPECIMEN / Unknown Venipuncture / Unknown 06/03/2024 9:50 PM CALENDER ROLL PRESS OPERATOR 06/03/2024 9:56 PM CALENDER ROLL PRESS OPERATOR Narrative [facility] - 06/03/2024 10:16 PM CALENDER ROLL PRESS OPERATOR hCG Reference Range, mIU/mL: Non Females [...] MARIA DEL CARMEN Performing Organization Address [facility] Co de Phone Number [facility] [address] [place] [address] * EKG 12-LEAD (06/03/2024 9:45 PM CALENDER ROLL PRESS OPERATOR) Ventricular Rate 86 BPM [facility] Atrial Rate 86 BPM [facility] P-R Interval 154 ms [facility] QRS Duration ms 76 ms [facility] Q-T Interval ms 344 ms [facility] QTC Calculation (Bezet) 411 ms [facility] Calculated P [place] 58 degrees [facility] Calculated R [place] 83 degrees [facility] Calculated T [place] 63 degrees [facility] Interpretation EKG NORMAL SINUS RHYTHM NORMAL ECG NO PREVIOUS ECGS AVAILABLE Confirmed by MD North, Rui ([id number]) on 06/04/2024 7:36:29 AM [facility] MUSE 06/03/2024 9:45 PM CALENDER ROLL PRESS OPERATOR 06/04/2024 7:36 AM CALENDER ROLL PRESS OPERATOR Fannie FAUST ECG ORDERABLES Performing Organization Address [facility] Co de Phone Number [facility] * URINALYSIS REFLEX MICROSCOPIC REFLEX CULTURE (06/03/2024 9:14 PM CALENDER ROLL PRESS OPERATOR) Color UA Yellow Yellow, Straw 06/03/2024 9:22 PM CALENDER ROLL PRESS OPERATOR [facility] Clarity UA Clear Clear 06/03/2024 9:22 PM CALENDER ROLL PRESS OPERATOR [facility] Glucose UA Normal Normal 06/03/2024 9:22 PM CALENDER ROLL PRESS OPERATOR [facility] Bilirubin UA Negative Negative 06/03/2024 9:22 PM CALENDER ROLL PRESS OPERATOR [facility] Ketone UA Negative Negative 06/03/2024 9:[address] [facility] Specific [place] UA 1.023 1.005 - 1.030 06/03/2024 9:[address] [facility] Blood UA Negative Negative 06/03/2024 9:[address] [facility] pH UA 5.5 5.0 - 9.0 pH 06/03/2024 9:[address] [facility] Protein UA Negative Negative 06/03/2024 9:[address] [facility] Urobilinogen UA Normal Normal mg/dL 025 9:[address] [facility] Nitrite UA Negative Negative 06/03/2024 9:[address] [facility] Leukocyte UA Negative Negative 06/03/2024 9:[address] [facility] Urine URINE SPECIMEN OBTAINED BY CLEAN CATCH PROCEDURE / Unknown Collection / Unknown 06/03/2024 9:14 PM CALENDER ROLL PRESS OPERATOR 06/03/2024 9:19 PM CALENDER ROLL PRESS OPERATOR Narrative [facility] - 06/03/2024 9:22 PM CALENDER ROLL PRESS OPERATOR Fannie FAUST LAB - URINALYSIS ORD ERABLES Performing Organization Address City/State/[facility] Co de Phone Number [facility] [address] [place], [place] [id number] * XR CHEST 2VW (06/03/2024 9:09 PM CALENDER ROLL PRESS OPERATOR) Anatomical Region Laterality Modality Chest Radiographic Peg ging 06/04/2024 10:0 1 AM CALENDER ROLL PRESS OPERATOR Impressions 06/04/2024 10:01 AM CALENDER ROLL PRESS OPERATOR IMPRESSION: No active cardiac or pulmonary disease. > Interpreting Provider: Sheldon Curry MD on 06/04/2024 10:01 AM Narrative 06/04/2024 10:01 AM CALENDER ROLL PRESS OPERATOR PROCEDURE: XR CHEST 2VW DATE/TIME OF [...] RDERABLES from Last 3 Months Care Teams Senior Care Assistant Relationship Specialty Start Date End Date Karla Galan APRN-ELO [address] [facility] [address] [address] [place] [id number] PCP - General Nurse Practitioner 01/09/20
--- OUTSIDE RECORDS SUMMARY | 2024-06-18 03:22 | XMS_ITS | Encounter Summary ---
Author Organization [facility] Address [address] [place] [address] Care Team Providers Care Lead Driver Name Role Phone Elaine Hill MD Primary Care Provider [phone] Elaine Hill MD Primary Care Provider [phone] Karla Galan APRN-WARPER TENDER Primary Care Provider + Reason for Visit * Reason Onset Date Comments Results 06/07/2014 Encounter Details Date Type Department Care Team (Late st Contact Info) Description 06/07/2014 Telephone [facility] Pediatrics - Dermatology [address] [place] [address] Nicole Urbina MD [address] [facility] [address] [place] [address] Results Social History Tobacco Use Types Packs/Day [...] 1:13 PM CST Called patient's parent at [phone] (M) Discussed with her that outside consultation for the path lab at [facility] also concurredd with our benign findings for the biopsy. Mom appreciative of the phone call Henry Rascon MD IS NURSE * Telephone Encounter - Henry Rascon MD - 06/07/2014 10:36 AM CST Mom called back 1/2 hour later with more questions. Called her at [phone] Discussed the results with her in detail. 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 We have sent the specimen to another lab - [facility] for confirmation. Will follow up for the [...] appreciated the phone call Henry Rascon MD IS NURSE * Telephone Encounter - Henry Rascon MD - 06/07/2014 8:28 AM CST 06/07/2014 Called patient's parent at [phone] (M) Discussed the results of the biopsy with her dad Mr. Aroldo Villatoro [phone] (M) - Benign CMP (Not present at margin). 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 We have sent the specimen to another lab - [facility] for confirmation. Will follow up for the same Also discussed with dad to follow up in the clinic of the lesion recurs or they notice atypical changes at the biopsy site Dad stated understanding and appreciated the phone call Henry Rascon MD IS NURSE documented in this encounter Plan of Treatment Not on file documented as of this encounter Visit Diagnoses Not on filedocumented in this encounter Additional Health Concerns Infection Onset Date Last Indicated Resolved Time COVID-19 Under Investigation 06/04/2024 06/04/2024 06/04/2024 4:26 AM CRISIS NURSE documented as of this encounter Care Teams Lead Driver Relationship Specialty Start Date End Date Elaine Hill MD [address] [address] PCP - General 02/25/10 08/17/16 Elaine Hill MD [address] [address] PCP - General Pediatrics 08/18/16 01/08/20 Karla Galan APRN-WARPER TENDER [address] [address] PCP - General Nurse Practitioner 01/09/20 documented as of this encounter
--- OUTSIDE RECORDS SUMMARY | 2024-06-18 03:22 | XMS_ITS | Continuity of Care Document ---
Author Organization [facility] Address [address] [place] [address] Phone Care Team Providers Care Fitter'S Assistant Name Role Phone Tabitha PT, DPT, Irais [...] Diagnoses Date Provider Providers Copied on Encounter [facility], [place], [place], [id number], tel:[phone] [place] No Information Tabitha Pierre Referring Provider: Kumar Rivera [address], [place], [address]. tel:[phone] [facility] [address], [place], [place], [id number], tel:[phone] [place] No Information Lu Irais. . Referring Provider: Daysi [address] [address], [place], [place], [facility]. tel:[phone] [address], [place], [place], [id number], tel:[phone] [place] No Information Lu Irais. . Referring Provider: Daysi Blackburn [address] [address], [place], [place], [facility]. tel:[phone] [place] [address], [id number], tel:[phone] [place] No Information Lu Irais. . Referring Provider: Daysi Blackburn [address] [address], [place], [place], [facility]. tel:[phone], [place], [id number], tel:[phone] [place] No Information Lu Irais. . Referring Provider: Daysi Blackburn [address] [address], [place], [place], [facility]. tel:[phone], [id number], tel:[phone] [place] No Information Lu Irais. . Referring Provider: Daysi Blackburn [address] [address], [place], [place], [facility]. tel:[phone] Family History Family Member Type Diagnosis Age At Onset No Information Payers Payer name Insurance type Covered democrat ID Authorthaliaa edgar(s) [facility] [id number] Social History Type Description Quantity Date Captured [...]
--- OUTSIDE RECORDS SUMMARY | 2024-06-18 03:22 | XMS_ITS | Patient Health Summary ---
Author Organization [facility] Address [address] [place] [address] Care Team Providers Care Surface Grinder Tender Name Role Phone Karla Galan APRN-STRIP PICKER Primary Care Provider + Note from [facility],non-owned Affiliates and Associated Physician Practices is amultiple site organization consisting of ambulatory clinics and hospital sitesin [place], [place], [place] and [place]. This disclosure is being madepursuant to the Care Everywhere program and may not contain all information available regarding this patient. Last updated 18.[facility] Allergies No known active allergies Medications [...] Comments Blood Pressure 108/61 06/04/2024 2:45 AM RADIOISOTOPE PRODUCTION OPERATOR Pulse 78 06/04/2024 2:45 AM RADIOISOTOPE PRODUCTION OPERATOR Temperature 36.6 C (97.8 F) 06/04/2024 2:45 AM RADIOISOTOPE PRODUCTION OPERATOR Respiratory Rate 20 06/04/2024 2:45 AM RADIOISOTOPE PRODUCTION OPERATOR Oxygen Saturation 99% 06/04/2024 2:45 AM RADIOISOTOPE PRODUCTION OPERATOR Inhaled Oxygen Concentration - - Weight [...] * CARDIAC EKG ORDER (06/05/2024 8:38 PM RADIOISOTOPE PRODUCTION OPERATOR) Narrative 06/05/2024 8:38 PM RADIOISOTOPE PRODUCTION OPERATOR Ordered by an unspecified provider. Scanned Document CARDIAC SERVICES ORD ERABLES * SARS-COV-2 (COVID-19) FLU A/B RSV PCR RAPID (06/04/2024 3:43 AM RADIOISOTOPE PRODUCTION OPERATOR) COVID-19 PCR Not detected Not detected 06/04/19 4:26 AM RADIOISOTOPE PRODUCTION OPERATOR [facility] Influenza A PCR Not detected Not detected 06/04/2024 4:26 AM RADIOISOTOPE PRODUCTION OPERATOR [facility] Influenza B PCR Not detected Not detected 06/04/2024 4:26 AM [facility] RSV PCR Not detected Not detected 06/04/2024 4:26 AM [facility] Microbiology SPECIMEN FROM NASOPHARYNGEAL STRUCTURE / Unknown Collection / Unknown 06/04/2024 3:43 AM RADIOISOTOPE PRODUCTION OPERATOR 06/04/2024 3:48 AM RADIOISOTOPE PRODUCTION OPERATOR Narrative [facility] - 06/04/2024 4:26 AM RADIOISOTOPE PRODUCTION OPERATOR This nucleic acid amplification assay has [...] Osullivan MD LAB - MICROBIO LOGY ORDERABLES [facility] [address] [place] [address] * TROPONIN-I HIGH SENSITIVE (06/03/2024 9:50 PM RADIOISOTOPE PRODUCTION OPERATOR) Troponin I High Sensitive <3 <=14 ng/L 06/03/2024 10:20 PM RADIOISOTOPE PRODUCTION OPERATOR [facility] Blood BLOOD SPECIMEN / Unknown Venipuncture / Unknown 06/03/2024 9:50 PM RADIOISOTOPE PRODUCTION OPERATOR 06/03/2024 9:56 PM RADIOISOTOPE PRODUCTION OPERATOR Fannie FAUST LAB - CHEMISTRY SHAN JOYCE [facility] [address] [place] [address] * (ABNORMAL) CBC W AUTO DIFFERENTIAL (06/03/2024 9:50 PM RADIOISOTOPE PRODUCTION OPERATOR) [facility] WBC 6.5 4.0 - 10.7 x10E9/L 06/03/2024 9:59 PM RADIOISOTOPE PRODUCTION OPERATOR [facility] RBC Count 4.15 3.90 - 5.20 x10E12/L 06/03/2024 9:59 PM [facility] Hemoglobin 12.8 11.9 - 15.8 g/dL 06/03/2024 9:59 PM [facility] Hematocrit 37.7 34.8 - 46.1 % 06/03/2024 9:59 PM [facility] MCV 90.8 80.0 - 98.0 fL 06/03/2024 9:59 PM [facility] MCH 30.8 26.7 - 33.6 pg 06/03/2024 9:59 PM [facility] MCHC 34.0 31.7 - 36.3 g/dL 06/03/2024 9:59 PM [facility] RDW-CV 12.2 11.3 - 14.8 % 06/03/2024 9:59 PM [facility] Platelet Count 296 150 - 420 x10E9/L 06/03/2024 9:59 PM [facility] MPV 9.1 7.8 - 11.4 fL 06/03/2024 9:59 PM [facility] Neutrophil % 41.4 41.0 - 74.0 % 06/03/2024 9:59 PM [facility] Lymphocyte % 47.7(H) 17.0 - 47.0 % 06/03/2024 9:59 PM [facility] Monocyte % 8.0 3.0 - 11.0 % 06/03/2024 9:59 PM [facility] Eosinophil % 1.8 0.0 - 7.0 % 06/03/2024 9:59 PM [facility] Basophil % 0.9 0.0 - 1.6 % 06/03/2024 9:59 PM [facility] Immature Granulocytes % 0.2 0.0 - 1.0 % 06/03/2024 9:59 PM [facility] Neutrophil Absolute 2.71 1.60 - 7.50 x10E9/L 06/03/2024 9:59 PM [facility] Lymphocyte Absolute 3.12 1.00 - 4.40 x10E9/L 06/03/2024 9:59 PM [facility] Monocyte Absolute 0.52 0.15 - 1.00 x10E9/L 06/03/2024 9:59 PM [facility] Eosinophil Absolute 0.12 0.00 - 0.60 x10E9/L 06/03/2024 9:59 PM [facility] Basophil Absolute 0.06 0.00 - 0.13 x10E9/L 06/03/2024 9:59 PM [facility] Blood BLOOD SPECIMEN / Unknown Venipuncture / Unknown 06/03/2024 9:50 PM RADIOISOTOPE PRODUCTION OPERATOR 06/03/2024 9:56 PM RADIOISOTOPE PRODUCTION OPERATOR Fannie FAUST LAB - HEMATOLOGY ORD ERABLES [facility] [address] [place] [address] * (ABNORMAL) COMPREHENSIVE METABOLIC PANEL (06/03/2024 9:50 PM RADIOISOTOPE PRODUCTION OPERATOR) [facility] Glucose 124(H) 70 - 99 mg/dL 06/03/2024 10:12 PM [facility] Sodium 137 136 - 145 mmol/L 06/03/2024 10:12 PM [facility] Potassium 3.8 3.5 - 5.1 mmol/L 06/03/2024 10:12 PM [facility] Chloride 112(H) 98 - 107 mmol/L 06/03/2024 10:12 PM [facility] CO2 18(L) 22 - 29 mmol/L 06/03/2024 10:12 PM [facility] Calcium 8.8 8.4 - 10.4 mg/dL 06/03/2024 10:12 PM [facility] Anion Gap 7 6 - 16 mmol/L 06/03/2024 10:12 PM [facility] BUN 12 5.3 - 18.7 mg/dL 06/03/2024 10:12 PM [facility] Creatinine 0.68 0.57 - 1.11 mg/dL 06/03/2024 10:12 PM [facility] Alkaline Phosphatase 65 40 - 150 U/L 06/03/2024 10:12 PM [facility] ALT 9 0 - 55 U/L 06/03/2024 10:12 PM [facility] AST 12 5 - 34 U/L 06/03/2024 10:12 PM [facility] Protein Total 7.1 6.4 - 8.3 gm/dL 06/03/2024 10:12 PM [facility] Albumin 4.1 3.4 - 5.0 gm/dL 06/03/2024 10:12 PM [facility] Bilirubin Total 0.5 0.2 - 1.2 mg/dL 06/03/2024 10:12 PM [facility] eGFR by CKD-EPI >90 >=90 mL/min/1.7 3 m2 06/03/2024 10:12 PM [facility] Blood BLOOD SPECIMEN / Unknown Venipuncture / Unknown 06/03/2024 9:50 PM RADIOISOTOPE PRODUCTION OPERATOR 06/03/2024 9:56 PM RADIOISOTOPE PRODUCTION OPERATOR Fannie FAUST LAB - CHEMISTRY SHAN JOYCE [facility] Organization Address City/State/[facility] Co de Phone Number [facility] [address] [place] [address] * HCG BETA BLOOD QUANTITATIVE (06/03/2024 9:50 PM RADIOISOTOPE PRODUCTION OPERATOR) Pathologist [facility] hCG Quantitative <2.42 mIU/mL 06/03/19 10:16 PM RADIOISOTOPE PRODUCTION OPERATOR [facility] Blood BLOOD SPECIMEN / Unknown Venipuncture / Unknown 06/03/2024 9:50 PM RADIOISOTOPE PRODUCTION OPERATOR 06/03/2024 9:56 PM RADIOISOTOPE PRODUCTION OPERATOR Narrative [facility] - 06/03/2024 10:16 PM RADIOISOTOPE PRODUCTION OPERATOR hCG Reference Range, mIU/mL: Non Females [...] ORDE MARIA DEL CARMEN Performing Organization Address [facility] Co de Phone Number [facility] [address] [place] [address] * EKG 12-LEAD (06/03/2024 9:45 PM RADIOISOTOPE PRODUCTION OPERATOR) Ventricular Rate 86 BPM [facility] Atrial Rate 86 BPM [facility] P-R Interval 154 ms [facility] QRS Duration ms 76 ms [facility] Q-T Interval ms 344 ms [facility] QTC Calculation (Bezet) 411 ms [facility] Calculated P Armour 58 degrees [facility] M[facility] Calculated R Armour 83 degrees [facility] Calculated T Armour 63 degrees [facility] Interpretation EKG NORMAL SINUS RHYTHM NORMAL ECG NO PREVIOUS ECGS AVAILABLE Confirmed by MD North, Rui ([id number]) on 06/04/2024 7:36:29 AM [facility] MUSE 06/03/2024 9:45 PM RADIOISOTOPE PRODUCTION OPERATOR 06/04/2024 7:36 AM RADIOISOTOPE PRODUCTION OPERATOR Fannie FAUST ECG ORDERABLES Performing Organization Address [facility] Co de Phone Number [facility] * URINALYSIS REFLEX MICROSCOPIC REFLEX CULTURE (06/03/2024 9:14 PM RADIOISOTOPE PRODUCTION OPERATOR) Color UA Yellow Yellow, Straw 06/03/2024 9:22 PM RADIOISOTOPE PRODUCTION OPERATOR [facility] Clarity UA Clear Clear 06/03/2024 9:22 PM RADIOISOTOPE PRODUCTION OPERATOR [facility] Glucose UA Normal Normal 06/03/2024 9:22 PM RADIOISOTOPE PRODUCTION OPERATOR [facility] Bilirubin UA Negative Negative 06/03/2024 9:22 PM RADIOISOTOPE PRODUCTION OPERATOR [facility] Ketone UA Negative Negative 06/03/2024 9:22 PM [facility] Specific Dingle UA 1.023 1.005 - 1.030 06/03/2024 9:22 PM [facility] Blood UA Negative Negative 06/03/2024 9:22 PM [facility] pH UA 5.5 5.0 - 9.0 pH 06/03/2024 9:22 PM [facility] Protein UA Negative Negative 06/03/2024 9:22 PM [facility] Urobilinogen UA Normal Normal mg/dL 025 9:22 PM [facility] Nitrite UA Negative Negative 06/03/2024 9:22 PM [facility] Leukocyte UA Negative Negative 06/03/2024 9:22 PM [facility] Urine URINE SPECIMEN OBTAINED BY CLEAN CATCH PROCEDURE / Unknown Collection / Unknown 06/03/2024 9:14 PM RADIOISOTOPE PRODUCTION OPERATOR 06/03/2024 9:19 PM RADIOISOTOPE PRODUCTION OPERATOR Narrative [facility] - 06/03/2024 9:22 PM RADIOISOTOPE PRODUCTION OPERATOR Fannie FAUST LAB - URINALYSIS ORD ERABLES Performing Organization Address City/State/[facility] Co de Phone Number [facility] [address] [place], [place] [id number] * XR CHEST 2VW (06/03/2024 9:09 PM RADIOISOTOPE PRODUCTION OPERATOR) Anatomical Region Laterality Modality Chest Radiographic Peg ging 06/04/2024 10:0 1 AM RADIOISOTOPE PRODUCTION OPERATOR Impressions 06/04/2024 10:01 AM RADIOISOTOPE PRODUCTION OPERATOR IMPRESSION: No active cardiac or pulmonary disease. > Interpreting Provider: Sheldon Curry MD on 06/04/2024 10:01 AM Narrative 06/04/2024 10:01 AM RADIOISOTOPE PRODUCTION OPERATOR PROCEDURE: XR CHEST 2VW DATE/TIME OF [...] HOSPITAL MICROBIOLOGY [address] [place] [address], [facility] [phone] * CALCIUM/CREAT RATIO URINE RANDOM PANEL (01/09/2020 4:09 PM CDT) Only the most recent of3 resultswithin the time period is included. Calcium Urine 25.24 mg/dL 01/09/2020 5:37 PM CDT [facility] Creatinine Urine 198.05 mg/dL 01/09/2020 5:37 PM CDT [facility] Calcium/Creatin ine Ratio Urine 0.13 01/09/2020 5:37 PM CDT [facility] Urine URINE SPECIMEN OBTAINED BY CLEAN CATCH PROCEDURE / Unknown Collection / Unknown 01/09/2020 4:09 PM CDT 01/09/2020 4:12 PM CDT Narrative [facility] - 01/09/2020 5:37 PM CDT Normal <0.16 Borderline 0.16-0.20 Abnormal >0.20 Yenifer Slade PA-C LAB - URINE MEDICAL GRADE SHOEMAKER RY ORDERABLES [facility] [place] [address] * (ABNORMAL) URINALYSIS W/MICROSCOPIC NO CULTURE (01/09/2020 4:08 PM CDT) Only the most recent of2 resultswithin the time period is included. Color UA Yellow Straw, Yellow 01/09/2020 5:32 PM CDT [facility] Clarity UA Slt Cloudy(A) Clear 01/09/2020 5:32 PM CDT [facility] Glucose UA Negative Negative 01/09/2020 5:32 PM CDT [facility] Bilirubin UA Negative Negative 01/09/2020 5:32 PM CDT [facility] Ketone UA Negative Negative 01/09/2020 5:32 PM CDT [facility] Specific Dingle UA 1.025 1.005 - 1.030 01/09/2020 5:32 PM CDT [facility] Blood UA Negative Negative 01/09/2020 5:32 PM T [facility] pH UA 6.0 5.0 - 8.0 pH 01/09/2020 5:32 PM CDT [facility] Protein UA Negative Negative 01/09/2020 5:32 PM CDT [facility] Urobilinogen UA Negative Negative mg/dL 01/09/2020 5:32 PM CDT [facility] Nitrite UA Negative Negative 01/09/2020 5:32 PM CDT [facility] Leukocyte UA Negative Negative 01/09/2020 5:32 PM CDT [facility] RBC UA None Seen None Seen, 0-2, 3-5 # /hpf 01/09/2020 5:32 PM CDT [facility] WBC UA 0-5 None Seen, 0-5 # /hpf 01/09/2020 5:32 PM CDT [facility] Bacteria UA 1+(A) None Seen 01/09/2020 5:32 PM CDT [facility] Squamous Epithelial Cells 11-20(A) None Seen, 0-2, 3-5 /hpf 01/09/2020 5:32 PM CDT [facility] Mucus UA 2+ /LPF 01/09/2020 5:32 PM CDT [facility] Urine URINE SPECIMEN OBTAINED BY CLEAN CATCH PROCEDURE / Unknown Collection / Unknown 01/09/2020 4:08 PM CDT 01/09/2020 4:12 PM CDT Yenifer Slade PA-C LAB - URINALYSIS OR DERABLES [facility] [address] [place] [address] * US KIDNEYS W BLADDER (01/09/2020 2:02 [...] on 01/09/2020 at 2:18 PM Elvira Mixon SUPERVISOR DRILLING AND SHOOTING-STRIP PICKER US ORDERABLES * GROSS + MICRO EXAM (STL) (11/28/2018 12:04 PM CDT) Case Report Surgical Pathology Report Case: [id number] Authorizing Provider: Miguel Toledo MD Collected: 11/28/2018 12:04 PM Ordering Location: [facility] Received: 11/28/2018 01:02 PM Pathologist: Tyrone Moreno MD Specimen: Bladder Biopsy 11/29/2018 10:14 AM [facility] Final Diagnosis Urinary Bladder, Biopsy: - Urothelium associated with von Brunn's nests/islands (see comment). Comment: The biopsy sample shows von Brunn's nests/islands, precursors of cystitis cystica. 11/29/2018 10:14 AM [facility] Clinical History The patient is a 13-year-old girl with urinary tract infection who underwent urinary bladder biopsy. 11/29/2018 10:14 AM T [facility] Gross Description Submitted fresh in one container for gross and microscopic examination, labeled with the patient's name, Merlyn Villatoro, and biopsy, is a 3 x 2 x 1 mm fragment of pink-billingsley soft tissue submitted in toto as A1. (CT/jam) 11/29/2018 10:14 AM [facility] Microscopic Description 3 H&E. Sections show urothelium with basal proliferation overlying fibrous connective tissue containing urothelial buds/nodules (von Brunn's nests/islands) with no significant atypia. (DSB) 11/29/2018 10:14 AM CDT [facility] Disclaimer The performance characteristics of all immunohistochemical and indirect immunofluorescence stains (if any) cited in this report were determined by the [facility] in compliance with Clinical Laboratory Improvement Amendments of 1988 (CLIA'88) regulations. Some of these tests rely on the use of analyte-specific reagents and are subject to specific labeling requirements by the U.S. Food and Drug Administration (FDA). Such tests were developed by the [facility] and have not been cleared or approved by the FDA. The FDA has determined that such clearance or approval is not necessary. These tests are used for clinical purposes and should not be regarded as investigational or for research. This case has been personally reviewed and interpreted by the attending (teaching) pathologist. 11/29/2018 10:14 AM CDT [facility] Embedded Images 11/29/2018 10:14 AM CDT [facility] Pathology/Cytolo gy URINARY BLADDER BIOPSY SPECIMEN / Unknown 11/28/2018 12:04 PM CDT 11/28/2018 1:02 PM CDT Miguel Toledo MD LAB - PATHOLOGY/CYTO LOGY ORDERABLES [facility] [address] [place] [address] * HCG URINE QUALITATIVE - POCT (IP) INTERFACED (11/28/2018 10:31 AM CDT) HCG Qual Urine Negative Negative 11/28/2018 10:28 AM CDT [facility] Urine URINE / Unknown 11/28/2018 1 0:31 AM CDT 11/28/2018 10:28 AM CDT Miguel Toledo MD LAB - POINT OF CARE ORDERABLES [facility] [address] [place] [address] * HCG URINE QUAL POCT NOTIFICATION (11/28/2018 10:16 AM CDT) Comment Notification Label Only - See Separate Report 11/28/2018 11:30 AM T [facility] Urine URINE / Unknown 11/28/2018 1 0:16 AM CDT 11/28/2018 10:16 AM CDT Miguel Toledo MD LAB - URINALYSIS ORD ERABLES Performing Organization Address [facility] Co de Phone Number [facility] [address] [place] [address] * (ABNORMAL) URINALYSIS ROUTINE AUTO (08/31/2016 11:20 AM CDT) Color UA Yellow Straw, Yellow, Dark Yellow 08/31/2016 2:03 PM T [facility] Clarity UA Clear 08/31/2016 2:03 PM T [facility] Specific Dingle UA 1.025 1.005 - 1.030 08/31/2016 2:03 PM T [facility] pH UA 5.5 5.0 - 8.0 pH 08/31/2016 2:03 PM T [facility] Protein UA Negative Negative 08/31/2016 2:03 PM T [facility] Blood UA Trace(A) Negative 08/31/2016 2:03 PM T [facility] Leukocyte UA Negative Negative 08/31/2016 2:03 PM T [facility] Nitrite UA Negative Negative 08/31/2016 2:03 PM T [facility] Glucose UA Negative Negative 08/31/2016 2:03 PM T [facility] Ketone UA Negative Negative 08/31/2016 2:03 PM T [facility] Bilirubin UA Negative Negative 08/31/2016 2:03 PM T [facility] Urobilinogen UA 0.2 0.1 - 1.0 EU/dL 08/31/2016 2:03 PM T [facility] Urine URINE SPECIMEN OBTAINED BY CLEAN CATCH PROCEDURE / Unknown 08/31/2016 11:20 AM CDT 08/31/2016 11:27 AM CDT Elvira Mixon APRN-ELO LAB - URINALYS IS ORDERABLES Performing Organization Address [facility] Co de Phone Number [facility] [address] [place] [address] * URINALYSIS MICROSCOPIC ONLY (08/31/2016 11:20 AM CDT) RBC UA 0-2 0-2, 2-5 # /hpf 08/31/2016 2:03 PM CDT [facility] WBC UA 0-2 0-2, 2-5 # /hpf 08/31/2016 2:03 PM CDT [facility] Bacteria UA None Seen None Seen, Trace 08/31/2016 2:03 PM CDT [facility] Epithelial Cell UA 0-2 0-2, 2-5 # /hpf 08/31/2016 2:03 PM CDT [facility] Urine URINE SPECIMEN OBTAINED BY CLEAN CATCH PROCEDURE / Unknown 08/31/2016 11:20 AM CDT 08/31/2016 11:27 AM CDT Elvira Mixon SUPERVISOR DRILLING AND SHOOTING-STRIP PICKER LAB - URINALYS IS ORDERABLES [facility] [address] [place] [address] * LAB RESULTS ORDER (07/23/2014 1:22 AM CDT) Narrative 07/23/2014 1:22 AM CDT Ordered by an unspecified provider. Scanned Document LAB - THERAPEUTIC DR CAMPOS MONITORING ORDERABLES * PATHOLOGY TISSUE FOR DERMATOLOGY (05/29/2014 12:00 AM RADIOISOTOPE PRODUCTION OPERATOR) Only the most recent of2 resultswithin the time period is included. Result THIS IS AN ADDENDUM REPORT CASE: [id number] PATIENT: MERLYN VILLATORO THIS REPORT HAS BEEN [...] this case has been sent to the [facility] ([facility]) in consultation. An addendum will be issued as soon as the results of this consultation are available. This case was reviewed with Dr. Brittani Torres, who agrees with the diagnosis. Electronically signed out by Guillermina Persaud M.D., PhD. 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 Electronically signed out by Guillermina Persaud M.D., PhD. 06/12/2014 3:09:49PM [facility] Comment: Performed at: Dermatopathology Laboratory [facility] - Department of Dermatology [address] [facility] [place] [address] Phone number: [phone] FAX: [phone] 05/29/2014 05/30/2014 Nicole Urbina MD LAB - PATHOLOGY/CY TOLOGY ORDERABLES [facility] [address] [place] [address], [facility] [phone] * BORDETELLA PERTUSSIS PCR (11/04/2013 12:47 PM CDT) Bordetella pertussis PCR Not detected Not detected, Invalid 11/04/2013 11:24 PM CDT [facility] Microbiology NASOPHARYNGEAL SWAB / Unknown 11/04/2013 12:47 PM CDT 11/04/2013 1:15 PM CDT Narrative [facility] - 11/04/2013 11:24 PM CDT This assay detects a single-copy gene in the toxin promoter region of B. pertussis. It is less sensitive, but more specific, than PCR assays that detect the multi- copy [id number] gene. Phoebe Valdes MD LAB - MICROBIOLOGY ORDERABLES [facility] [address] [place], [place] [id number] [place] [address] * AUDIOLOGY/TYMPANOMETRY ORDER (04/01/2010 7:14 AM RADIOISOTOPE PRODUCTION OPERATOR) Narrative Procedure Note Document, Scanned - 03/31/2010 3:39 PM RADIOISOTOPE PRODUCTION OPERATOR Scanned Document AUDIOLOGY SERVICES O SOFÍAERABLES Care Teams Surface Grinder Tender Relationship Specialty Start Date End Date Karla Galan APRN-ELO [address] [facility] [address] [place] [address] PCP - General Nurse Practitioner 01/09/20
--- OUTSIDE RECORDS SUMMARY | 2024-06-18 03:22 | XMS_ITS | Clinical Summary ---
Author Organization [facility] Address [address] [place] [address] Care Team Providers Care Medical Leader Name Role Phone Kody Sumner MD Unavailable [phone] Linda Benavidez NP Primary Care Provider [phone] Allergies No known active allergies Medications topiramate (TOPAMAX) 25 MG tabletIndication s:Obesity (BMI 30-39.9),Binge eating disorder Take 1 tablet (25 mg total) by mouth every morning. 30 tablet 2 4 Active cariprazine (VRAYLAR) 1.5 MG capsuleIndicatio ns:Depression screening,Depres sive disorder,General ized anxiety disorder,Bipolar 1 disorder ([facility] HHS/[facility]) Take 1 capsule (1.5 mg total) by mouth daily. 30 capsule 2 4 Active escitalopram (LEXAPRO) 10 MG tabletIndication s:Depression screening,Depres sive disorder,General ized anxiety disorder,Bipolar 1 disorder ([facility] HHS/HCC) Take 1 tablet (10 mg total) by mouth daily. 30 tablet 2 4 Active VYVANSE 30 MG capsule Take 1 capsule (30 mg total) by mouth every morning. 4 Active amoxicillin (AMOXIL) 400 MG/5ML suspensionIndica tions:Acute non-recurrent sinusitis, unspecified location Take 10 mLs (800 mg total) by mouth 2 (two) times daily for 7 days. 140 mL 5 05/26/19 Active Problems Problem Noted Date Diagnosed Date Obesity (BMI 30-39.9) 01/04/2024 Generalized anxiety disorder 01/04/2024 Bipolar 1 disorder ([facility]) 01/04/2024 Constipation, unspecified constipation type /12/2023 Hx of colonic polyps 09/27/2023 Bloating 09/27/2023 [...] Department Care Team Description 05/19/2024 11:00 AM [facility] Office Visit [facility] [address] [place] [phone] Ashley Grey NP Cough (Pt here today for cough, congestion.) 05/19/2024 Travel 04/22/2024 7:12 PM [facility] - 04/22/2024 9:50 PM [facility] Emergency [facility] Emergency Room [address] [place] [address] Curtis Rivera MD Abdominal Pain Discharge Disposition: Home or Self Care (Routine Discharge) 04/22/2024 Travel 04/21/2024 12:39 AM [facility] - 04/21/2024 3:06 AM [facility] Emergency [facility] Emergency Room [address] [place] [address] Curtis Rivera MD Medical Problem Discharge Disposition: Home or Self Care (Routine Discharge) 04/20/2024 Travel 04/17/2024 1:57 PM [facility] - 04/17/2024 11:59 PM [facility] Hospital Encounter [facility] [address] [place] [address] Nely Kelley, PA Discharge Disposition: Home or Self Care (Routine Discharge) 04/17/2024 1:00 PM [facility] Office Visit [facility] Family & Internal [address] [phone] Nely Kelley, PA URI (Positive at home covid test) 04/17/2024 Travel 04/09/2024 9:46 AM [facility]NER - 04/09/2024 10:53 AM [facility] Emergency [facility] Emergency Room [address] [place] [address] Debo Fragoso MD Medical Problem Discharge Disposition: Home or Self Care (Routine Discharge) 04/09/2024 Travel 03/22/2024 Orders Only [facility] Family Internal [address] [phone] Linda Benavidez NP 03/21/2024 Telephone [facility] Family & Internal Medicine [facility] [address] [place] [address] Linda Benavidez NP Lab Order from Last 3 Months Immunizations Name Administration Dates Next Due [id number] (Pediarix) 07/15/2005,06/30,2004,03/02 DTaP-IPV (Kinrix) 02/13/2010 Dtap (Acel-Immune) [...] on file Legal Sex Female 8:54 AM [employer] [facility] Gender Identity Not on file Sexual Orientation Not on file Last Filed Vital Signs Vital Sign Reading Time Taken Comments Blood Pressure 106/66 05/19/2024 11:02 AM [facility] [facility] Pulse 91 05/19/2024 11:02 AM [facility] [facility] Temperature 36.9 C (98.4 F) 05/19/2024 11:02 AM [facility]NER Respiratory Rate 20 05/19/2024 11:02 AM [facility] Oxygen Saturation 97% 05/19/2024 11:02 AM [facility]NER Inhaled Oxygen Concentration - - Weight 85.7 kg (189 lb) 05/19/2024 11:02 AM [facility] Height 162.6 cm (5' 4 ) 05/19/2024 11:02 AM [facility] [facility]NER Body Mass Index 32.44 05/19/2024 11:02 AM [facility] Plan of Treatment Health Maintenance Due Date Last Done Comments Annual Physical 01/12/2007 Meningococcal B Vaccine (1 of 2 - Standard) 2020 Hepatitis C 01/12/2022 PHQ-2 (Physician [place]) 05/02/2024 01/04/2024 Chlamydia Screening Females ages 16-24 09/28/2024 09/29/2023, 06/30/2023, 05/14/2022, Additional history exists COVID-19 Vaccine ( - 2023- season) 2025 07/09/2021, 03/28/2021 Postponed from 01/01/2024 [...] Completed 12/01/2016, 02/17/2016 Influenza Adult Completed 03/22/2024, 02/0 01/2024, 07/06/2022, Additional history exists RSV Immunizations Under 20 Months Aged Out No longer eligible based on patient's age to complete this topic Procedures Procedure Name Priority Date/Time Associated Diagnosis Comments MAGNESIUM STAT 04/22/2024 8:36 PM [facility]NER LIPASE STAT 04/22/2024 8:36 PM [facility] [facility] [facility]NER COMPREHENSIVE METABOLIC PANEL STAT 04/22/2024 8:36 PM [facility] [facility] CBC W/DIFF AUTOMATED STAT 04/22/2024 8:[address] ABD+PEL W CON STAT 04/22/2024 8:24 PM [facility] [facility]NER TEST URINE STAT 04/22/2024 7:54 PM [facility] [facility]NER URINALYSIS, AUTO, COMPLETE STAT 04/22/2024 7:54 PM [facility]NER URINE BACTERIA CULTURE STAT 04/21/2024 12:52 AM [facility] [employer]NER TEST URINE STAT 04/21/2024 12:52 AM [facility]NER URINALYSIS, AUTO, COMPLETE STAT 04/21/2024 12:52 AM [facility] XR CHEST PA+LAT Routine 04/17/2024 2:09 PM [facility] [facility] Positive QuantiFERON-TB Gold test Acute cough CORONAVIRUS (COVID-19) INFLUENZA A & B ANTIGEN IA PANEL Routine 04/17/2024 Suspected COVID-19 virus infection CBC W/DIFF AUTOMATED STAT 04/09/2024 10:07 AM [facility] [facility]NER HCG QUANT (SERUM)-CHORIONIC GONADOTROPIN STAT 04/09/2024 10:07 AM [facility]NER TEST URINE STAT 04/09/2024 9:57 AM [facility]NER URINALYSIS, AUTO, COMPLETE STAT 04/09/2024 9:57 AM [facility]NER QUANTIFERON - TB GOLD PLUS, 1T Routine 03/23/2024 3:53 PM [facility] [facility]NER Screening for tuberculosis CHLAMYDIA GC RNA STAT 09/29/2023 7:18 AM CDT from Last 3 Months or Most Recently Relevant to Health Maintenance Results * (ABNORMAL) COMPREHENSIVE METABOLIC PANEL (04/22/2024 8:36 PM TAR [facility]NER) [facility] GLUCOSE 84 70 - 99 MG/DL 04/22/2024 9:08 PM [facility] BUN 13 7 - 18 MG/DL 04/22/2024 9:08 PM [facility] CREATININE S/P/B 0.84 0.55 - 1.02 MG/DL 04/22/2024 9:08 PM [facility] SODIUM S/P/B 144 136 - 145 MMOL/L 04/22/2024 9:08 PM [facility] POTASSIUM S/P/B 3.3(L) 3.5 - 5.1 MMOL/L 04/22/2024 9:08 PM [facility] CHLORIDE S/P/B 107 100 - 108 MMOL/L 04/22/2024 9:08 PM [facility] CO2 20.5(L) 21 - 32 MMOL/L 04/22/2024 9:08 PM [facility] CALCIUM S/P/B 8.3(L) 8.5 - 10.1 MG/DL 04/22/2024 9:08 PM [facility] BILIRUBIN TOTAL S/P/B 0.3 0.2 - 1.2 MG/DL 04/22/2024 9:08 PM [facility] TOTAL PROTEIN S/P/B 7.0 6.4 - 8.2 G/DL 04/22/2024 9:08 PM [facility] ALBUMIN S/P/B 3.9 3.4 - 5.0 G/DL 04/22/2024 9:08 PM [facility] AST 17 15 - 37 U/L 04/22/2024 9:08 PM [facility] ALT 19 14 - 55 U/L 04/22/2024 9:08 PM [facility] ALKALINE PHOSPHATASE S/P/B 55 50 - 136 U/L 04/22/2024 9:08 PM [facility] ANION GAP 16.5(H) 5 - 15 MMOL/L 04/22/2024 9:08 PM [facility] BUN CREATININE RATIO 15.5 6 - 26 04/22/2024 9:08 PM [facility] A/G RATIO 1.3 1.0 - 2.0 RATIO 04/22/2024 9:08 PM [facility] GFR ESTIMATE >90 >90 ML/MIN/1.7 3 M2 04/22/2024 9:08 PM [facility] Comment: NOTE: eGFR is not calculated for patients <18 years of age. This is an estimated GFR calculation using the new CKD EPI creatinine equation without race and so does not require a correction factor for race. This estimated GFR should not be used for calculating drug doses. 04/22/2024 8:36 PM [facility] us Curtis Rivera MD LABORATORY Final Resul t [facility] [address] [place] [address], [place] [phone] * (ABNORMAL) CBC W/DIFF AUTOMATED (04/22/2024 8:36 PM [facility] [facility] [facility]) Only the most recent of2 resultswithin the time period is included. WBC 13.70(H) 4.4 - 11.0 x10'3/uL 04/22/2024 8:49 PM [facility] RBC 4.15(L) 4.50 - 5.10 x10'6/uL 04/22/2024 8:49 PM [facility] HGB 13.1 12.3 - 15.3 G/DL 04/22/2024 8:49 PM [facility] HCT 38.6 35.9 - 44.6 % 04/22/2024 8:49 PM [facility] MCV 93.0 80.0 - 96.0 FL 04/22/2024 8:49 PM [facility] MCH 31.6(H) 25.3 - 30.9 PG 04/22/2024 8:49 PM [facility] MCHC 33.9 31.0 - 34.1 G/DL 04/22/2024 8:49 PM [facility] RDW 12.9 12.4 - 15.1 % 04/22/2024 8:49 PM [facility] PLT 308 151 - 353 x10'3/uL 04/22/2024 8:49 PM [facility] MPV 9.3(L) 9.6 - 12.0 FL 04/22/2024 8:49 PM [facility] RBC MORPHOLOGY NORMAL 04/22/2024 8:49 PM [facility] PLT MORPH. NORMAL 04/22/2024 8:49 PM [facility] WBC MORPHOLOGY NORMAL 04/22/2024 8:49 PM [facility] LYMPHOCYTES % 12.2(L) 15.8 - 45.0 % 04/22/2024 8:49 PM [facility] NEUTROPHILS % 83.3(H) 42.1 - 71.9 % 04/22/2024 8:49 PM [facility] [facility] MONOCYTES % 4.0(L) 5.7 - 12.5 % 04/22/2024 8:49 PM [facility] EOSINOPHILS 0.1 0.0 - 5.6 % 04/22/2024 8:49 PM [facility] BASOPHILS 0.1 0.0 - 1.3 % 04/22/2024 8:49 PM [facility] ABS. NEUTROPHILS 11.40(H) 1.40 - 6.00 x10'3/uL 04/22/2024 8:49 PM [facility] IMMATURE GRANS % 0.3 0.0 - 0.5 % 04/22/2024 8:49 PM [facility] ABS. LYMPHOCYTES 1.67 0.80 - 4.70 x10'3/uL 04/22/2024 8:49 PM [facility] 04/22/2024 8:36 PM [employer] us Curtis Rivera MD LABORATORY Final Resul t Performing Organization Address City/State/[facility] Co de Phone Number [facility] [address] [place] [address], * (ABNORMAL) MAGNESIUM (04/22/2024 8:36 PM [facility] [facility]NER) MAGNESIUM 1.5(L) 1.8 - 2.4 MG/DL 04/22/2024 9:08 PM [facility] 04/22/2024 8:36 PM [employer] us Curtis Rivera MD LABORATORY Final Resul t Performing Organization Address [facility] Co de Phone Number [facility] [address] [place] [address], [place] [phone] * LIPASE (04/22/2024 8:36 PM [facility] [facility] [facility]NER) LIPASE 23 16 - 77 UNITS/L 04/22/2024 9:08 PM [facility] 04/22/2024 8:36 PM [employer] us Curtissimeon Rivera MD LABORATORY Final Resul t Performing Organization Address [facility] Co de Phone Number [facility] [address] [place] [address], [place] [phone] * CT ABD+PEL W IV CON ONLY (04/22/2024 8:24 PM [facility]AR [facility] [facility]NER) Anatomical Region Laterality Modality Abdomen Computed Tomogra phy 04/22/2024 8:38 PM [facility] [facility] [facility] Impressions 04/22/2024 8:50 PM [facility] [facility] [facility]NER IMPRESSION: 1. No acute findings in the abdomen or pelvis. 2. Hepatic steatosis. 3. Round device in the cervix/vaginal canal. Correlation with operative history is recommended. Referred By: Interpreted By: Gagan New MD, 04/22/2024 8:38 PM Narrative 04/22/2024 8:50 PM [facility]NER [facility] [address] [facility] [place] [address] EXAMINATION: CT Abdomen and Pelvis with contrast [...] Procedure Note Gagan New MD - 04/22/2024 [facility] [address] [facility] [place] [address] EXAMINATION: CT Abdomen and Pelvis with contrast [...] t * TEST URINE (04/22/2024 7:54 PM [facility] [facility]) Only the most recent of3 resultswithin the time period is included. URINE HCG TEST NEGATIVE NEGATIVE 04/22/2024 8:28 PM [facility] [facility] [facility] Comment: VERY DILUTE URINE SPECIMENS MAY NOT CONTAIN DOORKEEPER LEVELS OF HCG. IF IS STILL SUSPECTED, A SERUM HCG TEST IS RECOMMENDED. URINE SPECIMEN FROM URETHRA / Unknown 04/22/2024 7:54 PM [facility]NER us Curtis Rivera MD URINE ORDERABLES Final Resu lt [facility] [address] [place] [address], [place] [phone] * (ABNORMAL) URINALYSIS, AUTO, COMPLETE (04/22/2024 7:54 PM [facility] [facility] [facility]) Only the most recent of3 resultswithin the time period is included. COLOR (U) ORANGE 04/22/2024 8:32 PM [facility] TRANSPARENCY CLOUDY 04/22/2024 8:32 PM [facility] SPECIFIC GRAVITY (U) >1.030(H) 1.000 - 1.030 04/22/2024 8:32 PM [facility] U PH 5.5 5.0 - 9.0 04/22/2024 8:32 PM [facility] LEUKOCYTES (U) 2+(A) NEGATIVE 04/22/2024 8:32 PM [facility] NITRITES POSITIVE(A) NEGATIVE 04/22/2024 8:32 PM [facility] PROTEIN RANDOM (U) 3+(A) NEGATIVE 04/22/2024 8:32 PM [facility] GLUCOSE (U) TRACE(A) NEGATIVE 04/22/2024 8:32 PM [facility] KETONES MG/DL (U) NEGATIVE NEGATIVE 04/22/2024 8:32 PM [facility] BILIRUBIN (U) NEGATIVE NEGATIVE 04/22/2024 8:32 PM [facility] BLOOD (U) 3+(A) NEGATIVE 04/22/2024 8:32 PM [facility] WBC/HPF 10-25 0 - 5 /HPF 04/22/2024 8:32 PM [facility] RBC/HPF 5-10 0 - 5 /HPF 04/22/2024 8:32 PM [facility] EPI/HPF FEW /HPF 04/22/2024 8:32 PM [facility] BACTERIA (U) FEW /HPF 04/22/2024 8:32 PM [facility] URINE SPECIMEN OBTAINED BY CLEAN CATCH PROCEDURE / Unknown 04/22/2024 7:54 PM [facility] [facility] [facility]NER Curtis Rivera MD URINE ORDERABLES Final Resu lt [facility] [address] [place] [address], [place] [phone] * (ABNORMAL) CULTURE URINE (04/21/2024 12:52 AM [facility]AR [facility] [facility]NER) SPEC DESCRIPTION URINE CLEAN CATCH 04/21/2024 12:59 AM [facility] SPECIAL REQUESTS NO SPECIAL REQUEST 04/21/2024 12:59 AM [facility] CULTURE RESULT 50,000-100, 000 COL/ML ESCHERICHIA COLI (A) 04/23/2024 7:55 AM [facility] [facility]NER [facility] URINE SPECIMEN OBTAINED BY CLEAN CATCH PROCEDURE / Unknown 04/21/2024 12:52 AM [facility] [facility] [facility]NER 04/21/2024 1:05 AM [facility] [facility]NER Narrative Organism Antibiotic Method Susceptibility Escherichia coli [...] Curtis Rivera MD MICROBIOLOGY - GENERAL ORDE [facility] Final Result [facility] [address] [place] [address], [place] [phone] [facility] [address] [place] [address], [place] [phone] * XR CHEST PA+LAT (04/17/2024 2:09 PM [facility]AR [facility] [facility]NER) Anatomical Region Laterality Modality Chest Radiographic Peg ging 04/18/2024 8:16 PM [facility] [facility] [facility]NER Impressions 04/18/2024 8:17 PM [facility] [facility] [facility]NER IMPRESSION: 1) No radiographic evidence of active disease. No significant change compared to prior study.. Ordered By: NELY KELLEY Interpreted By: Mahamed Zamorano MD, 04/18/2024 8:16 PM Narrative 04/18/2024 8:17 PM [facility] [employer]NER [address] [place] [address] Examination: XR CHEST PA+LAT Exam time: 04/17/2024 2:01 PM Clinical history: Positive TB test. Patient has no symptoms. Comparison: Prior studies from April 2022. Technique: 2 projections. Findings: The cardiac size is normal. The trachea is in the midline. In the lung parenchyma no focal infiltrates. There is no pneumothorax or effusion. Osseous structures are intact. Procedure Note Mahamed Zamorano MD - 04/18/2024 [place] [id number] [facility] [place] [address] Examination: XR CHEST PA+LAT Exam time: 04/17/2024 [...] changecompared to prior study.. Ordered By: NELY KELLEY Interpreted By: Mahamed Zamorano MD, 04/18/2024 8:16 PM [facility] Final Result * CORONAVIRUS (COVID-19) INFLUENZA A & B ANTIGEN IA PANEL (04/17/2024) [facility] CORONAVIRUS ANTIGEN IA NEGATIVE NEGATIVE -[id number], [place] INFLUENZA A NEGATIVE NEGATIVE MG-[id number], [place] INFLUENZA B NEGATIVE NEGATIVE MG-[id number], [place] Internal Control: VALID VALID [id number], [place] NASAL STRUCTURE / Unknown 04/17/2024 Nely [facility] MICROBIOLOGY - GENERAL ORDER JEANCARLOS Final Result Performing Organization Address City/[facility]/ZIP Co de Phone Number -[phone], [place] [address] [place] [address], [place] [phone] * HCG QUANTITATIVE SERUM (04/09/2024 10:07 AM TAR [facility]NER) Pathologist [facility] HCG QUANTITATIVE <1 0 - 6 MIU/ML 04/09/2024 10:42 AM [facility] [facility]NER [facility] Comment: WEEKS OF REFERENCE RANGES NON- FEMALE 0-6 0.2 - 1 5 - 50 1 - 2 50 - 500 2 - 3 100 - 5000 3 - 4 500 - 10,000 4 - 5 1000 - 50,000 5 - 6 10,000 - 100,000 6 - 8 15,000 - 200,000 2 - 3 MONTHS 10,000 - 100,000 04/09/2024 10:0 7 AM [facility]NER Debo Fragoso MD LABORATORY Final Result [facility] [address] [place] [address], [place] [phone] * (ABNORMAL) QUANTIFERON - TB GOLD PLUS, 1 TUBE (QUEST ONLY) (03/23/2024 3:53 PM TAR [facility]NER) [facility] TB QUANTIFERON POSITIVE( A) NEGATIVE [facility] Comment: In healthy persons who have a low likelihood of M. tuberculosis infection, a single positive QFT result should not be taken as reliable evidence of M. tuberculosis infection. Repeat testing, with either the initial test or a different test, may be considered on a [id number] basis. NIL (TB) 0.27 IU/mL [facility] S[facility]on [facility] MITOGEN NIL 6.52 IU/mL [facility] DIAGNOSTICS [facility] TB1 AG MINUS NIL 0.38 IU/mL [facility] MYA TB2 AG MINUS NIL 0.38 IU/mL [facility] Comment: The Nil tube value reflects the [...] T-lymphocytes. For additional information, please refer to https://education.[employer]/faq/JMF511 (This link is being provided for informational/ educational purposes only.) 03/23/2024 3:53 PM TAR K[employer]TLE RUNNER 03/23/2024 3:54 PM [facility]AR [employer]TLE [facility]NER Narrative Resulting Agency Comment Performing Organization Information: Site ID: [id number] Name: John Marcum Address: [address] [place] [address] Director: Rasta Alfaro MD us Linda Benavidez NP LABORATORY Final Result [facility] [address] [address], [place] * CHLAMYDIA GC RNA (09/29/2023 7:18 AM CDT) [facility] SPECIMEN SOURCE URINE 7:18 AM CDT [facility] CHLAMYDIA PCR NEGATIVE NEGATIVE 09/30/2023 12:[address] [facility] Comment:PERFORMED BY NUCLEIC ACID AMPLIFICATION N.GONORRHOEAE RNA TMA NEGATIVE NEGATIVE 09/30/2023 12:[address] [facility] Comment:PERFORMED BY NUCLEIC ACID AMPLIFICATION URINE SPECIMEN / Unknown 09/29/2023 7:18 AM CDT Sheldon Eaton DO MICROBIOLOGY - GENERAL ORDERAB LES Final Result [facility] [address] [place] [address], [place] [phone] [facility] [address] [facility] [place] [address], from Last 3 Months or Most Recently Relevant to Health Maintenance Insurance [facility] Care Teams Medical Leader Relationship Specialty [place] [address] [facility] [address] [place] [address] PCP - General Nurse Practitioner Family 12/30/23 Kody Sumner MD [place] [address] [address] [place] [address] OBCRISTINA 01/26/23
--- NOTE | 2024-06-18 03:41 | ED.GENADULT ---
HPI - General Adult General Chief complaint: Urogenital-Female Stated complaint: think I have UTI symptoms. psych symptoms Time Seen by Provider: 06/18/24 02:57 History of Present Illness HPI narrative: This is a 19-year-old female presenting with 2 complaints. The 1st complaint is UTI symptoms. She has had burning on urination. She has a history of frequent UTIs and pelvic floor dysfunction. No fevers chills nausea vomiting diarrhea or flank pain. Second complaint is psychiatric. She stopped taking her medications 4 days ago and has noticed a decrease in her mood. She has not been sleeping well. She has missed appointment with her psychiatrist. She is not suicidal homicidal or psychotic. She is very self aware and realized she should be taking her medications. Related Data Home Medications ?Medication ?Instructions ?Recorded ?Confirmed ?Last Taken ?Type escitalopram oxalate 10 mg tablet 10 mg PO DAILY 08/31/23 01/20/24 Unknown History albuterol sulfate 90 mcg/actuation 2 puff inhalation QID PRN 01/12/24 01/20/24 Unknown History aerosol inhaler Shortness Of Breath Or Wheezing cariprazine 1.5 mg capsule 1.5 mg PO DAILY 01/12/24 01/20/24 Unknown History topiramate 25 mg sprinkle capsule 25 mg PO DAILY 01/12/24 01/20/24 Unknown History (Topamax) Allergies Allergy/AdvReac Type Severity Reaction Status Date / Time No Known Allergies Allergy Verified 01/20/24 08:54 [facility] Past Medical History Medical History Abdominal bloating Constipation Diarrhea Nausea UTI (urinary tract infection) Surgical History Surgical History No pertinent past surgical history Social History Social History Smoking status: Never smoker Tobacco type: e-cigarettes/vaping Additional smoking assessment comments: VAPING FOR 1 YR Alcohol intake: current Alcohol use details: 2 PER MONTH Substance use: never Substance use type: marijuana Living arrangements: with family Spiritual care concerns: No Exam Narrative: APPEARANCE: No apparent distress. Head: atraumatic. EYES: EOMI, NOSE: Atraumatic NECK: Trachea midline RESPIRATORY: No increased rate of breathing clear to auscultation CARDIOVASCULAR: RRR, ABDOMINAL: Non-distended soft nontender, no CVA tenderness MUSCULOSKELETAl: No obvious deformities NEURO: Alert. Moving 4/4 extremities SKIN:: Warm, dry. Normal color PSYCHIATRIC: Pressured speech Course Vital Signs Vital signs: Vital Signs Temperature 97.6 F 06/18/24 00:15 Pulse Rate 78 06/18/24 00:15 Respiratory Rate 18 06/18/24 00:15 Blood Pressure 115/70 06/18/24 00:15 Pulse Oximetry 100 06/18/24 00:15 Oxygen Delivery Room Air 06/18/24 00:15 Temperature 97.6 F 06/18/24 00:15 Pulse Rate 78 06/18/24 00:15 Respiratory Rate 18 06/18/24 00:15 Blood Pressure 115/70 06/18/24 00:15 Pulse Oximetry 100 06/18/24 00:15 Oxygen Delivery Room Air 06/18/24 00:15 Medical Decision Making MDM Narrative Medical decision making narrative: -Course: 19-year-old female presenting with 2 complaints. First is UTI. Urine indicative infection. Will be started on Keflex. Second complaint is psychiatric. She stopped taking her medications. She is not homicidal suicidal or psychotic. She self were and realizes she needs to take her medications. She will resume them when she gets home. patient and mother are both okay with this plan. Given return precautions Vital Signs Vital Signs: Vital Signs Temperature 97.6 F 06/18/24 00:15 Pulse Rate 78 06/18/24 00:15 Respiratory Rate 18 06/18/24 00:15 Blood Pressure 115/70 06/18/24 00:15 Pulse Oximetry 100 06/18/24 00:15 Oxygen Delivery Room Air 06/18/24 00:15 Temperature 97.6 F 06/18/24 00:15 Pulse Rate 78 06/18/24 00:15 Respiratory Rate 18 06/18/24 00:15 Blood Pressure 115/70 06/18/24 00:15 Pulse Oximetry 100 06/18/24 00:15 Oxygen Delivery Room Air 06/18/24 00:15 Lab Data 06/18/24 01:50 06/18/24 01:50 Labs: Lab Results 06/18/24 06/18/24 06/18/24 Range/Units 01:21 01:22 01:50 WBC 11.2 H (4.5-10.0) K/mm3 RBC 4.20 (4.2-5.4) M/mm3 Hgb 13.4 (12.0-15.0) g/dL Hct 40.2 (37.0-47.0) % MCV 95.7 (80-100) fl MCH 31.9 (26-34) pg MCHC 33.3 (32-36) g/dl RDW 12.7 (11.5-14.5) % Plt Count 320 (150-375) k/mm3 MPV 9.1 (7.4-10.4) fl Immature Gran % (Auto) 0.3 (0-0.5) % Neut % (Auto) 56.6 (45.5-73.1) % Lymph % (Auto) 34.8 (18.3-44.2) % [place] % (Auto) 6.8 (2.6-8.5) % Eos % (Auto) 1.0 (0-4.4) % Baso % (Auto) 0.5 (0.2-1.2) % Lymph # (Auto) 3.89 H (0.9-3.2) K/mm3 [place] # (Auto) 0.8 H (0.1-0.6) K/mm3 Eos # (Auto) 0.1 (0-0.3) K/mm3 Baso # (Auto) 0.1 (0.0-0.1) K/mm3 Abs Immat Gran (auto) 0.03 (0.00-0.031) K/mm3 Absolute Neuts (auto) 6.3 (1.3-6.7) K/mm3 Absolute Nucleated RBC 0.000 (0.0-0.012) K/mm3 Nucleated RBC % 0.0 (0.0-0.2) % Sodium 141 (137-145) mmol/L Potassium 3.5 (3.4-5.0) mmol/L Chloride 104 (98-107) mmol/L Carbon Dioxide 25 (22-30) mmol/L Anion Gap 12 (4-12) mmol/L BUN 12 D (7-17) mg/dL Creatinine 0.55 L (0.7-1.0) mg/dL Estim Creat Clear Calc Not Reportable Estimated GFR > 60 (59 - ) Glucose 89 (65-110) mg/dL Calcium 9.4 (8.4-10.2) mg/dL Total Bilirubin 0.5 (0.2-1.3) mg/dL AST 17 (14-36) U/L ALT 13 (6-35) U/L Alkaline Phosphatase 59 (38-126) U/L Total Protein 8.0 (6.3-8.2) g/dL Albumin 4.6 (3.5-5.1) g/dL TSH (Reflex) 3.410 (0.465-4.68) uIU/mL Urine Color Yellow (Yellow) Urine Appearance Turbid H (Clear) Urine pH 6.0 (5.0-9.0) Ur Specific [place] 1.028 (1.001-1.035) Urine Protein Trace (Negative) mg/dL Urine Glucose (UA) Negative (Negative) mg/dL Urine Ketones Negative (Negative) mg/dL Ur Blood (Man) 1+ H (Negative) Urine Nitrate Negative (Negative) Urine Bilirubin Negative (Negative) Urine Urobilinogen 0.2 (<2.0) mg/dL Leukocyte Esterase Rfl 2+ H (Negative) DARIUS/UL Urine RBC 11-20 H (0-2) /hpf Urine WBC >100 H (0-3) /hpf Ur Squamous Epith Cells None seen (Few) /hpf Urine Bacteria 1+ H /hpf Urine Casts 0-2 Urine Opiates Screen Negative (Negative) Urine Methadone Screen Negative (Negative) Ur Barbiturates Screen Negative (Negative) Ur Phencyclidine Scrn Negative (Negative) Ur Amphetamine Screen Negative (Negative) U Benzodiazepines Scrn Negative (Negative) Urine Cocaine Screen Negative (Negative) U Cannabinoids Screen Negative (Negative) Ethyl Alcohol < 10 (<10) mg/dL Influenza A (RT-PCR) Negative (Negative) Influenza B (RT-PCR) Negative (Negative) RSV (RT-PCR) Negative (Negative) SARS-CoV-2 RNA (RT-PCR) Negative (Negative) Discharge Plan Discharge Clinical Impression: UTI (urinary tract infection), Psychiatric complaint Patient Disposition: Home, Self-Care Condition: Stable Instructions: Antibiotic Form, Dysuria (ED) Additional Instructions: Please take Keflex for UTI. Please resume your psychiatric medications. Follow up with her psychiatrist for further management. If you develop thoughts of harming herself or others return to the ED. Patient Language: Sammarinese Prescriptions: New cephalexin 500 mg capsule 500 mg PO Q12H Qty: 10 0RF No Action escitalopram oxalate 10 mg tablet 10 mg PO DAILY cariprazine 1.5 mg Capsule 1.5 mg PO DAILY topiramate [Topamax] 25 mg Capsule, Sprinkle 25 mg PO DAILY albuterol sulfate 90 mcg/actuation Hfa Aerosol Inhaler 2 puff INHALATION QID PRN (Reason: Shortness Of Breath Or Wheezing) hydrocodone-acetaminophen 5-325 mg tablet 1 tablet PO Q4H PRN (Reason: pain) Qty: 20 0RF Follow-up/Referrals: PHYSICIAN NOT ON STAFF,NONSTAFF [Primary Care Provider] -
[2024-06-18 03:59] VITALS: BP 119/76; PULSE 76; RESP 19; O2SAT 100
[2024-06-18 04:00] VITALS: BP 119/76; PULSE 76; RESP 19; O2SAT 100
[2024-06-18 13:36] LABS: BEDSIDEPREGUCG Negative (Negative)
== END 2024-06-18 04:02 | disposition home or self-care (01) ==
PROVIDERS: Emergency Provider Emergency Medicine
DX: N39.0 Urinary tract infection, site not specified (principal); F32.A Depression, unspecified; F90.9 Attention-deficit hyperactivity disorder, unspecified type; F41.9 Anxiety disorder, unspecified; Z20.822 Contact with and (suspected) exposure to COVID-19; F17.290 Nicotine dependence, other tobacco product, uncomplicated; T50.996A Underdosing of other drugs, medicaments and biological substances, initial encounter; Z91.128 Patient's intentional underdosing of medication regimen for other reason
CPT/HCPCS: 36415; 80053; 80307; 81001; 81025; 82077; 84443; 85025; 87086; 87186; 87637; 99283

== ENCOUNTER 2024-12-28 16:25 | Emergency (ER) | payer BC, SELFPAY ==
[2024-12-28 17:07] VITALS: BP 101/58; PULSE 89; RESP 20; TEMP 36.3; O2SAT 99
== END 2024-12-28 19:15 | disposition left against medical advice (07) ==
DX: M79.601 Pain in right arm (principal)
CPT/HCPCS: 99199

== ENCOUNTER 2024-12-28 19:19 | Emergency (ER) | payer BC, SELFPAY ==
--- OUTSIDE RECORDS SUMMARY | 2021-12-11 05:30 | XMS_ITS | Continuity of Care Document ---
Author Organization [facility] Address [address] [place] [address] Phone Care Team Providers Care Computing Services Director Name Role Phone Tabitha PT, DPT, Irais Unavailable Unavaila ble Procedures Procedure Date PT Re-evaluation Therapeutic Activities Therapeutic Exercise Therapeutic Activities Manual Therapy Therapeutic Exercise Therapeutic Activities Neuromuscular Re-Ed Manual Therapy Therapeutic Activities Manual Therapy Therapeutic Exercise Neuromuscular Re-Ed Therapeutic Exercise Therapeutic Activities Manual Therapy Therapeutic Exercise Therapeutic Activities PT Evaluation Low Complexity Manual Therapy Advance Directives Directive Yes / No Effective Date File Name No Information Encounters Encounter Description Practice Location Reason(s) For Visit Diagnoses Date Provider Providers Copied on Encounter [facility] [facility], [place], [place], [id number], tel:[phone] [place] No Information Tabitha Pierre Referring Provider: Kumar Rivera [address], [place], [address]. tel:[phone] [facility], [place], [place], [id number], tel:[phone] [place] No Information Lu Irais. . Referring Provider: Daysi [address] [address], [place], [place], [facility]. tel:[phone] [address], [place], [place], [id number], tel:[phone] [place] No Information Lu Irais. . Referring Provider: Daysi Blackburn [address] [address], [place], [place], [facility]. tel:[phone] [place] [address], [id number], tel:[phone] [place] No Information Lu Irais. . Referring Provider: Daysi Blackburn [address] [address], [place], [place], [facility]. tel:[phone] [address], [place], [id number], tel:[phone] [place] No Information Lu Irais. . Referring Provider: Daysi Blackburn [address] [address], [place], [place], [facility]. tel:[phone], [id number], tel:[phone] [place] No Information Lu Irais. . Referring Provider: Daysi Blackburn [address] [address], [place], [place], [facility]. tel:[phone] Family History Family Member Type Diagnosis Age At Onset No Information Payers Payer name Insurance type Covered alliance party ID Authorthaliaa edgar(s) [facility] [place] [id number] Social History Type Description Quantity Date Captured Comments Sex Female Smoking Status No Information Chief Complaint And Reason For Visit No Information Reason For Referral Reason For Referral No Information History Of Present Illness Encounter Date Complaint History Of Prese nt Illness No Information Functional Status Date Functional Assessmen t No Information Instructions Date Instruction Additional Infor mation No Information Assessments Type Assessment Date No Information Patient Care Teams Name Effective Dates (start - stop) Status Members No Information
--- OUTSIDE RECORDS SUMMARY | 2021-12-11 05:30 | XMS_ITS | Continuity of Care Document ---
Author Organization [facility] Address [address] [place] [address] Phone Care Team Providers Care Prosthetics Lab Technician Name Role Phone Tabitha PT, DPT, Irais [...] Diagnoses Date Provider Providers Copied on Encounter [facility], [place], [place], [id number], tel:[phone] [place] No Information Tabitha Pierre Referring Provider: Kumar Rivera [address], [place], [address]. tel:[phone] [facility], [place], [place], [id number], tel:[phone] [place] No Information Lu Irais. . Referring Provider: Daysi [address] [address], [place], [place], [facility]. tel:[phone] [address], [place], [place], [id number], tel:[phone] [place] No Information Lu Irais. . Referring Provider: Daysi Blackburn [address] [address], [place], [place], [facility]. tel:[phone] [place] [address], [id number], tel:[phone] [place] No Information Lu Irais. . Referring Provider: Daysi Blackburn [address] [address], [place], [place], [facility]. tel:[phone] [address], [place], [id number], tel:[phone] [place] No Information Lu Irais. . Referring Provider: Daysi Blackburn [address] [address], [place], [place], [facility]. tel:[phone], [id number], tel:[phone] [place] No Information Lu Irais. . Referring Provider: Daysi Blackburn [address] [address], [place], [place], [facility]. tel:[phone] Family History Family Member Type Diagnosis Age At Onset No Information Payers Payer name Insurance type Covered constitution party ID Authorthaliaa edgar(s) [facility] [id number] Social History Type Description Quantity Date Captured [...]
--- OUTSIDE RECORDS SUMMARY | 2023-08-25 05:00 | XMS_ITS ---
Author Organization [facility] Address [address] [place] [address] Care Team Providers Care Immigration Attorney Name Role Phone Amirah Palacios Primary Care Provider REASON FOR VISIT 1 Month Psych F/U & Med Refill Social History Sex Assigned At : Social History Observation Description Sex Assigned At Female Encounters Encounter Location Date Provider Diagnosis [address] [place] [address] 08/25/2023 Amirah Palacios Plan Of Treatment No Information Progress Notes * Merlyn ROBLERODOB:[birth year] (19 yo F)Acc No.[id number]:08/25/2023 UNLOCKED PROGRESS NOTE Patient: Merlyn FISHER Provider: Saad Palacios DNP, APRN, PMHNP-BC :2005 A ge:18 Y S ex:Female Date:08/25/2023 [facility] [id number] Subjective: * Chief Complaints: * 1 . 1 Month Psych F/U & Med Refill. * Medical History: Objective: * Vitals: Assessment: Plan: * Treatment: * * Electronic signature of Sherley Eckert , [id number] on 12/28/2024 at 07:22 PM CDT Sign off status: Pending * Provider: Saad Palacios DNP, APRN, PMHNP-BC Date: 0 08/25/2023 Generated for Printing/Faxing/eTransmitting on: 0 12/28/2024 07:22 PM CDT
--- NOTE | 2024-12-28 19:22 | ED.SKABFB ---
HPI - Skin/Abscess/Foreign Bdy General Chief complaint: Skin/Abscess/Foreign Body Stated complaint: bug bite on right side body Time Seen by Provider: 12/28/24 19:22 Source: patient Mode of arrival: ambulatory Limitations: no limitations History of Present Illness HPI narrative: Merlyn is a 19-year-old female patient presenting to the clinic today with complaints of a possible insect bite to her right lateral chest wall. She reports she is having pain with movement over the right lateral chest wall area. States she was installing an air conditioner in her window and was seen that a lot of bugs got in side her room and she thinks she may have been bit by an insect. Denies any itching to the area. There is only pain with movement when she puts her arm posteriorly over the lateral chest wall. Denies any shortness of breath or chest pain. Has not tried any Tylenol or ibuprofen. Rates pain 8/10 with movement but no pain at rest Related Data Home Medications ?Medication ?Instructions ?Recorded ?Confirmed ?Last Taken ?Type escitalopram oxalate 10 mg tablet 10 mg PO DAILY 08/31/23 01/20/24 Unknown History topiramate 25 mg sprinkle capsule 25 mg PO DAILY 01/12/24 01/20/24 Unknown History (Topamax) lisdexamfetamine 40 mg capsule mg 12/28/24 Unknown History (Vyvanse) Allergies Allergy/AdvReac Type Severity Reaction Status Date / Time No Known Allergies Allergy Verified 12/28/24 19:31 Review of Systems Review of Systems: Pertinent positives per HPI. Patient denies any fever, chills, rash, headache, visual changes, dizziness, cough, runny nose, sore throat, shortness of breath, chest pain, palpitations, nausea, vomiting, diarrhea, constipation, abdominal pain, or any urinary issues. [facility]LY [facility] Past Medical History Medical History Diarrhea Nausea Abdominal bloating Constipation UTI (urinary tract infection) Surgical History Surgical History No pertinent past surgical history Social History Social History Smoking status: Never smoker Tobacco type: e-cigarettes/vaping Additional smoking assessment comments: VAPING FOR 1 YR Alcohol intake: current Alcohol use details: 2 PER MONTH Substance use: never Substance use type: marijuana Living arrangements: with family Spiritual care concerns: No Comments At the time of my signature, I reviewed and agree with the nursing past medical, surgical, social, and family history. There is no relevant family history pertinent to the patient complaint. Exam Narrative: General: Well-developed, well nourished, in no apparent distress Head: Normocephalic, atraumatic. Cardio: Regular rate and rhythm, s1 and s2 normal, no murmur appreciated. Pain to the lateral chest wall with moving her arm and elbow posteriorly, no redness, swelling, insect bite, erythema, or mass Resp: Clear to auscultation bilaterally, no rhonchi, rales, wheezing or rubs. Integumentary: [place], warm, and dry, intact without lesion, no rashes. Course Course Emergency Course: Portions of this record may have been created with voice recognition software. Level of Care: Express Care Visit Vital Signs Vital signs: Vital signs reviewed MDM - Skin/Abscess/Foreign Bdy MDM Narrative Medical decision making narrative: At the time of visit patient is resting comfortably on the exam table. Patient appears to be nontoxic. Complaints of a possible insect bite to her right lateral chest wall. She reports she is having pain with movement over the right lateral chest wall area. States she was installing an air conditioner in her window and was seen that a lot of bugs got in side her room and she thinks she may have been bit by an insect. Denies any itching to the area. There is only pain with movement when she puts her arm posteriorly over the lateral chest wall. Denies any shortness of breath or chest pain. Pain is not worse with inspiration. On exam patient has tenderness to palpation over the right lateral chest wall just below the axilla. No obvious redness, swelling, erythema, wound, or insect bite. Plan: I suspect patient has a chest wall strain. Patient reporting pain only when she is moving her arm/elbow posteriorly. Supportive measures were discussed with the patient and they voiced understanding discharge instructions and agrees to treatment plan. Return precautions reviewed Differential Diagnosis Differential diagnosis: Likely abscess of skin or subcutaneous tissue, cellulitis, eczema, insect bites, contact dermatitis and other (Lateral chest wall strain) Discharge Plan Discharge Clinical Impression: Muscle strain Patient Disposition: Home Condition: Stable Instructions: Antibiotic Form, Muscle Strain (ED) Additional Instructions: May take Tylenol or ibuprofen as needed for pain. May use heat or ice to the affected area May use blue emu, lidocaine patches, or asper cream to affected area- do not apply heat or ice directly over cream- can cause burn. Follow up with your PCP in 3-5 days if symptom persist. Patient Language: Solomon Islander Prescriptions: No Action escitalopram oxalate 10 mg tablet 10 mg PO DAILY cariprazine 1.5 mg Capsule 1.5 mg PO DAILY topiramate [Topamax] 25 mg Capsule, Sprinkle 25 mg PO DAILY albuterol sulfate 90 mcg/actuation Hfa Aerosol Inhaler 2 puff INHALATION QID PRN (Reason: Shortness Of Breath Or Wheezing) hydrocodone-acetaminophen 5-325 mg tablet 1 tablet PO Q4H PRN (Reason: pain) Qty: 20 0RF cephalexin 500 mg capsule 500 mg PO Q12H Qty: 10 0RF Follow-up/Referrals: UNKNOWN,DOCTOR [Non-Staff] Time of Disposition: 19:33 Quality NIHSS Nursing Documentation ED NIHSS nursing documentation: reviewed/agree
--- OUTSIDE RECORDS SUMMARY | 2024-12-28 19:23 | XMS_ITS | Clinical Summary ---
Author Organization [facility] Address [address] [place] [address] Care Team Providers Care Cold Press Operator Name Role Phone Caranga Karla [employer] Primary Care Provider + Source Comments [facility],non-owned Affiliates and Associated Physician Practices is amultiple site organization consisting of ambulatory clinics and hospital sitesin [place], [place], [place] and [place]. This disclosure is being madepursuant to the Care Everywhere program and may not contain all information available regarding this patient. Last updated 18.[facility] Allergies No known active allergies Medications * Be aware that medications may not be up to date on this document. Alwaysverify current medications with the patient. Norethin Hawk-Eth Estrad-FE (TAYTULLA) 1-20 MG-MCG(24) CAPS Take by mouth at bedtime Active ALBUTEROL IN Inhale by mouth every 4 hours as needed Active acetaminophen (TYLENOL) 325 MG tablet Take 2 tablets by mouth every 6 hours as needed for Fever or Pain Maximum allowable Acetaminophen amount = 4 Grams (4000 mg) / 24 hours. 40 tablet 07/30/20 19 Active ibuprofen (MOTRIN) 200 MG tablet Take 2 tablets by mouth every 6 hours as needed for Pain 40 tablet 11/29/19 19 Active medroxyPROGES TERone (DEPO-PROVERA ) 150 MG/ML vial medroxyprogesterone 150 mg/mL intramuscular suspension Active polyethylene glycol 3350 (MIRALAX) 17 GM/SCOOP powder Take 17 g by mouth once daily 850 g 7 01/09/20 20 Active Active Problems Problem Noted Date Diagnosed [...] 05/29/2014 recent onset inflammation/discomfort; deep shave removal Family History Medical History Relation Name Comments Asthma Mother Relation Name Status Comments Mother history of ovar marisa cyst Social History Tobacco Use Types Packs/Day Years Used Date Smoking Tobacco: Never Smokeless Tobacco: Never Tobacco Cessation:Counseling Given: No Alcohol Use Standard Drinks/Week Comments No 0 (1 standard drink = 0.6 oz pur e alcohol) Comments No Sex and Gender Information Value Date Recorded Sex Assigned at Not on file Legal Sex Female 5:43 AM NAMED ACCOUNT EXECUTIVE Gender Identity Not on file Sexual Orientation Not on file Last Filed Vital Signs Vital Sign Reading Time Taken Comments Blood Pressure 108/61 06/04/2024 2:45 AM NAMED ACCOUNT EXECUTIVE Pulse 78 06/04/2024 2:45 AM NAMED ACCOUNT EXECUTIVE Temperature 36.6 C (97.8 F) 06/04/2024 2:45 AM NAMED ACCOUNT EXECUTIVE Respiratory Rate 20 06/04/2024 2:45 AM NAMED ACCOUNT EXECUTIVE Oxygen Saturation 99% 06/04/2024 2:45 AM NAMED ACCOUNT EXECUTIVE Inhaled Oxygen Concentration - - Weight 72.9 kg (160 lb 11.5 oz) 01/09/2020 2:10 PM CDT Height 162.5 cm (5' 3.98) 01/09/2020 2:10 PM CD T Body Mass Index 27.61 01/09/2020 2:10 PM CDT Plan of Treatment Health Maintenance Due Date Last Done Comments HIV SCREENING 01/12/2019 HPV VACCINE (1 - 3-dose series) 01/12/2019 MENINGOCOCCAL (Group B) VACCINE SHARED DECISION-MAKING (1 of 2 - Standard) 2020 HEPATITIS C SCREENING 01/08/2022 DTAP/TDAP/TD VACCINES (1 - Tdap) 01/12/2023 HEPATITIS B VACCINE (1 of 3 - 19+ 3-dose series) 01/12/2023 COVID-19 VACCINE (3 - 2023- season) 2024 07/09/2021, 03/28/2021 DEPRESSION SCREENING 05/02/2024 CHLAMYDIA/GONORRHEA SCREENING 09/28/2024 09/29/2023 INFLUENZA VACCINE (#1) 2024 , 06/10/2023, 07/06/2022, Additional history exists ZOSTER VACCINE (1 of 2) 01/12/2054 HIB VACCINE Aged Out No longer eligi ble based on patient's age to complete this topic MENINGOCOCCAL GROUPS A/C/Y/W VACCINE Aged Out No longer eligible based on patient's age to complete this topic PNEUMOCOCCAL VACCINE Aged Out No long er eligible based on patient's age to [place] [address] [place] [address] [facility] [place] [address] [place] [address] ANTHEM Member Subscriber Plan / Payer (Ef fective 2017-Present) Name:Merlyn Roblero Relation to Subscriber:Child Name:POOJA ROBLERO Subscriber ID:Not on file (Home) Address: [address] [place], [place] [address] [address] Payer ID:[id number] (NAIC) Type:PPO Address: [address] ANTHEM ANTHEM Care Teams Cold Press Operator Relationship Specialty Start Date End Date Karla Galan APRN-ELO [address] [address] PCP - General Nurse Practitioner 01/09/20
--- OUTSIDE RECORDS SUMMARY | 2024-12-28 19:23 | XMS_ITS | Patient Health Record ---
Author Organization [facility] Address [address] [place] [address] Care Team Providers Care Watch Parts Inspector Name Role Phone Amirah Palacios Primary Care Provider [phone] Allergies Allergen (clinical drug ingredient) Drug/Non Drug Allergy documented on EMR Reaction Allergy Type Onset Date Status No Known Drug Allergy Unknown Drug Allergy Active Reason For Referral No Information Medications Medication SIG (Take, Route, Frequency, Duration) Notes Start Date End Date Status Amphetamine-Dextroamphet ER 25 MG 1 capsule in the morning Orally Once a day; Duration: 30 days 09/28/2023 Active Vraylar 4.5 MG 1 capsule Orally Onc e a day; Duration: 30 days Active Escitalopram Oxalate 20 MG 1 tablet Oral ly Once a day; Duration: 30 days Active Social History Tobacco Use: [...] Problem Status W/U Status Risk Notes Problem ADHD (attention deficit hyperactivity disorder) (F90.9) Active confirmed Problem Generalized anxiety disorder (47979232) JASON (generalized anxiety disorder) (F41.1) Active confirmed Problem Bipolar 2 disorder (02672052) Bipolar 2 disorder (F31.81) Active confirmed Plan Of Treatment No Information Insurance Providers Payer Name Payer Address Payer Phone Subscriber Number Group Number Insured Name Patient Relationship to Insured Coverage Start Date Coverage End Date [facility] [address] [place] [address] [id number] Merlyn Mota Self - patient is the insured 3 Medical (General) History Medical History History ICD Code bipolar disorder ADHD Surgical History Surgery Date(Month/Year) nose 2004 Hospitalization History Reason Date(Month/Year)
--- OUTSIDE RECORDS SUMMARY | 2024-12-28 19:23 | XMS_ITS | Encounter Summary ---
Author Organization [facility] Address [address] [place] [address] Care Team Providers Care Film Touch Up Inspector Name Role Phone Elaine Hill MD Primary Care Provider Elaine Hill MD Primary Care Provider [phone] Karla Galan APRN-LOG CARRIER OPERATOR Primary Care Provider + Reason for Visit * Reason Onset Date Comments Results 06/07/2014 Encounter Details Date Type Department Care Team (Late st Contact Info) Description 06/07/2014 Telephone [facility] - Dermatology [address] [place] [address] Nicole Urbina MD [address] [facility] [address] [place] [address] Results Social History Tobacco Use Types Packs/Day Years Used Date Smoking Tobacco: Never Alcohol Use Standard Drinks/Week Comments Not Asked 0 (1 standard drink = 0.6 oz pur e alcohol) Comments Unknown Sex and Gender Information Value Date Recorded Sex Assigned at Not on file Legal Sex Female 5:43 AM PARAMEDIC INSTRUCTOR Gender Identity Not on file Sexual Orientation Not on file documented as of this encounter Miscellaneous Notes * Telephone Encounter - Henry Rascon MD - 06/19/2014 1:13 PM CST Called patient's parent at [phone] (M) Discussed with her that outside consultation for the path lab at [facility] also concurredd with our benign findings for the biopsy. Mom appreciative of the phone call Henry Rascon MD MEDIC INSTRUCTOR * Telephone Encounter - Henry Rascon MD - 06/07/2014 10:36 AM CST Mom called back 1/2 hour later with more questions. Called her at [phone] Discussed the results with her in detail. 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 We have sent the specimen to another lab - [facility] for confirmation. Will follow up for the same Also discussed with dad to follow up in the clinic of the lesion recurs or they notice atypical changes at the biopsy site Mom also mentioned that the site is taking longer to heal. No fevers or chills. Reassured her about the healing process and continue the recommended wound care Mom appreciated the phone call Henry Rascon MD MEDIC INSTRUCTOR * Telephone Encounter - Henry Rascon MD - 06/07/2014 8:28 AM CST 06/07/2014 Called patient's parent at [phone] (M) Discussed the results of the biopsy with her dad Mr. Aroldo Villatoro [phone] (M) - Benign CMP (Not present at margin). 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 We have sent the specimen to another lab - [facility] for confirmation. Will follow up for the same Also discussed with dad to follow up in the clinic of the lesion recurs or they notice atypical changes at the biopsy site Dad stated understanding and appreciated the phone call Henry Rascon MD MEDIC INSTRUCTOR documented in this encounter Plan of Treatment Not on file documented as of this encounter Visit Diagnoses Not on filedocumented in this encounter Additional Health Concerns Infection Onset Date Last Indicated Resolved Time COVID-19 Under Investigation 06/04/2024 06/04/2024 06/04/2024 4:26 AM PARAMEDIC INSTRUCTOR documented as of this encounter Care Teams Film Touch Up Inspector Relationship Specialty Start Date End Date Elaine Hill MD [address] [address] PCP - General 02/25/10 08/17/16 Elaine Hill MD [address] [address] PCP - General Pediatrics 08/18/16 01/08/20 Karla Galan APRN-ELO [address] [id number] PCP - General Nurse Practitioner 01/09/20 documented as of this encounter
--- OUTSIDE RECORDS SUMMARY | 2024-12-28 19:23 | XMS_ITS | Patient Health Record ---
Author Organization [facility] Address [address] [place] [address] Care Team Providers Care Salvationist Name Role Phone Hyun Gamino Unavailable [phone] Reason For Referral No Information Medications Medication SIG (Take, Route, Frequency, Duration) Notes Start Date End Date Status Vraylar 3 mg Capsule Oral Active ProAir HFA 108 (90 Base) MCG/ACT Aerosol Solution Inhalation Act edmund Gabapentin 100 MG Capsule Oral Active Vyvanse 30 MG Capsule Oral Active Phentermine HCl 37.5 MG Tablet Oral Active Amoxicillin-Pot Clavulanate 875-125 MG Tablet Oral Active Methylphenidate HCl ER 18 MG Tablet Extended Release Oral A ctive Ciprofloxacin HCl 500 MG Tablet Oral Active Phenazopyridine HCl 200 MG Tablet Oral Active Trintellix 5 MG Tablet Oral Active Phentermine HCl 30 mg Capsule Oral Active Lisdexamfetamine Dimesylate 40 MG Capsule Oral Act edmund Vyvanse 40 MG Capsule Oral Active Cephalexin 500 MG Capsule Oral Active Gabapentin 300 MG Capsule Oral Active Vraylar 1.5 mg Capsule Oral Active ARIPiprazole 5 MG Tablet Oral Active Fluconazole 150 MG Tablet Oral Active Trimethoprim 100 MG Tablet Oral Active Solosec 2 gram Packet Oral *Pick strength-form from [employer] for eRX* Active Ciprofloxacin HCl 250 MG Tablet Oral Active Nitrofurantoin Monohyd Macro 100 MG Capsule Oral Active Methylphenidate HCl ER 27 MG Tablet Extended Release Oral A ctive ARIPiprazole 2 MG Tablet Oral Active levoFLOXacin 500 MG Tablet Oral Active predniSONE 20 MG Tablet Oral Active Sulfamethoxazole-Trimethop rim 800-160 MG Tablet Oral Active FLUoxetine HCl 10 MG Tablet Oral Active methylPREDNISolone 4 MG Tablet Therapy Pack Oral Active Plan Of Treatment No Information Insurance Providers Payer Name Payer Address Payer Phone Subscriber Number Group Number Insured Name Patient Relationship to Insured Coverage Start Date Coverage End Date [employer] [employer] [address] [place] [address] [id number] LUISA ROBLERO Self - patient is the insured
--- OUTSIDE RECORDS SUMMARY | 2024-12-28 19:23 | XMS_ITS | Clinical Summary ---
Author Organization [facility] Address [address] [place] [address] Care Team Providers Care Manager Discovery Name Role Phone Kody Francisco MD Primary Care Provider Fazal wilderle Allergies Active Allergy Reactions Criticality Noted Date Comments Latex Rash,Swelling Low 08/23/2024 Nickel Rash,Swelling Low 08/23/2024 Medications escitalopram oxalate (LEXAPRO) 10 mg tablet Take 20 mg by mouth daily. 01/04/2024 Active lisdexamfetamine (Vyvanse) 30 mg capsule Take 30 mg by mouth daily in the morning. 12/20/2022 Active albuterol sulfate HFA 90 mcg/actuation aerosol inhaler INHALE 2 PUFFS INTO THE LUNGS EVERY 6 HOURS NEEDED FOR WHEEZE Active topiramate (TOPAMAX) 50 mg tabletIndication s:Binge eating disorder, unspecified severity Take 1 Tablet (50 mg) by mouth daily. 30 Tablet 06/07/2024 Active Active Problems Problem Noted Date Diagnosed [...] Date Resolved Date Bipolar 1 disorder 11/05/2022 Anxiety 12/26/2021 06/06/2024 Encounters Date Type Department Care Team Description 12/05/2024 External Device Data [facility] Provider, Abstract 11/27/2024 Telephone [facility] [address] [place] [address] Kody Francisco MD Needs Appointment 11/14/2024 External Device Data [facility] Provider, Abstract 10/30/2024 External Device Data [facility] Provider, Abstract 10/17/2024 External Device Data [facility] Provider, Abstract 10/02/2024 External Device Data [facility] Provider, Abstract 10/02/2024 External Device Data [facility] Provider, Abstract 10/02/2024 External Device Data [facility] Provider, Abstract [...] PERTUSSIS, HEPATITIS B, AND INACTIVATED POLIOVIRUS VACCINE ([id number]), 0.5ML, IM 07/15/2005,2004,2004,03/02 (VARIVAX)(12 MOS UP)VARICELL A VIRUS VACCINE (PF) 0.5 ML, SUB CUT 02/13/2010,2005 HIB, Unspecified Formulation 07/20/2005, 2004,2004,03/02 Hepatitis A Vaccine, Unspeci fied Formulation 02/13/2010,2006 INFLUENZA VACCINE QUADRIVALE NT 6 MOS UP IM 02/06/2019 Influenza, Unspecified Formulation 06/10,07/06/2022,02/06/2019,01/30,07/20/2005,05/13/2005 Pneumococcal 7-valent conjug ate vaccine IM 07/20/2005,05/13/2005,2004,05/02,2004 Family History Medical History Relation Name Comments Other Maternal Aunt cervical / lisa rine cancer Colon Cancer Maternal Grandfather Breast Cancer Mother Relation Name Status Comments Maternal Aunt Alive Maternal Grandfather Mother Social History Tobacco Use Types Packs/Day Years Used Date Smoking Tobacco: Never Smokeless Tobacco: Never Tobacco Cessation:Counseling Given: Not Answered Alcohol Use Standard Drinks/Week Comments Yes 0 (1 standard drink = 0.6 oz pur e alcohol) monthly Feeling Safe Answer Date Recorded Are you in a relationship wi th someone who hurts you emotionally and/or physically? No 09/11/2024 Comments No Sex and Gender Information Value Date Recorded Sex Assigned at Female 05/31/2024 8:03 AM BARIATRIC NURSE Legal Sex Female 1:02 PM CDT Gender Identity Not on file Sexual Orientation Straight 05/31/2024 8: 03 AM BARIATRIC NURSE Last Filed Vital Signs Vital Sign Reading Time Taken Comments Blood Pressure 103/59 09/11/2024 1:36 PM CDT Pulse 64 09/11/2024 1:36 PM CDT Temperature 36.4 C (97.6 F) 09/11/2024 1:11 PM CDT Respiratory Rate 16 09/11/2024 1:36 PM CDT Oxygen Saturation 96% 09/11/2024 1:36 PM CDT Inhaled Oxygen Concentration - - Weight 81.6 kg (180 lb) 09/11/2024 11:23 AM CDT Height 162.6 cm (5' 4) 09/11/2024 11:23 AM CDT Body Mass Index 30.9 09/11/2024 11:23 AM CDT Plan of Treatment Health Maintenance Due Date Last Done Comments CHLAMYDIA SCREENING (ANNUAL) 11-24 YEARS 01/12/2015 INFLUENZA VACCINE (#1) 2024 03/22/2024, 2018 DTAP/TDAP/TD VACCINES (8 - T d or Tdap) 10/25/2033 10/26/2023, 02/17/2016, 02/13/2010, Additional history exists HEPATITIS B VACCINES Completed 07/15/2005, 2004, 2004, Additional history exists HPV VACCINES Completed 12/01/2016, 02/17/2016 Insurance OUT OF STATE BCBS BLUE ACCESS/TRUE BLUE PPO Advance Directives For more information, please contact: [phone] * Full Code (Latest Code Status on File) Date Activated Date Inactivated Comments 09/11/2024 11:15 AM 09/11/2024 4:11 PM Care Teams Manager Discovery Relationship Specialty Start Date End Date Kody Francisco MD PCP - General Internal Medicine 06/07/24
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
[2024-12-28 19:28] VITALS: BP 112/68; PULSE 73; RESP 20; TEMP 36.3; O2SAT 100
== END 2024-12-28 19:39 | disposition home or self-care (01) ==
PROVIDERS: Emergency Provider Nurse Practitioner Family
DX: S29.011A Strain of muscle and tendon of front wall of thorax, initial encounter (principal); X58.XXXA Exposure to other specified factors, initial encounter
CPT/HCPCS: 99212; G0463

== ENCOUNTER 2025-01-22 13:05 | Outpatient (CLI) | payer BC, SELFPAY ==
--- OUTSIDE RECORDS SUMMARY | 2023-08-25 05:00 | XMS_ITS ---
Author Organization [facility] Address [address] [place] [address] Care Team Providers Care Plexiglas Former Name Role Phone Amirah Palacios Primary Care Provider [phone] REASON FOR VISIT 1 Month Psych F/U & Med Refill Social History Sex Assigned At : Social History Observation Description Sex Assigned At Female Encounters Encounter Location Date Provider Diagnosis [address] [place] [address] 08/25/2023 Amirah Palacios Plan Of Treatment No Information Progress Notes * Merlyn ROBLERODOB:[birth year] (20 yo F)Acc No.[id number]:08/25/2023 UNLOCKED PROGRESS NOTE Patient: Merlyn FISHER Provider: Saad Palacios DNP, APRN, PMHNP-BC :2005 A ge:18 Y S ex:Female Date:08/25/2023 [facility] [id number] Subjective: * Chief Complaints: * 1 . 1 Month Psych F/U & Med Refill. * Medical History: Objective: * Vitals: Assessment: Plan: * Treatment: * * Electronic signature of Sherley Eckert , [id number] on 01/22/2025 at 01:16 PM CDT Sign off status: Pending * Provider: Saad Palacios DNP, APRN, PMHNP-BC Date: 0 08/25/2023 Generated for Printing/Faxing/eTransmitting on: 0 01/22/2025 01:16 PM CDT
--- OUTSIDE RECORDS SUMMARY | 2025-01-22 13:16 | XMS_ITS | Encounter Summary ---
Author Organization [facility] Address [address] [facility] [place] [address] Care Team Providers Care Home Care Rn Name Role Phone Elaine Hill MD Primary Care Provider [phone] Elaine Hill MD Primary Care Provider [phone] Karla Galan APRN-PUBLIC INFORMATION DIRECTOR Primary Care Provider + Reason for Visit * Reason Onset Date Comments Results 06/07/2014 Encounter Details Date Type Department Care Team (Late st Contact Info) Description 06/07/2014 Telephone [facility] - Dermatology [address] [place] [place] [address] Nicole Urbina MD [address] [facility] [address] [place] [address] Results Social History Tobacco Use Types Packs/Day Years Used Date Smoking Tobacco: Never Alcohol Use Standard Drinks/Week Comments Not Asked 0 (1 standard drink = 0.6 oz pur e alcohol) Comments Unknown Sex and Gender Information Value Date Recorded Sex Assigned at Not on file Legal Sex Female 5:43 AM DIVER'S TENDER Gender Identity Not on file Sexual Orientation Not on file documented as of this encounter Miscellaneous Notes * Telephone Encounter - Henry Rascon MD - 06/19/2014 1:13 PM CST Called patient's parent at [phone] (M) Discussed with her that outside consultation for the path lab at [facility] also concurredd with our benign findings for the biopsy. Mom appreciative of the phone call Henry Rascon MD R'S TENDER * Telephone Encounter - Henry Rascon MD - 06/07/2014 10:36 AM CST Mom called back 1/2 hour later with more questions. Called her at [phone] Discussed the results with her in detail. 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 We have sent the specimen to another lab - [facility] for confirmation. Will follow up for [...] appreciated the phone call Henry Rascon MD R'S TENDER * Telephone Encounter - Henry Rascon MD - 06/07/2014 8:28 AM CST 06/07/2014 Called patient's parent at [phone] (M) Discussed the results of the biopsy with her dad Mr. Aroldo Villatoro [phone] (M) - Benign CMP (Not present at margin). 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 We have sent the specimen to another lab - [facility] for confirmation. Will follow up for the same Also discussed with dad to follow up in the clinic of the lesion recurs or they notice atypical changes at the biopsy site Dad stated understanding and appreciated the phone call Henry Rascon MD R'S TENDER documented in this encounter Plan of Treatment Not on file documented as of this encounter Visit Diagnoses Not on filedocumented in this encounter Additional Health Concerns Infection Onset Date Last Indicated Resolved Time COVID-19 Under Investigation 06/04/2024 06/04/2024 06/04/2024 4:26 AM DIVER'S TENDER documented as of this encounter Care Teams Home Care Rn Relationship Specialty Start Date End Date Elaine Hill MD [address] [address] PCP - General 02/25/10 08/17/16 Elaine Hill MD [address] [address] PCP - General Pediatrics 08/18/16 01/08/20 Karla Galan APRN-ELO [address] [id number] PCP - General Nurse Practitioner 01/09/20 documented as of this encounter
--- OUTSIDE RECORDS SUMMARY | 2025-01-22 13:16 | XMS_ITS | Clinical Summary ---
Author Organization [facility] Address [address] [place] [address] Care Team Providers Care Salvationist Name Role Phone Kody Sumner MD Unavailable [phone] Linda Benavidez NP Primary Care Provider + [phone] Allergies No known active allergies Medications cariprazine [...] Generalized anxiety disorder 01/04/2024 Bipolar 1 disorder ([facility]) 01/04/2024 Constipation, unspecified constipation type 05/2 12/2023 [...] Encounters Date Type Department Care Team Description 01/03/2025 7:31 PM CDT - 01/03/2025 8:43 PM CDT Emergency [facility] Emergency Room [address] [place] [address] Yoel Higginbotham MD Dizziness Discharge Disposition: Home or Self Care (Routine Discharge) 01/03/2025 Travel from Last 3 Months Immunizations Immunization Administration Dates Next Due [id number] (Pediarix) 07/15/2005,06/30,2004,03/02 DTaP-IPV (Kinrix) 02/13/2010 Dtap (Acel-Immune) [...] Sex Assigned at Female 06/20/2024 3:18 AM MEDICAL TRANSCRIPTIONIST Legal Sex Female 8:54 AM MEDICAL TRANSCRIPTIONIST Gender Identity Female 06/20/2024 3:18 AM MEDICAL TRANSCRIPTIONIST Sexual Orientation Straight 06/20/2024 3: 18 AM MEDICAL TRANSCRIPTIONIST Last Filed Vital Signs Vital Sign Reading Time Taken Comments Blood Pressure 110/60 01/03/2025 8:38 PM CDT Pulse 73 01/03/2025 8:01 PM CDT Temperature 36.5 C (97.7 F) 01/03/2025 8:38 PM CDT Respiratory Rate 17 01/03/2025 8:01 PM CDT Oxygen Saturation 97% 01/03/2025 8:01 PM CDT Inhaled Oxygen Concentration - - Weight 72.6 kg (160 lb) 01/03/2025 7:38 PM CDT Height 162.6 cm (5' 4) 01/03/2025 7:38 PM CDT Body Mass Index 27.46 01/03/2025 7:38 PM CDT Plan of Treatment Health Maintenance Due Date Last Done Comments Cervical Cancer Screening Pap Smear (Age 21 to 29) Every 3 Years 2004 Cervical Cancer Screening 2004 Annual Physical 01/12/2007 Meningococcal B Vaccine (1 of 2 - Standard) 2020 Hepatitis C 01/12/2022 Chlamydia Screening Females ages 16-24 09/28/2024 09/29/2023, 06/30/2023, 05/14/2022, Additional history exists COVID-19 Vaccine ( season) 2024 07/09/2021, 03/28/2021 DTaP, Tdap and Td Vaccines (8 - [...] HPV Vaccines Completed 12/01/2016, 02/17/2016 PHQ-2 (Physician [place]) Completed 07/11/2024 RSV Immunizations Under 20 Months Aged Out No longer eligible based on patient's age to complete this topic Procedures Procedure Name Priority Date/Time Associated Diagnosis Comments DRUG SCREEN RAPID STAT 01/03/2025 8:0 2 PM CDT TEST URINE STAT 01/03/2025 8:02 PM CDT URINALYSIS, AUTO, COMPLETE STAT 01/03/2025 8:02 PM CDT TSH W/REFLEX STAT 01/03/2025 7:51 PM CDT ETHANOL STAT 01/03/2025 7:51 PM CDT MAGNESIUM STAT 01/03/2025 7:51 PM CDT COMPREHENSIVE METABOLIC PANEL STAT 01/03/2025 7:51 PM CDT CBC W/DIFF AUTOMATED STAT 01/03/2025 7:51 PM CDT CHLAMYDIA GC RNA STAT 09/29/2023 7:18 AM CDT from Last 3 Months or Most Recently Relevant to Health Maintenance Results * (ABNORMAL) DRUG SCREEN RAPID (01/03/2025 8:02 PM CDT) AMPHETAMINE (U) NONE DETECTED NONE DETECTED 01/03/2025 8:34 PM CDT [facility] BARBITURATES SCREEN (U) NONE DETECTED NONE DETECTED 01/03/2025 8:34 PM CDT [facility] BENZODIAZEPINES SCREEN (U) NONE DETECTED NONE DETECTED 01/03/2025 8:34 PM CDT [facility] BUPRENORPHINE SCREEN (U) NONE DETECTED NONE DETECTED 01/03/2025 8:34 PM CDT [facility] COCAINE METABOLITES (U) NONE DETECTED NONE DETECTED 01/03/2025 8:34 PM CDT [facility] METHAMPHETAMINE (U) NONE DETECTED NONE DETECTED 01/03/2025 8:34 PM CDT [facility] METHADONE (U) NONE DETECTED NONE DETECTED 01/03/2025 8:34 PM CDT [facility] OPIATE SCREEN (U) NONE DETECTED NONE DETECTED 01/03/2025 8:34 PM CDT [facility] OXYCODONE SCREEN (U) NONE DETECTED NONE DETECTED 01/03/2025 8:34 PM CDT [facility] PHENCYCLIDINE PCP (U) NONE DETECTED NONE DETECTED 01/03/2025 8:34 PM CDT [facility] CANNABINOIDS SCREEN (U) DETECTED(A) NONE DETECTED 01/03/2025 8:34 PM CDT [facility] TRICYCLIC ANTIDEPRESSANT SCREEN (U) NONE DETECTED NONE DETECTED 01/03/2025 8:34 PM CDT [facility] Comment: NOTE: RESULTS OF THIS DRUG SCREEN SHOULD BE USED FOR MEDICAL PURPOSES ONLY AND NOT FOR LEGAL OR EMPLOYEMENT PURPOSES. MEDICATIONS CONTAINING EPHEDRINE MAY CAUSE FALSE POSITIVE AMPHETAMINE. AMPHETAMINE- 500 NG/ML BARBITURATE- 200 NG/ML BENZODIAZEPINE- 150 NG/ML BUPRENORPHINE- 10 NG/ML COCAINE- 150 NG/ML METHAMPHETAMINES- 500 NG/ML METHADONE- 200 NG/ML OPIATE- 100 NG/ML OXYCODONE- 100 NG/ML PCP- 25 NG/ML THC- 50 NG/ML TCA- 300 NG/ML URINE SPECIMEN / Unknown 01/03/2025 8:02 PM CDT us Yoel Higginbotham MD URINE ORDERABLES Final Res ult [facility] [address] [place] [address], [place] [phone] * TEST URINE (01/03/2025 8:02 PM CDT) URINE HCG TEST NEGATIVE NEGATIVE 01/03/2025 8:15 PM CDT [facility] Comment: VERY DILUTE URINE SPECIMENS MAY NOT CONTAIN CHIEF OF FIELD OPERATIONS LEVELS OF HCG. IF IS STILL SUSPECTED, A SERUM HCG TEST IS RECOMMENDED. URINE SPECIMEN FROM URETHRA / Unknown 01/03/2025 8:02 PM CDT us Yoel Higginbotham MD URINE ORDERABLES Final Res ult [facility] [address] [place] [address], [place] [phone] * URINALYSIS, AUTO, COMPLETE (01/03/2025 8:02 PM CDT) COLOR (U) YELLOW 01/03/2025 8:20 PM CDT [facility] TRANSPARENCY CLEAR 01/03/2025 8:20 PM CDT [facility] SPECIFIC GRAVITY (U) 1.010 1.000 - 1.030 01/03/2025 8:20 PM CDT [facility] U PH 8.5 5.0 - 9.0 01/03/2025 8:20 PM CDT [facility] LEUKOCYTES (U) NEGATIVE NEGATIVE 01/03/2025 8:20 PM CDT [facility] NITRITES NEGATIVE NEGATIVE 01/03/2025 8:20 PM CDT [facility] PROTEIN RANDOM (U) NEGATIVE NEGATIVE 01/03/2025 8:20 PM CDT [facility] GLUCOSE (U) NEGATIVE NEGATIVE 01/03/2025 8:20 PM CDT [facility] KETONES MG/DL (U) NEGATIVE NEGATIVE 01/03/2025 8:20 PM CDT [facility] BILIRUBIN (U) NEGATIVE NEGATIVE 01/03/2025 8:20 PM CDT [facility] BLOOD (U) NEGATIVE NEGATIVE 01/03/2025 8:20 PM CDT [facility] WBC/HPF 0-5 0 - 5 /HPF 01/03/2025 8:20 PM CDT [facility] RBC/HPF 0-5 0 - 5 /HPF 01/03/2025 8:20 PM CDT [facility] EPI/HPF RARE /HPF 01/03/2025 8:20 PM CDT [facility] URINE SPECIMEN OBTAINED BY CLEAN CATCH PROCEDURE / Unknown 01/03/2025 8:02 PM CDT Yoel Higginbotham MD URINE ORDERABLES Final Res ult Performing Organization Address [facility]/ZIP Co de Phone Number [facility] [address] [place] [address], [place] [phone] * TSH W/REFLEX (01/03/2025 7:51 PM CDT) TSH 0.973 0.358 - 3.74 uIU/ML 01/03/2025 8:31 PM CDT [facility] Comment: HIGH DOSES OF BIOTIN MAY INTERFERE WITH THIS TEST RESULT. CORRELATION TO CLINICAL HISTORY AND PRESENTATION RECOMMENDED. FREE T4 NOT INDICATED 01/03/2025 7:51 PM CDT us Yeol Higginbotham MD LABORATORY Final Resu lt Performing Organization Address [facility]/ZIP Co de Phone Number [facility] [address] [place] [address], [place] [phone] * (ABNORMAL) COMPREHENSIVE METABOLIC PANEL (01/03/2025 7:51 PM CDT) [facility] Signature GLUCOSE 64(L) 70 - 99 MG/DL 01/03/2025 8:31 PM T [facility] BUN 6(L) 7 - 18 MG/DL 01/03/2025 8:31 PM T [facility] CREATININE S/P/B 0.69 0.55 - 1.02 MG/DL 01/03/2025 8:31 PM T [facility] SODIUM S/P/B 138 136 - 145 MMOL/L 01/03/2025 8:31 PM [facility] POTASSIUM S/P/B 3.5 3.5 - 5.1 MMOL/L 01/03/2025 8:31 PM [facility] CHLORIDE S/P/B 106 100 - 108 MMOL/L 01/03/2025 8:31 PM [facility] CO2 24.5 21 - 32 MMOL/L 01/03/2025 8:31 PM [facility] CALCIUM S/P/B 8.4(L) 8.5 - 10.1 MG/DL 01/03/2025 8:31 PM [facility] BILIRUBIN TOTAL S/P/B 0.3 0.2 - 1.2 MG/DL 01/03/2025 8:31 PM [facility] TOTAL PROTEIN S/P/B 6.9 6.4 - 8.2 G/DL 01/03/2025 8:31 PM [facility] ALBUMIN S/P/B 3.9 3.4 - 5.0 G/DL 01/03/2025 8:31 PM T [facility] AST 12(L) 15 - 37 U/L 01/03/2025 8:31 PM CDT [facility] ALT 16 14 - 55 U/L 01/03/2025 8:31 PM CDT [facility] ALKALINE PHOSPHATASE S/P/B 55 50 - 136 U/L 01/03/2025 8:31 PM CDT [facility] ANION GAP 7.5 5 - 15 MMOL/L 01/03/2025 8:31 PM CDT [facility] BUN CREATININE RATIO 8.7 6 - 26 01/03/2025 8:31 PM CDT [facility] A/G RATIO 1.3 1.0 - 2.0 RATIO 01/03/2025 8:31 PM CDT [facility] GFR ESTIMATE >90 >90 ML/MIN/1.7 3 M2 01/03/2025 8:31 PM CDT [facility] Comment: NOTE: eGFR is not calculated for patients <18 years of age. This is an estimated GFR calculation using the new CKD EPI creatinine equation without race and so does not require a correction factor for race. This estimated GFR should not be used for calculating drug doses. 01/03/2025 7:51 PM CDT us Yoel Higginbotham MD LABORATORY Final Resu lt [facility] [address] [place] [address], * (ABNORMAL) CBC W/DIFF AUTOMATED (01/03/2025 7:51 PM CDT) WBC 6.85 4.4 - 11.0 x10'3/uL 01/03/2025 8:09 PM CDT [facility] RBC 3.91(L) 4.50 - 5.10 x10'6/uL 01/03/2025 8:09 PM CDT [facility] HGB 12.2(L) 12.3 - 15.3 G/DL 01/03/2025 8:09 PM T [facility] HCT 36.6 35.9 - 44.6 % 01/03/2025 8:09 PM T [facility] MCV 93.6 80.0 - 96.0 FL 01/03/2025 8:09 PM T [facility] MCH 31.2(H) 25.3 - 30.9 PG 01/03/2025 8:09 PM T [facility] MCHC 33.3 31.0 - 34.1 G/DL 01/03/2025 8:09 PM [facility] RDW 13.2 12.4 - 15.1 % 01/03/2025 8:09 PM [facility] PLT 259 151 - 353 x10'3/uL 01/03/2025 8:09 PM [facility] MPV 10.0 9.6 - 12.0 FL 01/03/2025 8:09 PM T [facility] RBC MORPHOLOGY NORMAL 01/03/2025 8:09 PM [facility] PLT MORPH. NORMAL 01/03/2025 8:09 PM [facility] WBC MORPHOLOGY NORMAL 01/03/2025 8:09 PM [facility] LYMPHOCYTES % 48.8(H) 15.8 - 45.0 % 01/03/2025 8:09 PM [facility] NEUTROPHILS % 41.4(L) 42.1 - 71.9 % 01/03/2025 8:09 PM [facility] MONOCYTES % 6.9 5.7 - 12.5 % 01/03/2025 8:09 PM T [facility] EOSINOPHILS 1.9 0.0 - 5.6 % 01/03/2025 8:09 PM CDT [facility] BASOPHILS 0.9 0.0 - 1.3 % 01/03/2025 8:09 PM CDT [facility] ABS. NEUTROPHILS 2.84 1.40 - 6.00 x10'3/uL 01/03/2025 8:09 PM CDT [facility] IMMATURE GRANS % 0.1 0.0 - 0.5 % 01/03/2025 8:09 PM CDT [facility] ABS. LYMPHOCYTES 3.34 0.80 - 4.70 x10'3/uL 01/03/2025 8:09 PM CDT [facility] 01/03/2025 7:51 PM CDT us Yoel Higginbotham MD LABORATORY Final Resu lt Performing Organization Address City/[facility]/ZIP Co de Phone Number [facility] [address] [place] [address], * MAGNESIUM (01/03/2025 7:51 PM CDT) MAGNESIUM 2.0 1.8 - 2.4 MG/DL 01/03/2025 8:31 PM CDT [facility] 01/03/2025 7:51 PM CDT us Yoel Higginbotham MD LABORATORY Final Resu lt Performing Organization Address City/[facility]/ZIP Co de Phone Number [facility] [address] [place] [address], * ETHANOL (01/03/2025 7:51 PM CDT) ALCOHOL S/P/B <0.003 <0.003 G/DL 01/03/2025 8:31 PM CDT [facility] 01/03/2025 7:51 PM CDT Yoel Higginbotham MD LABORATORY Final Resu lt Performing Organization Address [facility] Co de Phone Number [facility] [address] [place] [address], * CHLAMYDIA GC RNA (09/29/2023 7:18 AM CDT) SPECIMEN SOURCE URINE 7:18 AM CDT [facility] CHLAMYDIA PCR NEGATIVE NEGATIVE 09/30/2023 12:48 AM CDT [facility] Comment:PERFORMED BY NUCLEIC ACID AMPLIFICATION N.GONORRHOEAE RNA TMA NEGATIVE NEGATIVE 09/30/2023 12:48 AM CDT [facility] Comment:PERFORMED BY NUCLEIC ACID AMPLIFICATION URINE SPECIMEN / Unknown 09/29/2023 7:18 AM CDT Sheldon Eaton DO MICROBIOLOGY - GENERAL ORDERAB LES Final Result Performing Organization Address [facility] Co de Phone Number [facility] [address] [place] [address], [facility] [address] [place] [address], from Last 3 Months or Most Recently Relevant to Health Maintenance Insurance [facility] [place] [address] Care Teams Salvationist Relationship Specialty [place] [address] [facility] [address] [place] [address] PCP - General Nurse Practitioner Family 12/30/23 Kody Sumner MD [address] [address] [address] [place] [address] OBGYN 01/26/23
--- OUTSIDE RECORDS SUMMARY | 2025-01-22 13:16 | XMS_ITS | Clinical Summary ---
Author Organization [facility] Address [address] [place] [address] Care Team Providers Care Motion Study Analyst Name Role Phone Caranga Karla BANSAL-MOLASSES AND CARAMEL OPERATOR Primary Care Provider + Source Comments [facility],non-owned Affiliates and Associated Physician Practices is amultiple site organization consisting of ambulatory clinics and hospital sitesin [place], [place], [place] and [place]. This disclosure is being madepursuant to the Care Everywhere program and may not contain all information available regarding this patient. Last updated 18.[facility] Allergies No known active allergies Medications * Be aware that medications may not be up to date on this document. Alwaysverify current medications with the patient. Norethin Ahwk-Eth Estrad-FE (TAYTULLA) 1-20 MG-MCG(24) CAPS Take by [...] on file Legal Sex Female 5:43 AM SHOULDER JOINER Gender Identity Not on file Sexual Orientation Not on file Last Filed Vital Signs Vital Sign Reading Time Taken Comments Blood Pressure 108/61 06/04/2024 2:45 AM SHOULDER JOINER Pulse 78 06/04/2024 2:45 AM SHOULDER JOINER Temperature 36.6 C (97.8 F) 06/04/2024 2:45 AM SHOULDER JOINER Respiratory Rate 20 06/04/2024 2:45 AM SHOULDER JOINER Oxygen Saturation 99% 06/04/2024 2:45 AM SHOULDER JOINER Inhaled Oxygen Concentration - - Weight 72.9 [...] of 3 - 19+ 3-dose series) 01/12/2023 DEPRESSION SCREENING 05/02/2024 CHLAMYDIA/GONORRHEA SCREENING 09/28/2024 09/29/2023 COVID-19 VACCINE (3 - season) 2024 07/09/2021, 03/28/2021 INFLUENZA VACCINE (#1) 2024 , 06/10/2023, 07/06/2022, Additional history exists PAP SMEAR 01/12/2025 ZOSTER VACCINE (1 of 2) 01/12/2054 HIB VACCINE Aged Out No longer eligi ble based on patient's age to complete this topic MENINGOCOCCAL GROUPS A/C/Y/W VACCINE Aged Out No longer eligible based on patient's age to complete this topic PNEUMOCOCCAL VACCINE Aged Out No long er eligible based on patient's age to complete this topic Insurance [place] [place] [address] SU[employer] [facility] [place] [address] [place] [address] ANTHEM ANTHEM ANTHEM Care Teams Motion Study Analyst Relationship Specialty Start Date End Date Karla Galan APRN-ELO [address] [phone] PCP - General Nurse Practitioner 01/09/20
--- OUTSIDE RECORDS SUMMARY | 2025-01-22 13:16 | XMS_ITS | Patient Health Record ---
Author Organization [facility] Address [address] [place] [address] Care Team Providers Care Glaze Grinder Name Role Phone Hyun Gamino Unavailable [phone] Reason For Referral No Information Medications Medication [...] 2 gram Packet Oral *Pick strength-form from [employer] for eRX* Active Ciprofloxacin HCl 250 MG [...] Coverage End Date [place] [address] [place] [address] [id number] LUISA ROBLERO Self - patient is the insured
--- OUTSIDE RECORDS SUMMARY | 2025-01-22 13:16 | XMS_ITS | Patient Health Record ---
Author Organization [facility] Address [address] [place] [address] Care Team Providers Care Veneer Jointer Offbearer Name Role Phone Amirah Palacios Primary Care [...] Risk Notes Problem Attention deficit hyperactivity disorder (514120478) ADHD (attention deficit hyperactivity disorder) (F90.9) Active confirmed Problem Generalized anxiety disorder (46483342) JASON (generalized anxiety disorder) (F41.1) Active confirmed Problem Bipolar 2 disorder (53225689) Bipolar 2 disorder (F31.81) Active confirmed Plan Of Treatment No Information Insurance Providers Payer Name Payer Address Payer Phone Subscriber Number Group Number Insured Name Patient Relationship to Insured Coverage Start Date Coverage End Date [facility] [address] [place] [address] [id number] Merlyn Mota Self - patient is the insured 3 Medical (General) History Medical History History ICD Code bipolar disorder ADHD Surgical History Surgery Date(Month/Year) nose 2004 Hospitalization History Reason Date(Month/Year)
--- OUTSIDE RECORDS SUMMARY | 2025-01-22 13:16 | XMS_ITS | Clinical Summary ---
Author Organization [facility] Address [address] [place] [address] Care Team Providers Care Supervisor Type Bar And Segment Name Role Phone Kody Francisco MD Primary [...] Encounters Date Type Department Care Team Description 01/01/2025 External Device Data [facility] ABSTRACTION Provider, Abstract 01/01/2025 External Device Data [facility] ABSTRACTION Provider, Abstract 12/05/2024 External Device Data [facility] ABSTRACTION Provider, Abstract 11/27/2024 Telephone [facility] [address] [place] [address] Kody Francisco MD Needs Appointment [...] PERTUSSIS, HEPATITIS B, AND INACTIVATED POLIOVIRUS VACCINE ([id number]), 0.5ML, IM 07/15/2005,2004,2004,03/02 (VARIVAX)(12 MOS UP)VARICELL A VIRUS VACCINE (PF) 0.5 ML, SUB CUT 02/13/2010,2005 HIB, Unspecified Formulation 07/20/2005, 2004,2004,03/02 Hepatitis A Vaccine, Unspeci fied Formulation 02/13/2010,2006 INFLUENZA VACCINE QUADRIVALE NT 6 MOS UP IM 02/06/2019 Influenza, Unspecified Formulation 06/10,07/06/2022,02/06/2019,01/30,07/20/2005,05/13/2005 Pneumococcal 7-valent conjug ate vaccine IM 07/20/2005,05/13/2005,2004,05/02,2004 Family History Medical History Relation Name Comments Other Maternal Aunt cervical / moapa rine cancer Colon Cancer Maternal Grandfather Breast [...] Sex Assigned at Female 05/31/2024 8:03 AM NEWS CORRESPONDENT Legal Sex Female 1:02 PM CDT Gender Identity Not on file Sexual Orientation Straight 05/31/2024 8: 03 AM NEWS CORRESPONDENT Last Filed Vital Signs Vital Sign Reading [...] 01/12/2015 INFLUENZA VACCINE (#1) 2024 03/22/2024, 2018 CERVICAL CANCER SCREENING 01/12/2025 HPV/Cotest (21-29) 01/12/2025 PAP SMEAR 01/12/2025 DTAP/TDAP/TD VACCINES (8 - T d or Tdap) 10/25/2033 10/26/2023, 02/17/2016, 02/13/2010, Additional history exists HEPATITIS B VACCINES Completed 07/15/2005, 2004, 2004, Additional history exists HPV VACCINES Completed 12/01/2016, 02/17/2016 Insurance OUT OF STATE BCBS BLUE ACCESS/TRUE BLUE PPO Advance Directives For more information, please contact: [phone] * Full Code (Latest Code Status on File) Date Activated Date Inactivated Comments 09/11/2024 11:15 AM 09/11/2024 4:11 PM Care Teams Supervisor Type Bar And Segment Relationship Specialty Start Date End Date Kody Francisco MD PCP - General Internal Medicine 06/07/24
[2025-01-22 14:01] LABS: Hematocrit 37.1 % (37.0-47.0); Hemoglobin 12.4 g/dL (12.0-15.0)
== END 2025-01-22 13:06 | disposition home or self-care (01) ==
LOC: ANHSURGERY 13:09
PROVIDERS: Visit Provider Obstetrics & Gynecology
DX: N92.6 Irregular menstruation, unspecified (principal); N83.201 Unspecified ovarian cyst, right side
CPT/HCPCS: 36415; 85014; 85018; 86850; 86900; 86901

== ENCOUNTER 2025-01-24 01:59 | Day surgery (SDC) | payer BC, SELFPAY ==
[2025-01-21 16:12] VITALS: BMI 27.6
--- NOTE | 2025-01-21 16:13 | PC.NURSE ---
[facility] has started construction of its new state of the art ER which will open Spring 2026. With this, we anticipate parking may be a challenge for some our surgical patients and families. Parking spaces are limited but are available for all Surgical, obstetrics, and ER patients sharing this lot. If you arrive and find you are having a hard time finding a parking space, please note that we understand the challenges, please drive around the hospital and park near Hospital Entrance 1. When you enter this entrance, you can ask a volunteer to direct or take you back to the surgical waiting area to check in. We appreciate everyone?s understanding of these expected challenges while we build for your future. Report to the Outpatient Waiting Room, entrance under the green pavilion located off [address], at time _0830_ on date _[phone]_. Planned Procedure Time: _1030_.? Time changes happen often and if your time is changed the preop area will call you the afternoon before. - You and your visitor will be asked to self-screen and do not enter if you have any COVID symptoms. Please call surgeon if you need to reschedule. - A mask is optional within the hospital at this time. Patients may have clear liquids (water, carbonated beverages, clear teas, apple juice) until 3 hours prior to surgery with a maximum of 20 ounces. - No food from midnight until time of surgery and no smoking, or chewing tobacco (or any form of nicotine). No chewing gum, candy or mints. Take only the following medications with a SIP of water on the morning of surgery: ___None___ DO NOT STOP ANY OF YOUR OTHER PRESCRIPTION MEDICATIONS PRIOR TO SURGERY EXCEPT THE FOLLOWING Hold all vitamins and supplements for 3 days per anesthesiologist. Medications to discontinue per physician Date to take last dose Please no make-up, nail ukrainian, hairspray, perfume, deodorant, or body powder the day of surgery.? No jewelry (including any body piercings) or valuables the day of surgery, leave them at home.? Please take a shower or bath the night before, or the morning of, surgery with an antibacterial soap.? Wear comfortable, loose fitting clothing.? - Jewelry must be removed prior to entering the operating room.? Rings and piercings that are not removed may be cut off. - The hospital will not accept responsibility for valuables.? - Please leave all valuables, including medications, at home the day of surgery. If you are going home after surgery, a licensed sales route driver helper must drive you home.? - NO public transportation without another adult if you receive anesthesia. - We recommend that an adult stay with you for 24 hours following discharge. - We also recommend that you do not drive, make important decision, drink alcoholic beverages, or take any drugs that were not prescribed by your health care provider for at least 24 hours after your discharge time. Follow any additional instructions given to you from your surgeon. Telephone instructions given to __Kiersten___and asked if any additional questions and then verbalized understanding. Patient advised to call surgeon office or pre surgery nurse liaison [phone] if any additional questions.
--- NOTE | 2025-01-22 11:52 | PM.IMHP ---
H&P: HPI History of Present Illness Date/Time: 01/22/25 11:52 Chief Complaint: Right ovarian cyst severe pain Narrative: This is a 19-year-old 0 admitted for laparoscopy and right cystectomy secondary to severe pelvic pain ultrasound shows irregularly shaped cyst pain has been continuous she opts for laparoscopic evaluation. She will also undergo hysteroscopy dilatation curettage secondary to bleeding risks and benefits of these procedures reviewed including exclusive of , aspiration pneumonia, bleeding, transfusion, perforation injury to bowel, bladder, ureters, or other internal organs with need for open laparotomy. She received the ACOG handouts entitled laparoscopy and hysteroscopy respectively. She had all questions answered. She asked to proceed. Review of Systems Review of Systems: Pertinent positives per HPI. Patient denies any fever, chills, rash, headache, visual changes, dizziness, cough, runny nose, sore throat, shortness of breath, chest pain, palpitations, nausea, vomiting, diarrhea, constipation, abdominal pain, or any urinary issues. PMFSH Past Medical History Medical History Diarrhea Nausea Abdominal bloating Constipation UTI (urinary tract infection) Surgical History Surgical History No pertinent past surgical history Social History Social History Smoking status: Never smoker Tobacco type: e-cigarettes/vaping Additional smoking assessment comments: Trying to quit. Alcohol intake: current Drinks per week: 2 Alcohol use details: Heavy drinking for awhile, quit for 6 months, recently drinking a few on weekends. Substance use: current Substance use type: marijuana Other substance usage details: At night to help sleep. Living arrangements: with family Spiritual care concerns: No Meds Home Medications and Allergies Home Medications ?Medication ?Instructions ?Recorded ?Confirmed ?Type lisdexamfetamine 40 mg capsule 40 mg PO DAILY 12/28/24 01/21/25 History ([place]) escitalopram oxalate 20 mg tablet 20 mg PO HS 01/21/25 01/21/25 History Allergies Allergy/AdvReac Type Severity Reaction Status Date / Time No Known Allergies Allergy Verified 01/21/25 15:53 Exam Const: General: cooperative, healthy appearing, comfortable and average body habitus Orientation/consciousness: oriented to person, oriented to place and oriented to time Resp: Effort & Inspection: normal respiratory effort Cardio: Rate: regular rate Rhythm: regular rhythm Heart sounds: S1 normal heart sound present and S2 normal heart sound present GI: Inspection: normal to inspection Auscultation: normal bowel sounds : External Female Exam: normal external appearance Speculum Exam - Vagina: normal appearance of the vagina Speculum Exam - Cervix: normal appearance of the cervix Bimanual exam- vagina & uterus: non-tender Bimanual Exam- Adnexa, other: tender bilaterally Assessment and Plan Assessment and plan (1) Pelvic pain: Code(s): R10.2 - Pelvic and perineal pain Status: Acute (2) Right ovarian cyst: Code(s): N83.201 - Unspecified ovarian cyst, right side Status: Acute Plan Proceed with laparoscopic right ovarian cystectomy hysteroscopy dilatation curettage risks benefits were all read
[2025-01-24] VITALS (11 sets, daily range): BP systolic 97–109; BP diastolic 53–71; PULSE 50–84; RESP 13–24; TEMP 36.5–36.6; O2SAT 97–100
--- NOTE | 2025-01-24 06:41 | WPDHPUPDATE1 ---
History and Physical Update Update Date/Time: 01/24/25 06:41 History and Physical has been reviewed, including an updated exam of the patient. There are NO changes in the patient's condition. Risks, benefits, and alternatives have been discussed and questions answered. Patient agrees to proceed with procedure.
[2025-01-24] MEDS: ACETAMINOPHEN 500 MG TABLET 1000 MG PO (09:47)
[2025-01-24] MEDS: KETOROLAC 15 MG/ML VIAL (*BKC) IV PUSH (09:47)
[2025-01-24] MEDS: LACTATED RINGERS 1,000 ML 30 ML IV CONT ×2 (09:51→11:29)
[2025-01-24] MEDS: SCOPOLAMINE 1 MG PATCH 1 PATCH TRANSDERM (09:58)
[2025-01-24 10:07] LABS: BEDSIDEPREGUCG Negative (Negative)
--- NOTE | 2025-01-24 10:13 | WPDANESEPPF ---
Anes - Initial Pre Proc Eval Procedure: Operation Date: 01/24/25 10:30 Proposed Procedures p Laparoscopic Right Ovarian Cystectomy, Hysteroscopy with Dilation and Curettage - Kody Stout MD Date/Time: 01/24/25 10:13 Surgeon: Kody Stout MD Pre Op Diagnosis: Pelvic Pain, Rt Ovarian Cyst, Irrg Bleed Patient Data Age: 20 Gender: F Height: 1.63 m Weight: 73.4 kg Allergies Allergy/AdvReac Type Severity Reaction Status Date / Time No Known Allergies Allergy Verified 01/24/25 09:01 Home Medications ?Medication ?Instructions ?Recorded ?Confirmed ?Type lisdexamfetamine 40 mg capsule 40 mg PO DAILY 12/28/24 01/24/25 History (Vyvanse) escitalopram oxalate 20 mg tablet 20 mg PO HS 01/21/25 01/24/25 History hydrocodone 5 mg-acetaminophen 325 1 tablet PO Q4H PRN pain #20 tabs 01/24/25 Rx mg tablet Laboratory Tests 01/24/25 10:06 POC Urine HCG, Qual Negative (Negative) Patient hx anesthesia problems: none Family hx anesthesia problems: none Results Review: All pre-operative results and documents have been reviewed as part of the pre-operative evaluation. [facility] Past Medical History Medical History Diarrhea Nausea Abdominal bloating Constipation UTI (urinary tract infection) Surgical History Surgical History (Updated 01/24/25 @ 10:14 by Kody Victor MD) H/O exploratory laparotomy Social History Social History (Updated 01/24/25 @ 10:14 by Kody Victor MD) Smoking status: Current some day smoker Tobacco type: e-cigarettes/vaping Additional smoking assessment comments: Trying to quit. Alcohol intake: current Drinks per week: 2 Alcohol use details: Heavy drinking for awhile, quit for 6 months, recently drinking a few on weekends. Substance use: current Substance use type: marijuana Other substance usage details: At night to help sleep. Living arrangements: with family Spiritual care concerns: No Anes - Eval Final PreProcedure Day of Procedure 01/24/25 10:13 Patient weight: overweight Heart: regular rate and rhythm Lungs: clear to auscultation Airway: Mallampati scale class II Neurological: alert and oriented Last oral intake: >/= 8 hours ASA classification: II Emergent: no Anesthetic plan: proceed Anesthesia type and monitoring: general ETT and standard monitoring Results Review: All pre-operative results and documents have been reviewed as part of the pre-operative evaluation. Informed Consent: The patient's anesthetic plan and its attendant risks and benefits were discussed with the patient/family/POA. Questions were solicited and answers provided to the satisfaction of the patient/family/POA.
--- NOTE | 2025-01-24 11:02 | S_PTH ---
PATIENT: Merlyn Villatoro LOC: [facility]#:[id number] AGE/SX: 20/F ROOM: RE01/24/[address]: Kody Stout MD : 2005 BED: DIS: 01/24/2025 SPEC #: [id number] RECD: 01/24/25 13:26 STATUS: PARESH RERoberto #: [id number] [place]: 01/24/25 11:[address]: Kody Sumner DEPT: [facility] Surgical RECD BY: Rena Gastelum ENTERED: 01/24/25 13:27 SP TYPE: Surgical OTHR DR: STAIN REMOVER PHYSICIAN Tissues: A - Endometrial Curettings Procedures: Hematoxylin and Eosin Stain Gross and Microscopic Level 4
--- NOTE | 2025-01-24 11:14 | P.OP_ITS ---
Procedure Note - Detailed Date of Procedure 01/24/25 Pre-op Diagnosis Pelvic Pain, Rt Ovarian Cyst, Irrg Bleed Post-op Diagnosis Other (Pelvic pain/right ovarian cyst/irregular bleeding/endometriosis) Procedure Performed Laparoscopy with right ovarian cyst destruction/destruction of endometriosis/hysteroscopy/dilatation curettage Surgeon Kody Stout MD Anesthesia General Indications Is a 20 year female with severe pelvic pain a small right ovarian cyst and also irregular bleeding Findings Uterus ovaries and tubes were fairly normal the right ovary had a clear follicular cyst. Powder burn endometriosis was seen in the cul-de-sac. On hysteroscopy the uterus sounded to 7.5cm. Irregular endometrial tissue was seen but no definitive pathology Description of Procedure Patient was prepped and draped in the normal sterile fashion placed in the dorsal lithotomy position. Under excellent general trach anesthesia weighted speculum placed in posterior fornix vagina. Anterior lip of the cervix grasped with a single-tooth tenaculum. Quezada's cannula inserted the cervix and attached to the single-tooth. This would be used later for uterine manipulation. The bladder emptied of clear urine the weighted speculum was removed. The gloves were changed. An infraumbilical incision made the Veress needle passed in the abdomen. Abdomen filled with CO2 gas [id number] the 5mm trocar advanced and with the Optiview into the abdomen no injury seen. Patient placed in Trendelenburg and a suprapubic incision made. 5mm trocar advanced under direct visualization assuring no injury. The above findings were seen but 10cc of serosanguineous fluid was seen and this was irrigated suctioned the small areas of endometriosis were cauterized with the 35 w per 2nd monopolar cautery. The small follicular c yst was opened on the right and drained of clear follicular fluid irrigation undertaken again the opposite ovary tube uterus appendix gallbladder and liver edge were all normal. The lower site removed. The gas removed from the abdomen. The upper site removed the incisions closed with 4-0 Monocryl and glue. Attention was turned to the hysteroscopic portion. Uterus sounded 7.5cm. Serial dilatation with fragmented dilators performed followed by passage of the 5mm visualizing hysteroscope using normal saline as visualizing medium. Irregular endometrium was seen each fallopian tube os was able to be seen as well. The uterus was scraped over the entire 360? until a good grating sound was heard. The instruments withdrawn. The patient went recovery in satisfactory condition. All sponge, needle, instrument counts were correct. There were no immediate complications Estimated Blood Loss 5 Drains No Packing No Pathology Yes Complications No immediate complications Condition Stable Disposition PACU
[2025-01-24] MEDS: fentaNYL CITRATE INJ (*CRX) 100 MCG/2 ML VIAL 25 MCG IV PUSH ×2 (11:30→12:10)
[2025-01-24] MEDS: oxyCODONE HCL (*CRX) 5 MG TAB IR PO (13:14)
== END 2025-01-24 13:38 | disposition home or self-care (01) ==
PROVIDERS: Visit Provider Obstetrics & Gynecology
PROC: 0UDB8ZZ Extraction of Endometrium, Via Natural or Artificial Opening Endoscopic (ICD-10-PCS; CPT 58558; principal; 2025-01-24 10:30)
DX: N83.01 Follicular cyst of right ovary (principal); N80.329 Endometriosis of the posterior cul-de-sac, unspecified depth; F17.290 Nicotine dependence, other tobacco product, uncomplicated; F12.90 Cannabis use, unspecified, uncomplicated
CPT/HCPCS: 58662; 58558; 88305; A9270; J1100; J1885; J2003; J2250; J2405; J2704; J3010; J7120